=== PATIENT | male | born 1960 | race Caucasian/White ===

== ENCOUNTER 2020-12-01 13:30 | Emergency (ER) | payer MEDICAID, SELFPAY ==
[2020-12-01 14:13] VITALS: BP 121/81; PULSE 90; RESP 18; TEMP 36.4; O2SAT 97; BMI 25.0
--- NOTE | 2020-12-01 14:13 | ED_ITS ---
HPI - Fall General Chief Complaint: Head Injury Stated Complaint: fell hit head yesterday Time Seen by Provider: 12/01/20 14:13 Source: patient and family Mode of arrival: ambulatory Limitations: no limitations History of Present Illness HPI Narrative: Patient presenting ambulatory via triage with complaint of fall. Per patient and family has had several falls in the setting of alcohol intoxication. He does have a habit of drinking alcohol on a daily basis. He was drinking yesterday when he fell and front of his head on the ground apparently. No LOC. or for dermal symptoms. Slight headache since. MD complaint: fall Onset (ago): day(s) Fall from: standing Place fall occurred: home Loss of consciousness: none Prolonged down time: no Location of injury: head Related Data Allergies Allergy/AdvReac Type Severity Reaction Status Date / Time No Known Allergies Allergy Verified 12/01/20 14:15 [facility] Past Medical History Medical History (Updated 12/02/20 @ 00:01 by Flakito Alexander) Hypertension Surgical History (Updated 12/01/20 @ 14:16 by Becky Cm) No pertinent past surgical history Social History Social History Advance Directives: No Advance Directives Information Provided: No Physical Exam Vital Signs: Vital Signs: Last Vital Signs Temp 97.6 F 12/01/20 14:13 Pulse 90 12/01/20 14:13 Resp 18 12/01/20 14:13 BP 121/81 12/01/20 14:13 Pulse Ox 97 12/01/20 14:13 Body Mass Index 25.0 Course Course Course Narrative: 1410 60-year-old male presenting with complaint of fall in the setting of alcohol intoxication. Last fall yesterday. Has some mild headache since. On exam nontoxic appearing. No obvious signs of trauma. Patient triaged to main emergency room. Head CT ordered. Discharge Plan Discharge Clinical Impression: Closed head injury Patient Disposition: Home, Self-Care Additional Instructions: CT of the head did not show any bleed or skull fracture and did not show any dangerous condition now Best advice is use the walker and try to refrain from drinking Return any time any worse condition or concerns If headache or symptoms persist he may need a 2nd CT to rule out a subdural, which is a very slow bleed that might not be seen on initial imaging, there was no bleed seen today Interventions: ED Discharge Assessment Last Done: 12/01/20 17:53 Discharge Date/Time: 12/01/20 17:54
--- NOTE | 2020-12-01 14:15 | CT_ITS ---
EXAMINATION: CT HEAD WITHOUT CONTRAST CLINICAL INFORMATION: Status post fall. Headache. COMPARISON: None TECHNIQUE: Contiguous axial imaging was performed from the skull base to vertex without intravenous administration of contrast. This CT examination was performed using dose optimization techniques as appropriate, variously including the following: *Automated exposure control *Adjustment of mA and/or kV according to patient size (this includes techniques or standardized protocols for targeted exams where dose is matched to indication/reason for exam; i.e. extremities or head) *Use of iterative reconstruction technique DLP: 778 mGy-cm FINDINGS: There is no evidence of acute intracranial hemorrhage or territorial infarction. No abnormal mass effect or midline shift is seen. Chandler to white matter differentiation is well preserved. No extra-axial fluid collections are identified. The ventricles are normal in size. There is no abnormal attenuation within the brain parenchyma. The osseous structures and soft tissues are normal. The mastoid air cells and visualized portions of the paranasal sinuses are well aerated. CT/CT head/brain wo con IMPRESSION: No acute intracranial process seen
== END 2020-12-01 17:54 | disposition home or self-care (01) ==
PROVIDERS: Emergency Provider Emergency Medicine
DX: S09.90XA Unspecified injury of head, initial encounter (principal); W01.0XXA Fall on same level from slipping, tripping and stumbling without subsequent striking against object, initial encounter; Z91.81 History of falling; I10 Essential (primary) hypertension; F10.920 Alcohol use, unspecified with intoxication, uncomplicated; Y90.9 Presence of alcohol in blood, level not specified; Y93.89 Activity, other specified; Y92.480 Sidewalk as the place of occurrence of the external cause; Y99.9 Unspecified external cause status
CPT/HCPCS: 70450; 99283; 99284

== ENCOUNTER 2020-12-23 04:52 | Inpatient (IN) | payer MEDICAID, SELFPAY ==
[2020-12-23] VITALS (8 sets, daily range): BP systolic 138–171; BP diastolic 0–110; PULSE 95–116; RESP 14–24; TEMP 36.9–37.7; O2SAT 96–100; BMI 24.9
--- NOTE | 2020-12-23 | CT_ITS ---
EXAMINATION: CT CHEST WITHOUT CONTRAST CLINICAL INFORMATION: Question right apical lung lesion COMPARISON: Previous chest x-ray from earlier the same day, cervical spine CT from earlier the same day and previous chest chest CT January 2013 TECHNIQUE: Multidetector volumetric CT imaging of the chest was done. Axial MIP volume rendering provided. Sagittal and coronal reformatted images were obtained. This CT examination was performed using dose optimization techniques as appropriate, variously including the following: *Automated exposure control *Adjustment of mA and/or kV according to patient size (this includes techniques or standardized protocols for targeted exams where dose is matched to indication/reason for exam; i.e. extremities or head) *Use of iterative reconstruction technique DLP: 262 mGy-cm FINDINGS: LUNGS: Evaluation of the lungs is limited due to artifact from respiratory motion. There is evidence of emphysema. There is biapical pleural and parenchymal scarring. There is an abnormal parenchymal density seen at the right lung apex. This is partially calcified. This measures 1.6 x 5.8 cm in AP and transverse dimension axial image 96 series 6 compared to 0.7 x 4.5 cm on January 2013 exam. There is an abnormal parenchymal density that is partially calcified at the left lung apex that is increased as well. This measures 0.8 x 2.7 cm axial image 57 series 6 compared to 0.6 x 2.8 cm on January 2013 exam. This is partially calcified as well. There are areas of increased peripheral or subpleural attenuation seen in the dependent right lower lobe. Appearance is questionable for a dependent atelectasis versus possible small infiltrate. The lungs are otherwise clear. MEDIASTINUM: The visualized thyroid gland is unremarkable. There are no enlarged hilar or mediastinal lymph nodes. The heart does not appear enlarged. There is no coronary artery calcification. There is no pericardial effusion. The thoracic aorta is normal in caliber. There is diffuse wall thickening of the esophagus. PLEURA: There is a very small right pleural effusion or pleural thickening. There is no left pleural effusion. There is no pneumothorax. AXILLA: No lymphadenopathy. UPPER ABDOMEN: There is fatty infiltration of the liver. There is thickening of the left anterior pararenal fascia and lateral conal fascia. OSSEOUS STRUCTURES: There are degenerative changes of the spine. CT/CT chest wo con IMPRESSION: Emphysema. Biapical pleural parenchymal scarring. Interval increase in size in bilateral biapical partially calcified parenchymal densities, right larger than left. PET/CT or chest CT follow-up recommended. Increased peripheral or subpleural attenuation in the right lower lobe, question representing dependent atelectasis versus small infiltrate. Diffuse wall thickening of the esophagus suggestive of esophagitis. Fatty liver. Thickening of the left anterior pararenal and lateral conal fascia. This is a nonspecific finding but most commonly seen with pancreatitis.
--- NOTE | 2020-12-23 04:55 | ECG_ITS ---
Test Reason : SEIZURE Blood Pressure : / mmHG Vent. Rate : 101 BPM Atrial Rate : 101 BPM P-R Int : 146 ms QRS Dur : 086 ms QT Int : 388 ms P-R-T Axes : 077 076 080 degrees QTc Int : 503 ms Sinus tachycardia Otherwise normal ECG No previous ECGs available Referred By: Ruth Sotelo Electronically Signed By:RAD DRIVER MD
--- NOTE | 2020-12-23 04:59 | XR_ITS ---
EXAMINATION: CHEST 1 VIEW CLINICAL INFORMATION: Cough. COMPARISON: None. TECHNIQUE: An AP view of the chest is provided. FINDINGS: The cardiac silhouette is not enlarged. The mediastinal and hilar contours are unremarkable. There are neither pleural effusions nor pneumothoraces. There are no consolidations. The osseous structures are unremarkable. XR/XR chest 1V IMPRESSION: No evidence for acute disease.
--- NOTE | 2020-12-23 05:08 | ED.SEIZURE ---
HPI - Seizure General Chief Complaint: Seizure Stated Complaint: seizure Time Seen by Provider: 12/23/20 04:55 Source: patient Mode of arrival: EMS History of Present Illness HPI Narrative: This is a 60-year-old male chronic alcoholic (multiple bottles a day) and as per who called EMS she purchased a walker for him so that he can be ?more steady on his feet while drinking? ?. EMS was called this evening for patient having seizures after unable to drink alcohol yesterday due to development nausea and vomiting. EMS states that on arrival patient was having tonic-clonic seizures and was noted to be cyanotic in appearance. On arrival, patient is poor historian and appears to still be somewhat postictal. MD complaint: seizure Related Data Allergies Allergy/AdvReac Type Severity Reaction Status Date / Time No Known Allergies Allergy Verified 12/01/20 14:15 Review of Systems Review of Systems: Yes Unobtainable due to mental condition PMFSH Past Medical History Source: nursing notes reviewed Medical History (Updated 12/23/20 @ 05:13 by Ruth Sotelo MD) Alcohol abuse DTs (delirium tremens) Hypertension Surgical History (Updated 12/01/20 @ 14:16 by Becky Cm) No pertinent past surgical history Social History Social History Advance Directives: No Physical Exam Vital Signs: Vital Signs: Last Vital Signs Temp 98.5 F 12/23/20 05:19 Pulse 102 H 12/23/20 06:00 Resp 24 H 12/23/20 06:00 BP 164/107 H 12/23/20 06:00 Pulse Ox 98 12/23/20 06:00 Body Mass Index 24.9 VITAL SIGNS: Reviewed. GENERAL: Well developed, well nourished, in no acute distress. HEAD: Normocephalic/atraumatic, facial plethora EYES: PERRLA, EOMI NOSE: Nares patent bilateral OROPHARYNX: no oral lesions noted, posterior pharynx clear NECK: Supple, no adenopathy LUNGS: Normal breath sounds. No adventitious sounds or accessory muscle use. SpO2<97> CARDIOVASCULAR: Regular rate and rhythm without noted murmurs ABDOMEN: Soft, non-tender, non-distended with bowel sounds. EXTREMITIES: Cool to touch SKIN: Inspection of the skin reveals no rashes NEUROLOGIC: Postictal, no focal deficits noted but patient weak, tremulousness Course Course Course Narrative: This is a 60-year-old male with history and clinical presentation consistent with alcohol DTs secondary to withdrawal when unable to consume alcohol due to nausea and vomiting. Patient received 2 mg Versed here in the emergency department. - labs, chest x-ray, phenobarb protocol, COVID testing Signed out to Dr Dorsey: Follow-up labs, needs admission Reevaluation(s) Reevaluation #1: On re-evaluation patient is more alert and states he only takes a couple of shots a day but does endorse he has had withdrawal seizures before. Time: 06:30 MDM - Seizure Lab Data Result diagrams: 12/23/20 06:27 12/23/20 06:28 Labs: Lab Results 12/23/20 Range/Units 05:45 COVID-19 ([facility]) Negative (Negative) COVID-19 Clin Com See Note ECG Data Attestation: I personally reviewed and interpreted this ECG as follows: Prior ECG tracings: not available for review Interpretation: Sinus tachycardia, HR-101, no evidence of acute ischemia, NJ/QRS are within normal limits, but QTC is prolonged.
[2020-12-23 06:03] LABS: COVID-19 Test Negative (Negative)
--- NOTE | 2020-12-23 06:37 | CT_ITS ---
EXAMINATION: CT HEAD WITHOUT CONTRAST CT CERVICAL SPINE WITHOUT CONTRAST CLINICAL INFORMATION: Fall. Seizure. COMPARISON: CT head dated 12/01/2020 TECHNIQUE: Multidetector CT imaging of the head and cervical spine was performed without the use of intravenous contrast. Multiplanar reformats are reviewed. This CT examination was performed using dose optimization techniques as appropriate, variously including the following: *Automated exposure control *Adjustment of mA and/or kV according to patient size (this includes techniques or standardized protocols for targeted exams where dose is matched to indication/reason for exam; i.e. extremities or head) *Use of iterative reconstruction technique DLP: 46496 mGy-cm. FINDINGS: There is no evidence of acute intracranial hemorrhage or territorial infarction. No abnormal mass effect or midline shift is seen. Chandler to white matter differentiation is well preserved. No extra-axial fluid collections are identified. The ventricles are normal in size. Mild patchy subcortical and periventricular white matter low-attenuation changes statistically related to chronic small vessel ischemic disease. The osseous structures and soft tissues are normal. Mucus retention present within the right maxillary sinus. Remainder of the paranasal sinuses and mastoid air cells are clear. Atlantooccipital alignment is maintained. The vertebral bodies and posterior elements align normally. No acute fracture or subluxation. Vertebral body heights are maintained. Small endplate osteophytes present throughout the cervical spine with accompanying of vertebral arthrosis particularly at C6-C7 bilaterally, C3-C4 on the right. Moderate facet arthropathy at C2-C3 and C3-C4 on the right. Paraspinal soft tissues are unremarkable. Lung apices redemonstrate bullous emphysema and biapical pleural-parenchymal scarring. The appearance of the pleural parenchymal scarring is stable at the left lung apex but appears more masslike at the right lung apex, associated with calcifications. CT/CT cervical spine wo con IMPRESSION: * No acute intracranial pathology. [id number] chronic white matter small vessel ischemic changes. * No cervical spine fracture or malalignment. * Severe bullous emphysema with biapical pulmonary pleural-parenchymal scarring, stable in appearance of the left lung apex but more masslike in appearance of the right lung apex, associated with dystrophic calcification supporting chronic postinflammatory etiology. Nevertheless, given the patient's risk factors, PET/CT may be indicated to exclude neoplasm at the right lung apex.
--- NOTE | 2020-12-23 06:37 | CT_ITS ---
EXAMINATION: CT HEAD WITHOUT CONTRAST CT CERVICAL SPINE WITHOUT CONTRAST CLINICAL INFORMATION: Fall. Seizure. COMPARISON: CT head dated 12/01/2020 TECHNIQUE: Multidetector CT imaging of the head and cervical spine was performed without the use of intravenous contrast. Multiplanar reformats are reviewed. This CT examination was performed using dose optimization techniques as appropriate, variously including the following: *Automated exposure control *Adjustment of mA and/or kV according to patient size (this includes techniques or standardized protocols for targeted exams where dose is matched to indication/reason for exam; i.e. extremities or head) *Use of iterative reconstruction technique DLP: 45981 mGy-cm. FINDINGS: There is no evidence of acute intracranial hemorrhage or territorial infarction. No abnormal mass effect or midline shift is seen. Chandler to white matter differentiation is well preserved. No extra-axial fluid collections are identified. The ventricles are normal in size. Mild patchy subcortical and periventricular white matter low-attenuation changes statistically related to chronic small vessel ischemic disease. The osseous structures and soft tissues are normal. Mucus retention present within the right maxillary sinus. Remainder of the paranasal sinuses and mastoid air cells are clear. Atlantooccipital alignment is maintained. The vertebral bodies and posterior elements align normally. No acute fracture or subluxation. Vertebral body heights are maintained. Small endplate osteophytes present throughout the cervical spine with accompanying of vertebral arthrosis particularly at C6-C7 bilaterally, C3-C4 on the right. Moderate facet arthropathy at C2-C3 and C3-C4 on the right. Paraspinal soft tissues are unremarkable. Lung apices redemonstrate bullous emphysema and biapical pleural-parenchymal scarring. The appearance of the pleural parenchymal scarring is stable at the left lung apex but appears more masslike at the right lung apex, associated with calcifications. CT/CT head/brain wo con IMPRESSION: * No acute intracranial pathology. [id number] chronic white matter small vessel ischemic changes. * No cervical spine fracture or malalignment. * Severe bullous emphysema with biapical pulmonary pleural-parenchymal scarring, stable in appearance of the left lung apex but more masslike in appearance of the right lung apex, associated with dystrophic calcification supporting chronic postinflammatory etiology. Nevertheless, given the patient's risk factors, PET/CT may be indicated to exclude neoplasm at the right lung apex.
[2020-12-23] MEDS: LORazepam 2 MG/ML VIAL 1 MG IVPUSH (06:43)
[2020-12-23] MEDS: Magnesium Sulfate/H2O 2 GM/50 ML PIGGYBACK IV (06:44)
[2020-12-23 07:01] LABS: Ethanol < 10 mg/dL
[2020-12-23 07:06] LABS: Basophils Percent Auto 0.2 % (0-2); Hematocrit 38.8 % (42-52); Imm Gran Abs Auto 0.02 X10*3/uL (0.00-0.03); Imm Gran Pct Auto 0.3 % (0.0-0.4); Lymphocytes Absolute Auto 0.3 X10*3/uL (1.2-4.9); Lymphocytes Percent Auto 5.1 % (20-40); MANUAL DIFF FLAG SCAN; Mean Corpuscular HGB Conc 33.5 g/dl (31.0-36.0); Mean Corpuscular Volume 101.6 fL (80-98); Mean Platelet Volume 11.7 fL (9.4-12.4); Monocytes Absolute Auto 0.4 X10*3/uL (0.1-1.2); Monocytes Percent Auto 6.6 % (2-11); NRBC Pct Auto 0.3 /100WBC (0.0-0.2); Neutrophils Absolute Auto 5.5 X10*3/uL (2.0-8.3); Neutrophils Percent Auto 87.8 % (45-73); PLT CLUMP 1; Red Blood Count 3.82 X10*6/uL (4.60-5.80); Red Cell Distribution Width 15.9 % (11.0-16.0); SCAN SMEAR FLAG 1
[2020-12-23 07:28] LABS: White Blood Count 6.2 X10*3/uL (4.8-10.8)
[2020-12-23 07:32] LABS: Alanine Aminotransferase 102 U/L (0-40); Albumin Level 3.5 g/dL (3.5-5.0); Alkaline Phosphatase 158 U/L (39-117); Anion Gap 30 (12-20); Aspartate Amino Transferase 243 U/L (5-37); Bilirubin Total 4.2 mg/dL (0.0-1.0); Blood Urea Nitrogen 15 mg/dL (9-16); Calcium 7.6 mg/dL (8.4-10.2); Carbon Dioxide 15 mmol/L (22-29); Chloride 91 mmol/L (96-108); Creatinine Clr Calc Pharmacy 75.9; Estimated Glomerular Filt Rate > 60; Glucose Random 166 mg/dL (60-115); Lipase 1415 U/L (8-78); Magnesium 1.5 mg/dL (1.6-2.6); Potassium 4.8 mmol/L (3.3-5.1); Sodium 131 mmol/L (135-145); Total Protein 7.5 g/dL (6.5-8.0)
--- NOTE | 2020-12-23 07:34 | CT_ITS ---
EXAMINATION: CT ABDOMEN AND PELVIS WITH CONTRAST CLINICAL INFORMATION: Elevated LFTs. Lipase 1400 COMPARISON: None TECHNIQUE: Multidetector volumetric images were obtained from the superior aspect of the liver through the pubic symphysis following administration 85 mL of Omnipaque 350 intravenous contrast. Sagittal and coronal reformatted images were obtained on the technologist's workstation. Oral contrast: No This CT examination was performed using dose optimization techniques as appropriate, variously including the following: *Automated exposure control *Adjustment of mA and/or kV according to patient size (this includes techniques or standardized protocols for targeted exams where dose is matched to indication/reason for exam; i.e. extremities or head) *Use of iterative reconstruction technique DLP: 2482 mGy-cm FINDINGS: LUNG BASES: There is dependent right basilar atelectasis. The left lung base is clear. The heart size is normal. LIVER, GALLBLADDER, AND BILIARY TREE: The liver is normal in and shape. There is diffuse hypo-attenuation. No focal hepatic lesion or biliary ductal dilatation is present. The gallbladder is unremarkable with no evidence of radiopaque gallstones, gallbladder wall thickening, or obvious pericholecystic inflammatory changes. PANCREAS: The pancreas is homogeneous density and normal size. There is mild haziness along with tail of the pancreas There is mild peripancreatic fat stranding and paracolic fluid collection. Question pancreatitis SPLEEN: Unremarkable. ADRENAL GLANDS: Unremarkable. KIDNEYS AND URETERS: The kidneys are normal in size, shape, and attenuation. No hydronephrosis, hydroureter, or calculi seen. No perinephric stranding. BLADDER: Unremarkable. GASTROINTESTINAL TRACT: The small and large bowel are unremarkable. The appendix is unremarkable. ABDOMINAL WALL: No significant hernia is appreciated. LYMPH NODES: Normal. VASCULAR: Unremarkable. PELVIC VISCERA: There is no free fluid or mass. No abnormal lymph nodes or inguinal hernia.. OSSEOUS STRUCTURES:There is loss of disc height with vacuum disc phenomena and spondylosis L5-S1 disc level. No lytic or sclerotic process seen. CT/CT abdomen pelvis w con IMPRESSION: Diffuse hepatic steatosis without any visible focal mass. Mild posterior peripancreatic fat stranding along the tail of the pancreas with minimal fluid in the paracolic gutter. Findings are suspicious for pancreatitis.
[2020-12-23] MEDS: PHENobarbitaL sodium 130 MG/ML VIAL 283 MG IM (08:29)
[2020-12-23] MEDS: iohexoL 350 MG/ML 100 ML INFUS..BTL IV (08:30)
[2020-12-23 09:08] LABS: SLIDE REVIEW VERIFIED
[2020-12-23 10:09] LABS: Lactic Acid 2.4 mmol/L (0.5-2.0)
[2020-12-23] MEDS: PHENobarbitaL sodium 130 MG/ML VIAL 212 MG IM ×2 (10:53→14:35)
[2020-12-23] MEDS: 0.9 % Sodium Chloride 500 ML IV (10:53)
--- NOTE | 2020-12-23 10:54 | P.HPHOSP_ITS ---
History of Present Illness Date of Service: 12/23/20 Chief Complaint: Seizure 60-year-old man presenting to the ER after having a alcohol withdrawal seizure. 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 He reported that he he became quite sick vomiting multiple times over the last day and a half. He denied any blood in his vomit. Denied any diarrhea. Did report some epigastric abdominal pain that was often on. According to the patient he has no history of seizures past. He denied recent illness, fever, chills. He reports that he had been working up to 6 months ago however denied elaborate what transpired. Abdominal CT in the ER showed pancreatitis and hepatic steatosis. Sodium 131, lactic acid 2.4, magnesium 1.5, bilirubin 4.2, AST 243, ALT 102. vital signs stable though he was tachycardic. In the ER , he was given lorazepam, banana bag, magnesium and started on phenobarbital protocol. Review of Systems Review of Systems: Denies any recent fever chills or decrease in appetite respiratory denies any shortness of breath coverage production cardiovascular is adjustment of any PND or edema gastrointestinal See HPI genitourinary denies any dysuria frequency or hematuria musculoskeletal denies any joint pain or swelling neuropsych denies any weakness or seizures all other systems reviewed are negative [facility] Medical History (Updated 12/23/20 @ 07:40 by Elisa Dorsey DO) Alcohol abuse DTs (delirium tremens) Hypertension Surgical History (Updated 12/01/20 @ 14:16 by Becky Cm) No pertinent past surgical history Social History Advance Directives: No Meds Allergies Allergy/AdvReac Type Severity Reaction Status Date / Time No Known Allergies Allergy Verified 12/01/20 14:15 Home Medications Medication Instructions Recorded Confirmed Type metoprolol tartrate 50 mg PO BID 12/23/20 12/23/20 History Physical Exam Vital Signs and Narrative: Vital Signs: Last Vital Signs Temp 98.5 F 12/23/20 05:19 Pulse 95 12/23/20 06:42 Resp 20 12/23/20 06:42 BP 157/103 H 12/23/20 06:42 Pulse Ox 96 12/23/20 06:42 Body Mass Index 24.9 Appearing tired head is normocephalic atraumatic eyes pupils are PERRLA sclera is anicteric mouth throat mucous membranes are intact and moist neck is supple no lymphadenopathy, no JVD noted lung sounds are clear to auscultation heart regular rate rhythm, clear S1, S2 positive bowel sounds, abdomen is soft, mild tenderness neuro patient is alert x3, no focal deficits, tremulous hands Results Labs CBC and Chem 7: 12/23/20 06:27 12/23/20 06:28 Labs: Laboratory Results - last 24 hr 12/23/20 12/23/20 12/23/20 05:45 06:27 06:28 MCV 101.6 H MCH 34.0 H MCHC 33.5 RDW 15.9 Plt Count TNP MPV 11.7 Immature Gran % (Auto) 0.3 Neut % (Auto) 87.8 H Lymph % (Auto) 5.1 L [place] % (Auto) 6.6 Eos % (Auto) 0.0 Baso % (Auto) 0.2 Lymph # (Auto) 0.3 L [place] # (Auto) 0.4 Eos # (Auto) 0.0 Baso # (Auto) 0.0 Abs Immat Gran (auto) 0.02 Absolute Neuts (auto) 5.5 Absolute Nucleated RBC 0.020 H Nucleated RBC % (auto) 0.3 H Smear Tech's Comments VERIFIED Anion Gap 30 H Estim Creat Clear Calc 75.9 Estimated GFR > 60 Random Glucose 166 H Lactic Acid Calcium 7.6 L Magnesium 1.5 L Total Bilirubin 4.2 H AST 243 H ALT 102 H Alkaline Phosphatase 158 H Total Creatine Kinase Total Protein 7.5 Albumin 3.5 Lipase Ethyl Alcohol COVID-19 (BRENDAN) Negative COVID-19 Clin Com See Note 12/23/20 12/23/20 12/23/20 06:28 06:28 06:28 MCV MCH MCHC RDW Plt Count MPV Immature Gran % (Auto) Neut % (Auto) Lymph % (Auto) [place] % (Auto) Eos % (Auto) Baso % (Auto) Lymph # (Auto) [place] # (Auto) Eos # (Auto) Baso # (Auto) Abs Immat Gran (auto) Absolute Neuts (auto) Absolute Nucleated RBC Nucleated RBC % (auto) Smear Tech's Comments Anion Gap Estim Creat Clear Calc Estimated GFR Random Glucose Lactic Acid Calcium Magnesium Total Bilirubin AST ALT Alkaline Phosphatase Total Creatine Kinase 65 Total Protein Albumin Lipase 1415 H Ethyl Alcohol < 10 COVID-19 (BRENDAN) COVID-19 Clin Com 12/23/20 09:25 MCV MCH MCHC RDW Plt Count MPV Immature Gran % (Auto) Neut % (Auto) Lymph % (Auto) [place] % (Auto) Eos % (Auto) Baso % (Auto) Lymph # (Auto) [place] # (Auto) Eos # (Auto) Baso # (Auto) Abs Immat Gran (auto) Absolute Neuts (auto) Absolute Nucleated RBC Nucleated RBC % (auto) Smear Tech's Comments Anion Gap Estim Creat Clear Calc Estimated GFR Random Glucose Lactic Acid 2.4 H* Calcium Magnesium Total Bilirubin AST ALT Alkaline Phosphatase Total Creatine Kinase Total Protein Albumin Lipase Ethyl Alcohol COVID-19 (BRENDAN) COVID-19 Clin Com Imaging Radiologist's Impressions: Impressions Chest X-Ray 12/23/20 04:59 IMPRESSION: No evidence for acute disease. Cervical Spine CT 12/23/20 06:37 IMPRESSION: * No acute intracranial pathology. [id number] chronic white matter small vessel ischemic changes. * No cervical spine fracture or malalignment. * Severe bullous emphysema with biapical pulmonary pleural-parenchymal scarring, stable in appearance of the left lung apex but more masslike in appearance of the right lung apex, associated with dystrophic calcification supporting chronic postinflammatory etiology. Nevertheless, given the patient's risk factors, PET/CT may be indicated to exclude neoplasm at the right lung apex. Head CT 12/23/20 06:37 IMPRESSION: * No acute intracranial pathology. [id number]-[id number] chronic white matter small vessel ischemic changes. * No cervical spine fracture or malalignment. * Severe bullous emphysema with biapical pulmonary pleural-parenchymal scarring, stable in appearance of the left lung apex but more masslike in appearance of the right lung apex, associated with dystrophic calcification supporting chronic postinflammatory etiology. Nevertheless, given the patient's risk factors, PET/CT may be indicated to exclude neoplasm at the right lung apex. Abdomen/Pelvis CT 12/23/20 07:34 IMPRESSION: Diffuse hepatic steatosis without any visible focal mass. Mild posterior peripancreatic fat stranding along the tail of the pancreas with minimal fluid in the paracolic gutter. Findings are suspicious for pancreatitis. Assessment and Plan (1) Alcohol withdrawal seizure: Qualifiers: Complication of substance-induced condition: uncomplicated Qualified Code(s): F10.230 - Alcohol dependence with withdrawal, uncomplicated; R56.9 - Unspecified convulsions Status: Acute (2) Elevated liver function tests: Status: Acute (3) Pancreatitis: Qualifiers: Acute pancreatitis complication: unspecified Chronicity: acute Pancreatitis type: alcohol induced Qualified Code(s): K85.20 - Alcohol induced acute pancreatitis without necrosis or infection Status: Acute 60-year-old man admitted with alcohol withdrawal seizure, found to have multiple other electrolyte abnormalities in pancreatitis. Incidental lung mass found on x-ray. next Alcohol withdrawal seizure. Alcohol cessation over the last 2 days. No history of seizures in the past. Patient placed on phenobarbital protocol, seizure precautions, monitor neuro status. Discussed the importance of safely stopping chronic alcohol use. Pancreatitis. Related to heavy alcohol use. Continue IV fluid hydration. GI consult. Transaminitis. Alcohol abuse, hepatic steatosis. GI to follow. Check LFTs tomorrow, IV fluids. Hypomagnesemia. Related to alcohol use, dehydration, poor appetite. Repleted, recheck this evening. Hyponatremia. Related to alcohol use. Follow BMP. Avoid over correction. Incidental lung mass. Chest CT ordered. If abnormal consider consulting pulmonology. Hypertension. Continue metoprolol. DVT prophylaxis with heparin Discussed with Dr. Topete Full code
[2020-12-23 11:01] LABS: HCO3 VBG 21 mmol/L; PCO2 VBG 30 mmHg; PO2 VBG 100 mmHg; pH VBG 7.44 (7.32-7.43)
[2020-12-23 11:02] LABS: Base Excess VBG -1.9 mmol/L
[2020-12-23 11:04] LABS: Glucose Urine UA NEG (NEG); Leukocyte Esterase Urine NEG (NEG); Nitrite Urine NEG (NEG); Specific Gravity - Urine 1.015 (1.005-1.025); Urine Blood 2+ (NEG); Urine Ketones 40 MG/DL (NEG); Urine Protein 1+ MG/DL (NEG-TRACE)
[2020-12-23 11:05] LABS: Appearance Urine CLEAR; Color Urine YELLOW
[2020-12-23 11:10] LABS: Prothrombin Time 11.4 SEC (10.8-13.0)
[2020-12-23 11:20] LABS: WBC Urine 0-2 /HPF (0-4)
[2020-12-23 11:28] LABS: Reflex Lactate? Lactic Acid Added
[2020-12-23] MEDS: Heparin Sodium,Porcine 5,000 UNIT/ML VIAL 5000 UNIT SUBCUT (14:35)
[2020-12-23] MEDS: Lactated Ringers 1,000 ML 150 ML IVCONT ×2 (14:36→22:32)
[2020-12-23 15:08] LABS: Anion Gap 22 (12-20); Blood Urea Nitrogen 13 mg/dL (9-16); Calcium 7.6 mg/dL (8.4-10.2); Carbon Dioxide 22 mmol/L (22-29); Chloride 93 mmol/L (96-108); Creatinine Clr Calc Pharmacy 98.1; Estimated Glomerular Filt Rate > 60; Glucose Random 122 mg/dL (60-115); Magnesium 2.1 mg/dL (1.6-2.6); Potassium 4.1 mmol/L (3.3-5.1); Sodium 133 mmol/L (135-145)
--- NOTE | 2020-12-23 17:51 | P.EN_ITS ---
Event Note Date of Service: 12/23/20 Event Note: Addendum to H and P by Mid-level Provider I saw and examined the patient and participated in the mckinnon portion of the E/M service. I agree with the history and exam as documented by ADMIN SECRETARY. Pt presents with seizure and likely realted to alcohol withdrawal. Will admit for for Phenobarbital protocol for withdrawal and monitoring for seizureup. Otherwise, I agree with assessment and plan as outlined in the H and P.
--- NOTE | 2020-12-23 18:23 | CT_ITS ---
EXAMINATION: CT HEAD WITHOUT CONTRAST CLINICAL INFORMATION: EtOH COMPARISON: CT head 12/23/2020, 7:47 AM TECHNIQUE: Contiguous axial imaging was performed from the skull base to vertex without intravenous administration of contrast. Coronal and sagittal reformatted images are performed at the CT scanner. [This CT examination was performed using dose optimization techniques as appropriate, variously including the following: *Automated exposure control *Adjustment of mA and/or kV according to patient size (this includes techniques or standardized protocols for targeted exams where dose is matched to indication/reason for exam; i.e. extremities or head) *Use of iterative reconstruction technique] DLP: 682 mGy-cm. FINDINGS: There is no evidence of acute intracranial hemorrhage or territorial infarction. No abnormal mass-effect or midline shift is seen. Chandler to white matter differentiation is well preserved. No extra-axial fluid collections are identified. There is age-appropriate atrophy with prominence of the ventricles and the sulci and hypodensity of the periventricular white matter due to chronic small vessel ischemic disease. There are vascular calcifications of the internal carotid arteries bilaterally. There is no osseous abnormality. There is sinus mucosal thickening in the ethmoid sinuses bilateral. The mastoid air cells and middle ear cavities are normally aerated. CT/CT head/brain wo con IMPRESSION: No acute intracranial pathology.
--- NOTE | 2020-12-23 19:28 | PM.GICN ---
History of Present Illness Data of Consult Service Date: 12/23/20 Requesting physician: Maribel Yost Primary Care Provider: None Physician/MD Nalini HPI Reason for consult: Abdominal pain, abnormal CT/? pancreatitis, and abnormal liver profile. 60 yo male, who is a new patient to me. He drinks significant amount of whiskey daily. Came to the ER due to abdominal pain, nausea, vomiting for at least a day and a half. He has not had similar episode in the past. Review of Systems Review of Systems: Yes all other systems are reviewed and are negative Cardiovascular: Cardiovascular: Denies chest pain, Reports epigastric discomfort, Denies leg edema, Denies Loss of Consciousness, Denies palpitations and Denies dyspnea on exertion Respiratory: Respiratory: Denies cough and Denies dyspnea on exertion Gastrointestinal: Gastrointestinal: Reports no additional gastrointestinal complaints Psychiatric: Comments: Chronic alcohol abuse. Endocrine: Endocrine: Denies palpitations PMFSH Past Medical History Medical History (Updated 12/23/20 @ 07:40 by Elisa Dorsey DO) Alcohol abuse DTs (delirium tremens) Hypertension Surgical History Surgical History Hx of colonoscopy No pertinent past surgical history Social History Social History (Updated 12/23/20 @ 19:31 by Karen Roth MD) Household Members: Spouse Housing: House Do you presently have visiting nurse or other home services: No Smoking Status: Never smoker Second Hand Smoke Exposure: No Use of substances other than those prescribed or required for medical reasons: No Currently Displaying Signs/Symptoms of Drug Intoxication Withdrawal: No Have you been hit, kicked, punched, or otherwise hurt by someone within the past year? If so, by whom?: No Do you feel safe in your current relationship?: Yes Is there a partner from a previous relationship who is making you feel unsafe now?: No Are you made to feel afraid or neglected: No Advance Directives: No Do you have thoughts of harming others: None Do you have a plan to hurt others: No Plan Recently lost weight without trying: No service: Yes Current occupational status: unemployed Meds Allergies Allergy/AdvReac Type Severity Reaction Status Date / Time No Known Allergies Allergy Verified 12/01/20 14:15 Home Medications Medication Instructions Recorded Confirmed Type metoprolol tartrate 50 mg PO BID 12/23/20 12/23/20 History Physical Exam Vital Signs: Vital Signs: Last Vital Signs Temp 99.4 F 12/23/20 14:38 Pulse 110 H 12/23/20 19:24 Resp 14 12/23/20 19:24 BP 138/96 H 12/23/20 19:24 Pulse Ox 99 12/23/20 19:24 Body Mass Index 24.9 Const: General: alert, acute distress and ill appearing Orientation/consciousness: patient oriented x3 Resp: Auscultation: clear to auscultation bilaterally and diminished lung sounds Cardio: Rate: regular rate Rhythm: regular rhythm Heart sounds: no murmurs GI: Inspection: No abdominal wall ecchymosis and Yes distended Palpation (GI): Soft to palpation and Tenderness to palpation present (GI) Rectal Exam - Male: Yes deferred Neuro: General: patient oriented x3 Results Labs CBC & Chem 7: 12/24/20 06:29 12/24/20 06:29 Labs: Short CBC 12/23/20 Range/Units 06:27 WBC 6.2 (4.8-10.8) X10*3/uL Hgb 13.0 L (14.0-18.0) g/dl Hct 38.8 L (42-52) % Plt Count TNP BMP 12/23/20 12/23/20 06:28 14:32 Sodium 131 L 133 L Potassium 4.8 4.1 Chloride 91 L 93 L Carbon Dioxide 15 L 22 BUN 15 13 Creatinine 1.06 0.82 Calcium 7.6 L 7.6 L Cardiac Enzymes 12/23/20 Range/Units 06:28 Total Creatine Kinase 65 (38-174) U/L Liver Function 12/23/20 Range/Units 06:28 Total Bilirubin 4.2 H (0.0-1.0) mg/dL AST 243 H (5-37) U/L ALT 102 H (0-40) U/L Alkaline Phosphatase 158 H (39-117) U/L Albumin 3.5 (3.5-5.0) g/dL Urine 12/23/20 Range/Units 10:32 Urine Color YELLOW Urine Appearance CLEAR Urine pH 6.0 (5.0-8.0) Ur Specific [place] 1.015 (1.005-1.025) Urine Protein 1+ H (NEG-TRACE) MG/DL Urine Glucose (UA) NEG (NEG) MG/DL Assessment and Plan (1) Elevated liver function tests: Status: [facility]: BILI/ALK PHOS: 0.3/46, AST/ALT: /--ALB-4.2-CT did not show Hepatomegaly. There was decreased attenuation c/ Hepatic Steatosis.--No gallstones noted--may need U/S Changes TODAY consistent with possible Acute Steatohepatitis. monitor daily. Will follow (2) Alcohol abuse: Status: Acute Patient on withdrawal protocol (3) Pancreatitis: Qualifiers: Acute pancreatitis complication: unspecified Chronicity: acute Pancreatitis type: alcohol induced Qualified Code(s): K85.20 - Alcohol induced acute pancreatitis without necrosis or infection Status: Acute CT ABD--suggested acute pancreatitis --tail of pancreas--the LIPASE was elevated @ 1415. Follow Lipase, CA++,ALB. Diet as tolerated low fat, if clears include ENSURE CLEAR TID
--- NOTE | 2020-12-23 20:37 | PC.NURSE ---
PT ASSISTED TO BEDSIDE COMMODE, HAD A BM. PT PULLING OFF HOSPITAL GOWN BEFORE ASSISTED TO COMMODE. PT STILL CONFUSED AT TIMES.
[2020-12-23] MEDS: Metoprolol Tartrate 50 MG TABLET PO (21:43)
[2020-12-23] MEDS: PHENobarbitaL 15 MG TABLET 45 MG PO (21:43)
--- NOTE | 2020-12-23 22:48 | MHC.CM.PN ---
CM met with pt. Orientated to person and place. Unsure what happened to him that brought him to the hospital. Reviewed seizure with pt. States has happened before. States he has a problem with alcohol . CM asked if he would be willing to speak with recovery/addiction services. Agreeable. [place] text to Arben Alarcon. Pt unsure about PCP. No HCP. Pt has just received phenobarbital, a bit sleepy and vague. Will address PCP and HCP tomorrow. Tells CM he was in the [facility] 6 years. Does not use [facility] services. Denies using a walker or cane. CM explained to pt that he is admitted, but will stay in the ED until a inpatient bed becomes available. D/C plan is home without services with to provide transportation. CM to follow for D/C needs.
--- NOTE | 2020-12-23 23:14 | PC.NURSE ---
PT ASSISTED BY 2 TO BEDSIDE COMMODE. PT CONFUSED AND UNSTEADY ON HIS FEET. PT HAS small amount of diarrhea. pt asked, after having difficulty understanding commands will i be normal again?
[2020-12-24] VITALS (8 sets, daily range): BP systolic 125–161; BP diastolic 70–96; PULSE 72–112; RESP 18–20; TEMP 36.6–37.3; O2SAT 94–98
[2020-12-24] MEDS: Heparin Sodium,Porcine 5,000 UNIT/ML VIAL 5000 UNIT SUBCUT ×3 (01:26→23:43)
--- NOTE | 2020-12-24 05:25 | PC.NURSE ---
PT UP AND SEATED ON SIDE OF BED, NEEDS TO USE URINAL. PT IN A HOSPITAL BED, INCONTINENT OF SMALL AMOUNT OF GREEN/BROWN COLORED STOOL. LINEN AND GOWN CHANGED, PT CLEANED.
[2020-12-24] MEDS: Lactated Ringers 1,000 ML 150 ML IVCONT ×3 (05:30→19:45)
[2020-12-24 06:53] LABS: Basophils Percent Auto 0.2 % (0-2); Eosinophils Percent Auto 0.2 % (0-4); Hematocrit 31.7 % (42-52); Imm Gran Abs Auto 0.02 X10*3/uL (0.00-0.03); Imm Gran Pct Auto 0.3 % (0.0-0.4); Lymphocytes Absolute Auto 0.7 X10*3/uL (1.2-4.9); MANUAL DIFF FLAG SCAN; Mean Corpuscular HGB Conc 34.7 g/dl (31.0-36.0); Mean Corpuscular Volume 97.8 fL (80-98); Mean Platelet Volume 12.1 fL (9.4-12.4); Monocytes Absolute Auto 0.4 X10*3/uL (0.1-1.2); Monocytes Percent Auto 6.7 % (2-11); NRBC Pct Auto 0.5 /100WBC (0.0-0.2); Neutrophils Percent Auto 81.6 % (45-73); Red Blood Count 3.24 X10*6/uL (4.60-5.80); Red Cell Distribution Width 15.4 % (11.0-16.0); SCAN SMEAR FLAG 1; White Blood Count 6.1 X10*3/uL (4.8-10.8)
--- NOTE | 2020-12-24 07:07 | PC.NURSE ---
report taken from catina best pt here for ?seizure and etoh abuse. pt is confused and frequently incontinent of urine and bm. pt is high fall risk, in hospital bed w alarms on. pt appears to be sleeping at this time, rr even/unlabored, wctm.
[2020-12-24 07:17] LABS: Platelet Count 60 X10*3/uL (160-400)
[2020-12-24 07:18] LABS: Alanine Aminotransferase 92 U/L (0-40); Albumin Level 3.1 g/dL (3.5-5.0); Alkaline Phosphatase 145 U/L (39-117); Anion Gap 19 (12-20); Aspartate Amino Transferase 244 U/L (5-37); Bilirubin Direct 2.5 mg/dL (0.0-0.5); Bilirubin Total 3.3 mg/dL (0.0-1.0); Blood Urea Nitrogen 8 mg/dL (9-16); Calcium 7.8 mg/dL (8.4-10.2); Carbon Dioxide 25 mmol/L (22-29); Chloride 93 mmol/L (96-108); Creatinine Clr Calc Pharmacy 134.1; Estimated Glomerular Filt Rate > 60; Glucose Random 84 mg/dL (60-115); Potassium 3.1 mmol/L (3.3-5.1); Sodium 134 mmol/L (135-145); Total Protein 6.4 g/dL (6.5-8.0)
[2020-12-24 08:43] LABS: SLIDE REVIEW VERIFIED
[2020-12-24] MEDS: Metoprolol Tartrate 50 MG TABLET PO ×2 (08:54→20:41)
[2020-12-24] MEDS: PHENobarbitaL 15 MG TABLET 45 MG PO ×2 (08:54→20:41)
[2020-12-24 09:13] LABS: Magnesium 1.7 mg/dL (1.6-2.6)
[2020-12-24] MEDS: Thiamine HCL 200 MG/2 ML VIAL 100 MG IM (09:37)
--- NOTE | 2020-12-24 11:47 | HO.PM.IMPN ---
Subjective Subjective Date of Service: 12/24/20 Interval History: Seen in f/u for alcohol withdrawal and seizure. He is very weak, has tremors and incontinent Review of Systems Gen: no fever Resp: no sob, no cough CV: no chest, no JUAREZ, no leg edema GI: No n/v, no abd pain Neuro: No confusion, weak Physical Exam Vital Signs: Vital Signs: Last Vital Signs Temp 97.9 F 12/24/20 11:27 Pulse 95 12/24/20 11:27 Resp 18 12/24/20 11:27 BP 125/83 12/24/20 11:27 Pulse Ox 98 12/24/20 11:27 Body Mass Index 24.9 Const: General: cooperative Orientation/consciousness: patient oriented x3 Resp: Effort & Inspection: normal respiratory effort and able to speak in complete sentences Cardio: Rate: regular rate Heart sounds: S1 normal heart sound present and S2 normal heart sound present Skin: General skin exam: no rashes or lesions noted Neuro: Other: fine tremors in hand General: patient oriented x3 Psych: Appearance: grossly normal Objective Data Current Medications Generic Name Dose Route Start Last Admin Trade Name Freq PRN Reason Stop Dose Admin Folic Acid 1 mg 12/24/20 09:00 12/24/20 09:38 Folic Acid 1 Mg/0.2 Ml Syringe IM 12/26/20 09:01 1 mg DAILY MARQUISE Administration Heparin Sodium (Porcine) 5,000 unit 12/23/20 12:15 12/24/20 11:39 Heparin Sodium,Porcine 5,000 Unit/Ml Vial SUBCUT 5,000 unit Q12H MARQUISE Administration Lactated Ringer's 1,000 mls @ 150 mls/hr 12/23/20 12:15 12/24/20 11:40 Lr IVCONT Infused .Q6H40M MARQUISE Infusion Metoprolol Tartrate 50 mg 12/23/20 21:00 12/24/20 08:54 Metoprolol Tartrate 50 Mg Tablet PO 50 mg BID MARQUISE Administration Protocol Ondansetron HCl 4 mg 12/23/20 12:14 Ondansetron Hcl 4 Mg/2 Ml Vial IVPUSH Q8H PRN Nausea and Vomiting Pharmacy Consult 1 each 12/23/20 06:34 Consult Rx Perform Med Rec MISCELLANE ONCE PRN Consult order Phenobarbital 45 mg 12/23/20 21:00 12/24/20 08:54 Phenobarbital 15 Mg Tablet PO 12/25/20 09:01 45 mg BID MARQUISE Administration Protocol Phenobarbital 15 mg 12/25/20 21:00 Phenobarbital 15 Mg Tablet PO 12/27/20 09:01 BID MARQUISE Protocol Phenobarbital 15 mg 12/28/20 09:00 Phenobarbital 15 Mg Tablet PO 12/29/20 09:01 DAILY [facility] Protocol Sodium Chloride 3 ml 12/23/20 16:00 12/24/20 08:03 0.9 % Sodium Chloride Flush 3 Ml Syringe IVFLUSH Not Given QSHIFT [facility] Thiamine HCl 100 mg 12/24/20 09:00 12/24/20 09:37 Thiamine Hcl 200 Mg/2 Ml Vial IM 100 mg DAILY MARQUISE Administration Labs CBC & Chem 7: 12/24/20 06:29 12/24/20 06:29 Assessment and Plan (1) Alcohol withdrawal seizure: Status: Acute (2) Elevated liver function tests: Status: Acute (3) Pancreatitis: Status: Acute Assessment and Plan: 60-year-old man admitted with alcohol withdrawal seizure, found to have multiple other electrolyte abnormalities in pancreatitis. Incidental lung mass found on x-ray. next Alcohol withdrawal seizure. 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 Related to heavy alcohol use. Continue IV fluid hydration. GI consult. -Advace diet as ole Transaminitis. Alcohol abuse, hepatic steatosis. GI to follow. Check LFTs tomorrow, IV fluids. Hypomagnesemia. Related to alcohol use, dehydration, poor appetite. Repleted, and now normal Hyponatremia. Related to alcohol use. Follow BMP. Avoid over correction. Incidental lung mass. Chest CT shows Emphysema. Biapical pleural parenchymal scarring. Interval increase in size in bilateral biapical partially calcified parenchymal densities, right larger than left. PET/CT or chest CT follow-up recommended. Increased peripheral or subpleural attenuation in the right lower lobe, question representing dependent atelectasis versus small infiltrate. Diffuse wall thickening of the esophagus suggestive of esophagitis. Fatty liver. Thickening of the left anterior pararenal and lateral conal fascia. This is a nonspecific finding but most commonly seen with pancreatitis. -Further management as outpatient Hypertension. Continue metoprolol. Hypokalemia--oral supplement DVT prophylaxis with heparin Discussed with Dr. Efrem Salgado code
[2020-12-24] MEDS: Potassium Chloride Packet 20 MEQ PACKET 40 MEQ PO (13:04)
--- NOTE | 2020-12-24 13:27 | MHC.RECOVSUP ---
Recovery Support note: Patient is a 60 year old [place] Konger speaking male who presented to [facility] due to a seizure related to alcohol withdrawal. This show card writer and the Recovery Support Nurse met with patient to discuss his alcohol use and treatment options. Patient was resting comfortably in the hospital bed of 444-1 when the Recovery Support Team entered the room. Per ED documentation, patient drinks multiple bottles of alcohol a day. Patient reports that he has had brief periods of sobriety here and there however was unable to describe any extended periods. Reports that his also drinks but that she has recently stopped when patient was admitted to the hospital. Discussed outpatient recovery supports with patient. Patient was familiar with AA groups however he has not attended any in the past. Patient provided with information on how to get access to support groups and encouraged patient to do so when he is feeling up for it. Discussed IOP with patient. Patient expressed interest and accepted information on this resource. Recovery Support Nurse discussed medications for alcohol use disorder and provided patient with information on each medication and information on the [facility] for patient to get connected with a prescriber if he is interested. Patient reports no questions at this time. Patient provided with numbers for the Recovery Support Team in the event that he has questions after reviewing the material or if he is interested in additional supports. Discussed consultation with patient's RN.
[2020-12-24 15:05] LABS: C Reactive Protein 4.17 mg/dL (< or = 0.50); Gamma Glutamyl Transpeptidase 1874 U/L (11-51); Lactate Dehydrogenase 394 U/L (118-273)
--- NOTE | 2020-12-24 15:08 | PM.GIPN ---
Subjective Subjective Date of Service: 12/25/20 Interval History: Patient admits that he is shakey. He is very vague about how much he was eating before coming in hospital. Tangentially says his cooks a great Lasagna. He was in the [employer]. He used to smoke cigarettes--at least a pack a day. Unclear exactly when he stopped. (There was imaging in past on a CT that documented Paraseptal emphysema.) Physical Exam Vital Signs: Vital Signs: Last Vital Signs Temp 97.9 F 12/24/20 11:27 Pulse 95 12/24/20 11:27 Resp 18 12/24/20 11:27 BP 125/83 12/24/20 11:27 Pulse Ox 98 12/24/20 11:27 Body Mass Index 24.9 Const: Other: FACIAL FLUSHING. General: cooperative, awake, anxious and diaphoretic Orientation/consciousness: patient oriented x3 Resp: Effort & Inspection: normal respiratory effort and able to speak in complete sentences Cardio: Rate: regular rate Rhythm: regular rhythm GI: Inspection: Yes distended Palpation (GI): Firmness to palpation present (GI) and no masses Neuro: General: patient oriented x3 Objective Data Labs CBC & Chem 7: 12/24/20 06:29 12/24/20 06:29 Labs: Laboratory Results - last 24 hr 12/23/20 12/24/20 12/24/20 14:32 06:29 06:29 WBC 6.1 RBC 3.24 L Hgb 11.0 L Hct 31.7 L MCV 97.8 MCH 34.0 H MCHC 34.7 RDW 15.4 Plt Count 60 L MPV 12.1 Immature Gran % (Auto) 0.3 Neut % (Auto) 81.6 H Lymph % (Auto) 11.0 L [place] % (Auto) 6.7 Eos % (Auto) 0.2 Baso % (Auto) 0.2 Lymph # (Auto) 0.7 L [place] # (Auto) 0.4 Eos # (Auto) 0.0 Baso # (Auto) 0.0 Abs Immat Gran (auto) 0.02 Absolute Neuts (auto) 5.0 Absolute Nucleated RBC 0.030 H Nucleated RBC % (auto) 0.5 H Smear Tech's Comments VERIFIED Sodium 133 L 134 L Potassium 4.1 3.1 L D Chloride 93 L 93 L Carbon Dioxide 22 25 Anion Gap 22 H 19 BUN 13 8 L Creatinine 0.82 0.60 Estim Creat Clear Calc 98.1 134.1 Estimated GFR > 60 > 60 Random Glucose 122 H 84 Calcium 7.6 L 7.8 L Magnesium 2.1 Total Bilirubin 3.3 H Direct Bilirubin 2.5 H GGT 1874 H AST 244 H ALT 92 H Alkaline Phosphatase 145 H Lactate Dehydrogenase 394 H Total Creatine Kinase 215 H D C-Reactive Protein 4.17 H Total Protein 6.4 L Albumin 3.1 L 12/24/20 08:34 WBC RBC Hgb Hct MCV MCH MCHC RDW Plt Count MPV Immature Gran % (Auto) Neut % (Auto) Lymph % (Auto) [place] % (Auto) Eos % (Auto) Baso % (Auto) Lymph # (Auto) [place] # (Auto) Eos # (Auto) Baso # (Auto) Abs Immat Gran (auto) Absolute Neuts (auto) Absolute Nucleated RBC Nucleated RBC % (auto) Smear Tech's Comments Sodium Potassium Chloride Carbon Dioxide Anion Gap BUN Creatinine Estim Creat Clear Calc Estimated GFR Random Glucose Calcium Magnesium 1.7 Total Bilirubin Direct Bilirubin GGT AST ALT Alkaline Phosphatase Lactate Dehydrogenase Total Creatine Kinase C-Reactive Protein Total Protein Albumin Progress Note: A&P Assessment and plan (1) Elevated liver function tests: Status: Acute Assessment and Plan: Bilirubin trending down. This is good but if he gets into [place] DT's may be at risk for worsening pancreatitis. GGT very elevated c/ Steatohepatitis. Monitor what patient is eating. Daily liver profile and INR. (2) Pancreatitis: Status: Acute Assessment and Plan: This appears to be his first episode. Worrisome that his albumin is 3.1. Optimize protein calorie nutrition. Fall Risk Details Current Medications: Current Medications Generic Name Dose Route Start Last Admin Trade Name Freq PRN Reason Stop Dose Admin Folic Acid 1 mg 12/24/20 09:00 12/24/20 09:38 Folic Acid 1 Mg/0.2 Ml Syringe IM 12/26/20 09:01 1 mg DAILY MARQUISE Administration Heparin Sodium (Porcine) 5,000 unit 12/23/20 12:15 12/24/20 11:39 Heparin Sodium,Porcine 5,000 Unit/Ml Vial SUBCUT 5,000 unit Q12H MARQUISE Administration Lactated Ringer's 1,000 mls @ 150 mls/hr 12/23/20 12:15 12/24/20 13:04 Lr IVCONT 150 mls/hr .Q6H40M MARQUISE Administration Metoprolol Tartrate 50 mg 12/23/20 21:00 12/24/20 08:54 Metoprolol Tartrate 50 Mg Tablet PO 50 mg BID MARQUISE Administration Protocol Ondansetron HCl 4 mg 12/23/20 12:14 Ondansetron Hcl 4 Mg/2 Ml Vial IVPUSH Q8H PRN Nausea and Vomiting Pharmacy Consult 1 each 12/23/20 06:34 Consult Rx Perform Med Rec MISCELLANE ONCE PRN Consult order Phenobarbital 45 mg 12/23/20 21:00 12/24/20 08:54 Phenobarbital 15 Mg Tablet PO 12/25/20 09:01 45 mg BID MARQUISE Administration Protocol Phenobarbital 15 mg 12/25/20 21:00 Phenobarbital 15 Mg Tablet PO 12/27/20 09:01 BID MARQUISE Protocol Phenobarbital 15 mg 12/28/20 09:00 Phenobarbital 15 Mg Tablet PO 12/29/20 09:01 DAILY [facility] Protocol Sodium Chloride 3 ml 12/23/20 16:00 12/24/20 15:05 0.9 % Sodium Chloride Flush 3 Ml Syringe IVFLUSH Not Given QSHIFT [facility] Thiamine HCl 100 mg 12/24/20 09:00 12/24/20 09:37 Thiamine Hcl 200 Mg/2 Ml Vial IM 100 mg DAILY MARQUISE Administration Time Spent With Patient Time: Total time spent is greater than 50% in coordination of care (as documented) at patient's floor/unit and/or counseling patient: Time with patient: 15 - 24 minutes
[2020-12-24 15:18] LABS: Lipase 680 U/L (8-78)
[2020-12-24] MEDS: 0.9 % Sodium Chloride Flush 3 ML SYRINGE IVFLUSH (20:42)
[2020-12-25] VITALS (7 sets, daily range): BP systolic 131–163; BP diastolic 62–96; PULSE 91–102; RESP 18–20; TEMP 36.1–37.2; O2SAT 95–97
[2020-12-25] MEDS: Lactated Ringers 1,000 ML 150 ML IVCONT ×3 (00:53→12:53)
[2020-12-25] MEDS: Metoprolol Tartrate 50 MG TABLET PO ×2 (07:52→20:18)
[2020-12-25] MEDS: PHENobarbitaL 15 MG TABLET 45 MG PO (07:52)
[2020-12-25] MEDS: Thiamine HCL 200 MG/2 ML VIAL 100 MG IM (07:53)
[2020-12-25] MEDS: 0.9 % Sodium Chloride Flush 3 ML SYRINGE IVFLUSH ×2 (08:07→16:38)
[2020-12-25] MEDS: Heparin Sodium,Porcine 5,000 UNIT/ML VIAL 5000 UNIT SUBCUT (11:46)
--- NOTE | 2020-12-25 12:07 | HO.PM.IMPN ---
Subjective Subjective Date of Service: 12/25/20 Interval History: Seen in f/u for alcohol withdrawal and seizure. He is very weak, he is still tremulous and has stool incontinence Review of Systems Gen: no fever Resp: no sob, no cough CV: no chest, no JUAREZ, no leg edema GI: No n/v, no abd pain Neuro: No confusion, weak Physical Exam Vital Signs: Vital Signs: Last Vital Signs Temp 98.1 F 12/25/20 11:42 Pulse 91 12/25/20 11:42 Resp 20 12/25/20 11:42 BP 132/84 12/25/20 11:42 Pulse Ox 97 12/25/20 11:42 Body Mass Index 24.9 Const: General: cooperative Orientation/consciousness: patient oriented x3 Resp: Effort & Inspection: normal respiratory effort and able to speak in complete sentences Cardio: Rate: regular rate Heart sounds: S1 normal heart sound present and S2 normal heart sound present Skin: General skin exam: no rashes or lesions noted Neuro: Other: fine tremors in hand General: patient oriented x3 Psych: Appearance: grossly normal Objective Data Current Medications Generic Name Dose Route Start Last Admin Trade Name Freq PRN Reason Stop Dose Admin Folic Acid 1 mg 12/26/20 09:00 Folic Acid 1 Mg Tablet PO 12/28/20 09:01 DAILY [facility] Heparin Sodium (Porcine) 5,000 unit 12/23/20 12:15 12/25/20 11:46 Heparin Sodium,Porcine 5,000 Unit/Ml Vial SUBCUT 5,000 unit Q12H MARQUISE Administration Lactated Ringer's 1,000 mls @ 150 mls/hr 12/23/20 12:15 12/25/20 06:43 Lr IVCONT 150 mls/hr .Q6H40M [facility]QUISE Administration Metoprolol Tartrate 50 mg 12/23/20 21:00 12/25/20 07:52 Metoprolol Tartrate 50 Mg Tablet PO 50 mg BID MARQUISE Administration Protocol Ondansetron HCl 4 mg 12/23/20 12:14 Ondansetron Hcl 4 Mg/2 Ml Vial IVPUSH Q8H PRN Nausea and Vomiting Pharmacy Consult 1 each 12/23/20 06:34 Consult Rx Perform Med Rec MISCELLANE ONCE PRN Consult order Phenobarbital 15 mg 12/25/20 21:00 Phenobarbital 15 Mg Tablet PO 12/27/20 09:01 BID [facility] Protocol Phenobarbital 15 mg 12/28/20 09:00 Phenobarbital 15 Mg Tablet PO 12/29/20 09:01 DAILY [facility] Protocol Sodium Chloride 3 ml 12/23/20 16:00 12/25/20 08:07 0.9 % Sodium Chloride Flush 3 Ml Syringe IVFLUSH 3 ml QSHIFT [facility] Administration Thiamine HCl 100 mg 12/26/20 09:00 Thiamine Hcl 100 Mg Tablet PO 12/28/20 09:01 DAILY [facility] Labs CBC & Chem 7: 12/24/20 06:29 12/24/20 06:29 Assessment and Plan (1) Alcohol withdrawal seizure: Status: Acute (2) Elevated liver function tests: Status: Acute (3) Pancreatitis: Status: Acute Assessment and Plan: 60-year-old man admitted with alcohol withdrawal seizure, found to have multiple other electrolyte abnormalities in pancreatitis. Incidental lung mass found on x-ray. next Alcohol withdrawal seizure. 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 Related to heavy alcohol use. Continue IV fluid hydration. GI consult. -Advace diet as ole Transaminitis. Alcohol abuse, hepatic steatosis. GI to follow. Check LFTs tomorrow, IV fluids. -Daily labs, INR Hypomagnesemia. Related to alcohol use, dehydration, poor appetite. Repleted, and now normal Hyponatremia. Related to alcohol use. Follow BMP. Incidental lung mass. Chest CT shows Emphysema. Biapical pleural parenchymal scarring. Interval increase in size in bilateral biapical partially calcified parenchymal densities, right larger than left. PET/CT or chest CT follow-up recommended. Increased peripheral or subpleural attenuation in the right lower lobe, question representing dependent atelectasis versus small infiltrate. Diffuse wall thickening of the esophagus suggestive of esophagitis. Fatty liver. Thickening of the left anterior pararenal and lateral conal fascia. This is a nonspecific finding but most commonly seen with pancreatitis. -Further management as outpatient Hypertension. Continue metoprolol. Hypokalemia--oral supplement DVT prophylaxis with heparin PT eval before discharge
--- NOTE | 2020-12-25 13:31 | P.CNNE_ITS ---
History of Present Illness Data of Consult Service Date: 12/25/20 Primary Care Provider: None Physician 60 years old man local abuse who was brought to hospital after apparently either he had a seizure passed out. He said that he had fallen few times and he was in hospital because of his . He did not have any recollection of what exactly had happened. Review of Systems Review of Systems: Recent dizziness and falling. [facility] Past Medical History Medical History (Updated 12/23/20 @ 07:40 by Elisa Dorsey DO) Alcohol abuse DTs (delirium tremens) Hypertension Surgical History Surgical History Hx of colonoscopy No pertinent past surgical history Social History Social History (Updated 12/23/20 @ 19:31 by Karen Roth MD) Household Members: Spouse Housing: House Do you presently have visiting nurse or other home services: No Smoking Status: Never smoker Second Hand Smoke Exposure: No Use of substances other than those prescribed or required for medical reasons: No Currently Displaying Signs/Symptoms of Drug Intoxication Withdrawal: No Have you been hit, kicked, punched, or otherwise hurt by someone within the past year? If so, by whom?: No Do you feel safe in your current relationship?: Yes Is there a partner from a previous relationship who is making you feel unsafe now?: No Are you made to feel afraid or neglected: No Advance Directives: No Do you have thoughts of harming others: None Do you have a plan to hurt others: No Plan Recently lost weight without trying: No service: Yes Current occupational status: unemployed Meds Allergies Allergy/AdvReac Type Severity Reaction Status Date / Time No Known Allergies Allergy Verified 12/01/20 14:15 Home Medications Medication Instructions Recorded Confirmed Type metoprolol tartrate 50 mg PO BID 12/23/20 12/23/20 History Physical Exam Vital Signs: Vital Signs: Last Vital Signs Temp 98.1 F 12/25/20 11:42 Pulse 91 12/25/20 11:42 Resp 20 12/25/20 11:42 BP 132/84 12/25/20 11:42 Pulse Ox 97 12/25/20 11:42 Body Mass Index 24.9 He was alert awake with normal spontaneity of speech fluency comprehension and affect. [id number] testing was moderately abnormal with ataxia. Deep tendon reflexes are absent with flexor plantars. Results Labs CBC & Chem 7: 12/24/20 06:29 12/24/20 06:29 Labs: Cardiac Enzymes 12/24/20 Range/Units 06:29 Total Creatine Kinase 215 H D (38-174) U/L Liver Function 12/24/20 Range/Units 06:29 GGT 1874 H (11-51) U/L head CT without contrast revealed moderately severe diffuse cerebellar and miles cerebral atrophy. 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 At this time mainstay of management is avoidance of alcohol and a dressing other issues. Antiepileptic is not needed. Sometimes patients with chronic alcohol abuse can have epilepsy if he would have unprovoked seizures I would consider a medicine like gabapentin 3-600 mg 3 times a day.
[2020-12-25 13:52] LABS: Alanine Aminotransferase 94 U/L (0-40); Albumin Level 3.2 g/dL (3.5-5.0); Alkaline Phosphatase 166 U/L (39-117); Anion Gap 14 (12-20); Aspartate Amino Transferase 202 U/L (5-37); Bilirubin Direct 2.3 mg/dL (0.0-0.5); Bilirubin Total 2.8 mg/dL (0.0-1.0); Carbon Dioxide 29 mmol/L (22-29); Chloride 93 mmol/L (96-108); Magnesium 1.4 mg/dL (1.6-2.6); Potassium 2.8 mmol/L (3.3-5.1); Sodium 133 mmol/L (135-145); Total Protein 6.6 g/dL (6.5-8.0)
[2020-12-25] MEDS: Magnesium Sulfate/D5W 1 GM/100 ML PIGGYBACK IV (20:17)
[2020-12-25] MEDS: PHENobarbitaL 15 MG TABLET PO (20:19)
[2020-12-26] VITALS (7 sets, daily range): BP systolic 119–164; BP diastolic 73–97; PULSE 95–101; RESP 16–20; TEMP 36.3–37.3; O2SAT 97–98
[2020-12-26] MEDS: Heparin Sodium,Porcine 5,000 UNIT/ML VIAL 5000 UNIT SUBCUT ×2 (00:34→13:50)
[2020-12-26] MEDS: 0.9 % Sodium Chloride Flush 3 ML SYRINGE IVFLUSH ×3 (01:41→17:15)
[2020-12-26] MEDS: Lactated Ringers 1,000 ML 150 ML IVCONT (06:11)
[2020-12-26] MEDS: Potassium Chloride Packet 20 MEQ PACKET 40 MEQ PO ×2 (08:37→17:14)
[2020-12-26] MEDS: Folic Acid 1 MG TABLET PO (08:38)
[2020-12-26] MEDS: Metoprolol Tartrate 50 MG TABLET PO ×2 (08:38→20:05)
[2020-12-26] MEDS: Thiamine HCL 100 MG TABLET PO (08:38)
[2020-12-26] MEDS: PHENobarbitaL 15 MG TABLET PO ×2 (08:39→20:05)
[2020-12-26] MEDS: Magnesium Sulfate/H2O 2 GM/50 ML PIGGYBACK IV (08:55)
[2020-12-26 12:19] LABS: Magnesium 2.4 mg/dL (1.6-2.6)
[2020-12-26 12:50] LABS: Potassium 3.2 mmol/L (3.3-5.1)
--- NOTE | 2020-12-26 13:39 | MHC.CM.PN ---
DP Is to return home with resource information provided by the Care Team. His will provide transportation. CM will follow.
--- NOTE | 2020-12-26 15:35 | HO.PM.IMPN ---
Subjective Subjective Date of Service: 12/26/20 Interval History: Seen in f/u for alcohol withdrawal and seizure. He feels better today, Mag and potassium low Review of Systems Gen: no fever Resp: no sob, no cough CV: no chest, no JUAREZ, no leg edema GI: No n/v, no abd pain Neuro: No confusion, weak Physical Exam Vital Signs: Vital Signs: Last Vital Signs Temp 98.3 F 12/26/20 15:17 Pulse 98 12/26/20 15:17 Resp 20 12/26/20 15:17 BP 136/94 H 12/26/20 15:17 Pulse Ox 97 12/26/20 15:17 Body Mass Index 24.9 Const: General: cooperative Orientation/consciousness: patient oriented x3 Resp: Effort & Inspection: normal respiratory effort and able to speak in complete sentences Cardio: Rate: regular rate Heart sounds: S1 normal heart sound present and S2 normal heart sound present Skin: General skin exam: no rashes or lesions noted Neuro: Other: fine tremors in hand General: patient oriented x3 Psych: Appearance: grossly normal Objective Data Current Medications Generic Name Dose Route Start Last Admin Trade Name Gentryq PRN Reason Stop Dose Admin Folic Acid 1 mg 12/26/20 09:00 12/26/20 08:38 Folic Acid 1 Mg Tablet PO 12/28/20 09:01 1 mg DAILY [facility]QUISE Administration Heparin Sodium (Porcine) 5,000 unit 12/23/20 12:15 12/26/20 13:50 Heparin Sodium,Porcine 5,000 Unit/Ml Vial SUBCUT 5,000 unit Q12H MARQUISE Administration Metoprolol Tartrate 50 mg 12/23/20 21:00 12/26/20 08:38 Metoprolol Tartrate 50 Mg Tablet PO 50 mg BID MARQUISE Administration Protocol Ondansetron HCl 4 mg 12/23/20 12:14 Ondansetron Hcl 4 Mg/2 Ml Vial IVPUSH Q8H PRN Nausea and Vomiting Pharmacy Consult 1 each 12/23/20 06:34 Consult Rx Perform Med Rec MISCELLANE ONCE PRN Consult order Phenobarbital 15 mg 12/25/20 21:00 12/26/20 08:39 Phenobarbital 15 Mg Tablet PO 12/27/20 09:01 15 mg BID MARQUISE Administration Protocol Phenobarbital 15 mg 12/28/20 09:00 Phenobarbital 15 Mg Tablet PO 12/29/20 09:01 DAILY [facility] Protocol Potassium Chloride 40 meq 12/26/20 08:00 12/26/20 08:37 Potassium Chloride Packet 20 Meq Packet PO 40 meq Q8H MARQUISE Administration Sodium Chloride 3 ml 12/23/20 16:00 12/26/20 09:43 0.9 % Sodium Chloride Flush 3 Ml Syringe IVFLUSH 3 ml QSHIFT [facility]QUISE Administration Thiamine HCl 100 mg 12/26/20 09:00 12/26/20 08:38 Thiamine Hcl 100 Mg Tablet PO 12/28/20 09:01 100 mg DAILY MARQUISE Administration Labs CBC & Chem 7: 12/24/20 06:29 12/26/20 11:32 Assessment and Plan (1) Alcohol withdrawal seizure: Status: Acute (2) Elevated liver function tests: Status: Acute (3) Pancreatitis: Status: Acute Assessment and Plan: 60-year-old man admitted with alcohol withdrawal seizure, found to have multiple other electrolyte abnormalities in pancreatitis. Incidental lung mass found on x-ray. next Alcohol withdrawal seizure. 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 Related to heavy alcohol use. Clinically better. DC IVF. Advance diet Transaminitis. Alcohol abuse, hepatic steatosis. GI to follow. Check LFTs tomorrow -Daily labs, INR Hypomagnesemia. Related to alcohol use, dehydration, poor appetite. Repleted, and now normal HypOkalemia--replacing with PO K, 3.2 now Hyponatremia. Related to alcohol use. Follow BMP. Incidental lung mass. Chest CT shows Emphysema. Biapical pleural parenchymal scarring. Interval increase in size in bilateral biapical partially calcified parenchymal densities, right larger than left. PET/CT or chest CT follow-up recommended. Increased peripheral or subpleural attenuation in the right lower lobe, question representing dependent atelectasis versus small infiltrate. Diffuse wall thickening of the esophagus suggestive of esophagitis. Fatty liver. Thickening of the left anterior pararenal and lateral conal fascia. This is a nonspecific finding but most commonly seen with pancreatitis. -Further management as outpatient Hypertension. Continue metoprolol. DVT prophylaxis with heparin PT eval before discharge
[2020-12-26 16:51] LABS: Anion Gap 13 (12-20); Blood Urea Nitrogen 5 mg/dL (9-16); Carbon Dioxide 28 mmol/L (22-29); Chloride 96 mmol/L (96-108); Creatinine Clr Calc Pharmacy 143.7; Estimated Glomerular Filt Rate > 60; Glucose Random 99 mg/dL (60-115); Potassium 2.9 mmol/L (3.3-5.1); Sodium 134 mmol/L (135-145)
[2020-12-26 17:02] LABS: Lipase 474 U/L (8-78)
[2020-12-27] VITALS (11 sets, daily range): BP systolic 119–163; BP diastolic 77–106; PULSE 86–100; RESP 14–20; TEMP 36–37.4; O2SAT 96–100
[2020-12-27] MEDS: Heparin Sodium,Porcine 5,000 UNIT/ML VIAL 5000 UNIT SUBCUT ×2 (00:04→11:22)
[2020-12-27] MEDS: 0.9 % Sodium Chloride Flush 3 ML SYRINGE IVFLUSH ×4 (00:04→20:23)
[2020-12-27 06:52] LABS: Prothrombin Time 11.7 SEC (10.8-13.0)
[2020-12-27 07:22] LABS: Alanine Aminotransferase 56 U/L (0-40); Albumin Level 2.8 g/dL (3.5-5.0); Alkaline Phosphatase 136 U/L (39-117); Aspartate Amino Transferase 72 U/L (5-37); Bilirubin Direct 1.3 mg/dL (0.0-0.5); Bilirubin Total 1.7 mg/dL (0.0-1.0); Total Protein 5.8 g/dL (6.5-8.0)
[2020-12-27] MEDS: Thiamine HCL 100 MG TABLET PO (08:03)
[2020-12-27] MEDS: PHENobarbitaL 15 MG TABLET PO (08:03)
[2020-12-27] MEDS: Folic Acid 1 MG TABLET PO (08:03)
[2020-12-27] MEDS: Metoprolol Tartrate 50 MG TABLET PO ×2 (08:03→20:23)
--- NOTE | 2020-12-27 10:34 | HO.PM.IMPN ---
Subjective Subjective Date of Service: 12/27/20 Interval History: Seen in f/u for alcohol withdrawal and seizure electrolyte abnormalities and weakness. Weakness is better, less tremulous, still incontinent of stool Review of Systems Gen: no fever Resp: no sob, no cough CV: no chest, no JUAREZ, no leg edema GI: No n/v, no abd pain Neuro: No confusion, weak Physical Exam Vital Signs: Vital Signs: Last Vital Signs Temp 97.0 F 12/27/20 08:25 Pulse 91 12/27/20 08:25 Resp 20 12/27/20 08:25 BP 163/106 H 12/27/20 08:25 Pulse Ox 98 12/27/20 07:13 Body Mass Index 24.9 Const: General: cooperative Orientation/consciousness: patient oriented x3 Resp: Effort & Inspection: normal respiratory effort and able to speak in complete sentences Cardio: Rate: regular rate Heart sounds: S1 normal heart sound present and S2 normal heart sound present Skin: General skin exam: no rashes or lesions noted Neuro: Other: fine tremors in hand better General: patient oriented x3 Psych: Appearance: grossly normal Objective Data Current Medications Generic Name Dose Route Start Last Admin Trade Name Freq PRN Reason Stop Dose Admin Folic Acid 1 mg 12/26/20 09:00 12/27/20 08:03 Folic Acid 1 Mg Tablet PO 12/28/20 09:01 1 mg DAILY MARQUISE Administration Heparin Sodium (Porcine) 5,000 unit 12/23/20 12:15 12/27/20 00:04 Heparin Sodium,Porcine 5,000 Unit/Ml Vial SUBCUT 5,000 unit Q12H MARQUISE Administration Metoprolol Tartrate 50 mg 12/23/20 21:00 12/27/20 08:03 Metoprolol Tartrate 50 Mg Tablet PO 50 mg BID MARQUISE Administration Protocol Ondansetron HCl 4 mg 12/23/20 12:14 Ondansetron Hcl 4 Mg/2 Ml Vial IVPUSH Q8H PRN Nausea and Vomiting Pharmacy Consult 1 each 12/23/20 06:34 Consult Rx Perform Med Rec MISCELLANE ONCE PRN Consult order Phenobarbital 15 mg 12/28/20 09:00 Phenobarbital 15 Mg Tablet PO 12/29/20 09:01 DAILY [facility] Protocol Sodium Chloride 3 ml 12/23/20 16:00 12/27/20 08:03 0.9 % Sodium Chloride Flush 3 Ml Syringe IVFLUSH 3 ml QSHIFT [facility]QUISE Administration Thiamine HCl 100 mg 12/26/20 09:00 12/27/20 08:03 Thiamine Hcl 100 Mg Tablet PO 12/28/20 09:01 100 mg DAILY MARQUISE Administration Labs CBC & Chem 7: 12/24/20 06:29 12/26/20 15:57 Assessment and Plan (1) Alcohol withdrawal seizure: Status: Acute (2) Elevated liver function tests: Status: Acute (3) Pancreatitis: Status: Acute Assessment and Plan: 60-year-old man admitted with alcohol withdrawal seizure, found to have multiple other electrolyte abnormalities in pancreatitis. Incidental lung mass found on x-ray. next Alcohol withdrawal seizure. 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 Related to heavy alcohol use. Lipase is down, no pain, advance diet Transaminitis. Alcohol abuse, hepatic steatosis. GI to follow. Check LFTs tomorrow -Daily labs, INR Hypomagnesemia. Related to alcohol use, dehydration, poor appetite. Repleted, and now normal HypOkalemia--replacing with PO K, recheck labs and replace as needed Hyponatremia. Related to alcohol use. Follow BMP. Incidental lung mass. Chest CT shows Emphysema. Biapical pleural parenchymal scarring. Interval increase in size in bilateral biapical partially calcified parenchymal densities, right larger than left. PET/CT or chest CT follow-up recommended. Increased peripheral or subpleural attenuation in the right lower lobe, question representing dependent atelectasis versus small infiltrate. Diffuse wall thickening of the esophagus suggestive of esophagitis. Fatty liver. Thickening of the left anterior pararenal and lateral conal fascia. This is a nonspecific finding but most commonly seen with pancreatitis. -Further management as outpatient Hypertension. Continue metoprolol. DVT prophylaxis with heparin PT eval before discharge
[2020-12-27 10:54] LABS: Magnesium 2.1 mg/dL (1.6-2.6)
[2020-12-27] MEDS: Gabapentin 300 MG CAPSULE PO ×3 (11:22→20:23)
[2020-12-27 15:24] LABS: Anion Gap 10 (12-20); Calcium 7.7 mg/dL (8.4-10.2); Carbon Dioxide 29 mmol/L (22-29); Chloride 96 mmol/L (96-108); Creatinine Clr Calc Pharmacy 123.8; Estimated Glomerular Filt Rate > 60; Glucose Random 120 mg/dL (60-115); Potassium 3.2 mmol/L (3.3-5.1); Sodium 132 mmol/L (135-145)
[2020-12-27 15:48] LABS: Blood Urea Nitrogen 8 mg/dL (9-16)
[2020-12-27] MEDS: Potassium Chloride Packet 20 MEQ PACKET 40 MEQ PO (18:46)
[2020-12-27 18:58] LABS: Magnesium 1.8 mg/dL (1.6-2.6)
[2020-12-28] VITALS (7 sets, daily range): BP systolic 118–159; BP diastolic 77–94; PULSE 88–100; RESP 16–20; TEMP 36–37.2; O2SAT 97–100
[2020-12-28] MEDS: Heparin Sodium,Porcine 5,000 UNIT/ML VIAL 5000 UNIT SUBCUT ×3 (00:30→23:18)
[2020-12-28 07:34] LABS: Alanine Aminotransferase 46 U/L (0-40); Albumin Level 2.7 g/dL (3.5-5.0); Alkaline Phosphatase 144 U/L (39-117); Anion Gap 11 (12-20); Aspartate Amino Transferase 53 U/L (5-37); Bilirubin Direct 1.1 mg/dL (0.0-0.5); Bilirubin Total 1.4 mg/dL (0.0-1.0); Blood Urea Nitrogen 8 mg/dL (9-16); Calcium 7.5 mg/dL (8.4-10.2); Carbon Dioxide 27 mmol/L (22-29); Chloride 99 mmol/L (96-108); Creatinine Clr Calc Pharmacy 134.1; Estimated Glomerular Filt Rate > 60; Glucose Random 97 mg/dL (60-115); Potassium 3.4 mmol/L (3.3-5.1); Sodium 134 mmol/L (135-145); Total Protein 5.9 g/dL (6.5-8.0)
[2020-12-28 07:46] LABS: Magnesium 1.8 mg/dL (1.6-2.6)
[2020-12-28 07:58] LABS: Lipase 373 U/L (8-78)
[2020-12-28] MEDS: Metoprolol Tartrate 50 MG TABLET PO ×2 (07:58→19:57)
[2020-12-28] MEDS: 0.9 % Sodium Chloride Flush 3 ML SYRINGE IVFLUSH ×3 (07:58→23:20)
[2020-12-28] MEDS: PHENobarbitaL 15 MG TABLET PO (07:59)
[2020-12-28] MEDS: Folic Acid 1 MG TABLET PO (07:59)
[2020-12-28] MEDS: Gabapentin 300 MG CAPSULE PO ×3 (07:59→19:57)
[2020-12-28] MEDS: Thiamine HCL 100 MG TABLET PO (07:59)
--- NOTE | 2020-12-28 11:27 | P.PNIM_ITS ---
Subjective Subjective Date of Service: 12/28/20 Interval History: Seen in f/u for alcohol withdrawal and seizure electrolyte abnormalities and weakness. He continued to make progress. He is less tremulous today. And overall feels stronger. Review of Systems Gen: no fever Resp: no sob, no cough CV: no chest, no JUAREZ, no leg edema GI: No n/v, no abd pain Neuro: No confusion, weakness is better. Physical Exam Vital Signs: Vital Signs: Last Vital Signs Temp 98.9 F 12/28/20 07:47 Pulse 92 12/28/20 07:58 Resp 17 12/28/20 07:47 BP 159/94 H 12/28/20 07:58 Pulse Ox 97 12/28/20 07:47 Body Mass Index 24.9 Const: General: cooperative Orientation/consciousness: patient oriented x3 Resp: Effort & Inspection: normal respiratory effort and able to speak in complete sentences Cardio: Rate: regular rate Heart sounds: S1 normal heart sound present and S2 normal heart sound present Skin: General skin exam: no rashes or lesions noted Neuro: Other: fine tremors in hand better General: patient oriented x3 Psych: Appearance: grossly normal Objective Data Current Medications Generic Name Dose Route Start Last Admin Trade Name Freq PRN Reason Stop Dose Admin Gabapentin 300 mg 12/27/20 10:45 12/28/20 07:59 Gabapentin 300 Mg Capsule PO 300 mg TID [facility] Administration Heparin Sodium (Porcine) 5,000 unit 12/23/20 12:15 12/28/20 00:30 Heparin Sodium,Porcine 5,000 Unit/Ml Vial SUBCUT 5,000 unit Q12H [facility] Administration Metoprolol Tartrate 50 mg 12/23/20 21:00 12/28/20 07:58 Metoprolol Tartrate 50 Mg Tablet PO 50 mg BID [facility] Administration Protocol Ondansetron HCl 4 mg 12/23/20 12:14 Ondansetron Hcl 4 Mg/2 Ml Vial IVPUSH Q8H PRN Nausea and Vomiting Pharmacy Consult 1 each 12/23/20 06:34 Consult Rx Perform Med Rec MISCELLANE ONCE PRN Consult order Phenobarbital 15 mg 12/28/20 09:00 12/28/20 07:59 Phenobarbital 15 Mg Tablet PO 12/29/20 09:01 15 mg DAILY [facility] Administration Protocol Sodium Chloride 3 ml 12/23/20 16:00 12/28/20 07:58 0.9 % Sodium Chloride Flush 3 Ml Syringe IVFLUSH 3 ml QSHIFT [facility] Administration Labs CBC & Chem 7: 12/24/20 06:29 12/28/20 06:33 Assessment and Plan (1) Alcohol withdrawal seizure: Status: Acute (2) Elevated liver function tests: Status: Acute (3) Pancreatitis: Status: Acute Assessment and Plan: 60-year-old man admitted with alcohol withdrawal seizure, found to have multiple other electrolyte abnormalities in pancreatitis. Incidental lung mass found on x-ray. next Alcohol withdrawal seizure. 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 Related to heavy alcohol use. Lipase is down, no pain, advance diet Transaminitis. Alcohol abuse, hepatic steatosis. GI to follow. Check LFTs tomorrow -Daily labs, INR Hypomagnesemia. Related to alcohol use, dehydration, poor appetite. Repleted, and now normal HypOkalemia--replacing with PO K, recheck labs and replace as needed, potassium is 3.4 today. Hyponatremia. Related to alcohol use. Follow BMP. Incidental lung mass. Chest CT shows Emphysema. Biapical pleural parenchymal scarring. Interval increase in size in bilateral biapical partially calcified parenchymal densities, right larger than left. PET/CT or chest CT follow-up recommended. Increased peripheral or subpleural attenuation in the right lower lobe, question representing dependent atelectasis versus small infiltrate. Diffuse wall thickening of the esophagus suggestive of esophagitis. Fatty liver. Thickening of the left anterior pararenal and lateral conal fascia. This is a nonspecific finding but most commonly seen with pancreatitis. -Further management as outpatient Hypertension. Continue metoprolol. DVT prophylaxis with heparin PT eval before discharge
[2020-12-29] VITALS (8 sets, daily range): BP systolic 121–146; BP diastolic 67–93; PULSE 83–99; RESP 15–20; TEMP 36.7–37.3; O2SAT 97–99
--- NOTE | 2020-12-29 | EEG_ITS ---
This is a 16-channel EEG with an EKG lead. The patient is reported awake during the tracing. Background EEG rhythm is normal. Alpha, beta with no obvious asymmetry or paroxysmal tendency. Photic stimulation does not produce any significant driving. Hyperventilation is not performed. No sharp wave spikes or paroxysmal tendencies noted. IMPRESSION: Unremarkable EEG. MD FREDRICK Looney/KATHRIN / [id number]
[2020-12-29 06:48] LABS: Alanine Aminotransferase 37 U/L (0-40); Albumin Level 2.7 g/dL (3.5-5.0); Alkaline Phosphatase 140 U/L (39-117); Anion Gap 11 (12-20); Aspartate Amino Transferase 42 U/L (5-37); Bilirubin Direct 0.9 mg/dL (0.0-0.5); Bilirubin Total 1.1 mg/dL (0.0-1.0); Blood Urea Nitrogen 7 mg/dL (9-16); Calcium 7.6 mg/dL (8.4-10.2); Carbon Dioxide 28 mmol/L (22-29); Chloride 101 mmol/L (96-108); Creatinine Clr Calc Pharmacy 134.1; Estimated Glomerular Filt Rate > 60; Glucose Random 104 mg/dL (60-115); Magnesium 1.7 mg/dL (1.6-2.6); Potassium 3.3 mmol/L (3.3-5.1); Sodium 137 mmol/L (135-145); Total Protein 5.9 g/dL (6.5-8.0)
--- NOTE | 2020-12-29 08:25 | MHC.CM.PN ---
at this pt dc plan is home no svcs p care team informational. to transport. cm to cont. to follow.
[2020-12-29] MEDS: Metoprolol Tartrate 50 MG TABLET PO ×2 (10:01→20:52)
[2020-12-29] MEDS: PHENobarbitaL 15 MG TABLET PO (10:01)
[2020-12-29] MEDS: Gabapentin 300 MG CAPSULE PO ×3 (10:01→20:52)
[2020-12-29] MEDS: 0.9 % Sodium Chloride Flush 3 ML SYRINGE IVFLUSH ×2 (10:02→16:03)
--- NOTE | 2020-12-29 10:53 | HO.PM.IMPN ---
Subjective Subjective Date of Service: 12/29/20 <DINORAH Ashby - Last Filed: 12/29/20 19:25> 12/30/20 <Nico Topete MD - Last Filed: 12/30/20 12:01> Interval History: Follow up for etoh withdrawal, seizure, electrolyte abnormalities Reports weakness, ambulating with walker <DINORAH Ashby - Last Filed: 12/29/20 19:25> Review of Systems Review of Systems: Yes all other systems are reviewed and are negative <DINORAH Ashby - Last Filed: 12/29/20 19:25> Constitutional Constitutional: Denies chills and Denies fever(s) <DINORAH Ashby - Last Filed: 12/29/20 19:25> Cardiovascular Cardiovascular: Denies chest pain <DINORAH Ashby Last Filed: 12/29/20 19:25> Respiratory Respiratory: Denies cough <DINORAH Ashby - Last Filed: 12/29/20 19:25> Gastrointestinal Gastrointestinal: Denies abdominal pain <DINORAH Ashby - Last Filed: 12/29/20 19:25> Physical Exam Vital Signs: Vital Signs: Last Vital Signs Temp 98.3 F 12/29/20 07:40 Pulse 91 12/29/20 10:35 Resp 16 12/29/20 07:40 BP 146/93 H 12/29/20 10:35 Pulse Ox 98 12/29/20 10:35 Body Mass Index 24.9 <DINORAH Ashby - Last Filed: 12/29/20 19:25> Const: Nutritional Appearance: well nourished <DINORAH Ashby - Last Filed: 12/29/20 19:25> Orientation/consciousness: patient oriented x3 <DINORAH Ashby Last Filed: 12/29/20 19:25> HENMT: Head: Yes normocephalic and Yes atraumatic <DINORAH Ashby Last Filed: 12/29/20 19:25> Eyes: Sclerae: sclerae normal <DINORAH Ashby Last Filed: 12/29/20 19:25> Chest: Chest palpation & inspection: normal inspection of the chest <DINORAH Ashby - Last Filed: 12/29/20 19:25> Resp: Effort & Inspection: normal respiratory effort and no respiratory distress <DINORAH Ashby Last Filed: 12/29/20 19:25> Cardio: Rate: regular rate <DINORAH Ashby Last Filed: 12/29/20 19:25> Rhythm: regular rhythm <DINORAH Ashby - Last Filed: 12/29/20 19:25> GI: Palpation (GI): Soft to palpation and nontender <DINORAH Ashby Last Filed: 12/29/20 19:25> Skin: General skin exam: no rashes or lesions noted <DINORAH Ashby Last Filed: 12/29/20 19:25> Neuro: General: patient oriented x3 <DINORAH Ashby Last Filed: 12/29/20 19:25> Cranial nerves: Yes CN's II-XII intact bilaterally and Yes Bilaterally intact EOM present <DINORAH Ashby Last Filed: 12/29/20 19:25> Objective Data Current Medications Generic Name Dose Route Start Last Admin Trade Name Gentryq PRN Reason Stop Dose Admin Gabapentin 300 mg 12/27/20 10:45 12/29/20 10:01 Gabapentin 300 Mg Capsule PO 300 mg TID [facility] Administration Heparin Sodium (Porcine) 5,000 unit 12/23/20 12:15 12/28/20 23:18 Heparin Sodium,Porcine 5,000 Unit/Ml Vial SUBCUT 5,000 unit Q12H [facility] Administration Metoprolol Tartrate 50 mg 12/23/20 21:00 12/29/20 10:01 Metoprolol Tartrate 50 Mg Tablet PO 50 mg BID [facility] Administration Protocol Ondansetron HCl 4 mg 12/23/20 12:14 Ondansetron Hcl 4 Mg/2 Ml Vial IVPUSH Q8H PRN Nausea and Vomiting Pharmacy Consult 1 each 12/23/20 06:34 Consult Rx Perform Med Rec MISCELLANE ONCE PRN Consult order Sodium Chloride 3 ml 12/23/20 16:00 12/29/20 10:02 0.9 % Sodium Chloride Flush 3 Ml Syringe IVFLUSH 3 ml QSHIFT [facility] Administration <DINORAH Ashby - Last Filed: 12/29/20 19:25> Labs CBC & Chem 7: : 12/24/20 06:29 12/30/20 05:41 <DINORAH Ashby - Last Filed: 12/29/20 19:25> Assessment and Plan (1) Alcohol withdrawal seizure: Status: Acute <DINORAH Ashby - Last Filed: 12/29/20 19:25> (2) Alcohol withdrawal: Status: Acute <DINORAH Ashby - Last Filed: 12/29/20 19:25> (3) Elevated liver function tests: Status: Acute <DINORAH Ashby - Last Filed: 12/29/20 19:25> (4) Pancreatitis: Status: Acute <DINORAH Ashby - Last Filed: 12/29/20 19:25> Assessment and Plan: 60-year-old man admitted with alcohol withdrawal seizure, found to have multiple other electrolyte abnormalities as well as pancreatitis. Incidental lung mass found on x-ray. Alcohol withdrawal seizure. 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 Supplemented with thiamine and folate. Counseled on importance of sobriety -CARE team eval prior to discharge Seizure Thought to be related to alcohol withdrawal. No further seizure activity. -gabapentin started per neuro recommendation at 300 tid. Should follow up with neurology as outpatient. -Avoid driving until cleared by neurology Pancreatitis. Related to heavy alcohol use. Lipase trending down, pain resolved, tolerating regular diet. Transaminitis. Related to Alcohol abuse, hepatic steatosis. Evaluated by GI who recommended following LFTs -LFTs continue to trend down Hypomagnesemia. Related to alcohol use, dehydration, poor appetite. Repleted, and now normal HypOkalemia--has been replaced with PO K, potassium is 3.3 today. Hyponatremia. Related to alcohol use. Resolved. Incidental lung mass seen on imagin: Chest CT shows Emphysema. Biapical pleural parenchymal scarring. Interval increase in size in bilateral biapical partially calcified parenchymal densities, right larger than left. PET/CT or chest CT follow-up recommended. Increased peripheral or subpleural attenuation in the right lower lobe, question representing dependent atelectasis versus small infiltrate. Diffuse wall thickening of the esophagus suggestive of esophagitis. Fatty liver. Thickening of the left anterior pararenal and lateral conal fascia. This is a nonspecific finding but most commonly seen with pancreatitis. -Recommend outpatient followup Hypertension. Continued on home dose of metoprolol. DVT prophylaxis with heparin PT eval pending for safe disposition This case was discussed with Dr. Topete <DINORAH Ashby - Last Filed: 12/29/20 19:25>
--- NOTE | 2020-12-29 11:31 | MHC.RECOVSUP ---
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 Patient reports no questions at this time and states he is feeling good and that he feels positive about his recovery going forward. Patient denies cravings at this time and does not anticipate any barriers to his recovery. Reviewed resources previously provided and encouraged patient to utilize them. Patient has contact info for the Recovery Support Team at [facility] in the event that he has questions after discharge or if he is interested in additional resources. Discussed case with patient's RN
[2020-12-30] VITALS (7 sets, daily range): BP systolic 136–155; BP diastolic 90–97; PULSE 82–99; RESP 18–20; TEMP 36.3–37.1; O2SAT 98–100
[2020-12-30] MEDS: 0.9 % Sodium Chloride Flush 3 ML SYRINGE IVFLUSH ×3 (03:14→16:02)
[2020-12-30 06:20] LABS: Alanine Aminotransferase 36 U/L (0-40); Albumin Level 2.9 g/dL (3.5-5.0); Alkaline Phosphatase 156 U/L (39-117); Anion Gap 10 (12-20); Aspartate Amino Transferase 43 U/L (5-37); Bilirubin Direct 0.9 mg/dL (0.0-0.5); Bilirubin Total 1.1 mg/dL (0.0-1.0); Blood Urea Nitrogen 7 mg/dL (9-16); Calcium 7.9 mg/dL (8.4-10.2); Carbon Dioxide 31 mmol/L (22-29); Chloride 99 mmol/L (96-108); Creatinine Clr Calc Pharmacy 118.4; Estimated Glomerular Filt Rate > 60; Glucose Random 106 mg/dL (60-115); Potassium 3.6 mmol/L (3.3-5.1); Sodium 136 mmol/L (135-145); Total Protein 6.4 g/dL (6.5-8.0)
[2020-12-30 06:24] LABS: Magnesium 1.6 mg/dL (1.6-2.6)
[2020-12-30] MEDS: Metoprolol Tartrate 50 MG TABLET PO ×2 (09:42→20:31)
[2020-12-30] MEDS: Gabapentin 300 MG CAPSULE PO ×3 (09:42→20:32)
--- NOTE | 2020-12-30 12:27 | P.PNIM_ITS ---
Subjective Subjective Date of Service: 12/30/20 Interval History: Seen in f/u for alcohol withdrawal and seizure electrolyte abnormalities and weakness. He continued to make progress. He is less tremulous today. And overall feels stronger and more steady Review of Systems Gen: no fever Resp: no sob, no cough CV: no chest, no JUAREZ, no leg edema GI: No n/v, no abd pain Neuro: No confusion, weakness is better. Physical Exam Vital Signs: Vital Signs: Last Vital Signs Temp 97.8 F 12/30/20 12:00 Pulse 82 12/30/20 12:00 Resp 18 12/30/20 12:00 BP 136/90 H 12/30/20 12:00 Pulse Ox 99 12/30/20 12:00 Body Mass Index 24.9 Const: General: cooperative Chest: Chest palpation & inspection: normal inspection of the chest Resp: Effort & Inspection: normal respiratory effort and able to speak in complete sentences Cardio: Rate: regular rate Heart sounds: S1 normal heart sound present and S2 normal heart sound present Skin: General skin exam: no rashes or lesions noted Neuro: Other: fine tremors in hand better much better Psych: Appearance: grossly normal Objective Data Current Medications Generic Name Dose Route Start Last Admin Trade Name Freq PRN Reason Stop Dose Admin Gabapentin 300 mg 12/27/20 10:45 12/30/20 09:42 Gabapentin 300 Mg Capsule PO 300 mg TID [facility] Administration Heparin Sodium (Porcine) 5,000 unit 12/23/20 12:15 12/30/20 02:19 Heparin Sodium,Porcine 5,000 Unit/Ml Vial SUBCUT Not Given Q12H [facility] Metoprolol Tartrate 50 mg 12/23/20 21:00 12/30/20 09:42 Metoprolol Tartrate 50 Mg Tablet PO 50 mg BID [facility] Administration Protocol Ondansetron HCl 4 mg 12/23/20 12:14 Ondansetron Hcl 4 Mg/2 Ml Vial IVPUSH Q8H PRN Nausea and Vomiting Pharmacy Consult 1 each 12/23/20 06:34 Consult Rx Perform Med Rec MISCELLANE ONCE PRN Consult order Sodium Chloride 3 ml 12/23/20 16:00 12/30/20 09:42 0.9 % Sodium Chloride Flush 3 Ml Syringe IVFLUSH 3 ml QSHIFT [facility] Administration Labs CBC & Chem 7: 12/24/20 06:29 12/30/20 05:41 Assessment and Plan (1) Alcohol withdrawal seizure: Status: Acute (2) Alcohol withdrawal: Status: Acute (3) Elevated liver function tests: Status: Acute (4) Pancreatitis: Status: Acute Assessment and Plan: 60-year-old man admitted with alcohol withdrawal seizure, found to have multiple other electrolyte abnormalities as well as pancreatitis. Incidental lung mass found on x-ray. Alcohol withdrawal seizure. 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 Supplemented with thiamine and folate. Counseled on importance of sobriety -CARE team eval prior to discharge Seizure Thought to be related to alcohol withdrawal. No further seizure activity. -gabapentin started per neuro recommendation at 300 tid. Should follow up with neurology as outpatient. -Avoid driving until cleared by neurology, EEG done result pending Pancreatitis. Related to heavy alcohol use. Lipase trending down, pain resolved, tolerating regular diet. Transaminitis. Related to Alcohol abuse, hepatic steatosis. Evaluated by GI who recommended following LFTs -LFTs continue to trend down Hypomagnesemia. Related to alcohol use, dehydration, poor appetite. Repleted, and now normal HypOkalemia--has been replaced with PO K, potassium is 3.3 today. Hyponatremia. Related to alcohol use. Resolved. Incidental lung mass seen on imaging: Chest CT shows Emphysema. Biapical pleural parenchymal scarring. Interval increase in size in bilateral biapical partially calcified parenchymal densities, right larger than left. PET/CT or chest CT follow-up recommended. Increased peripheral or subpleural attenuation in the right lower lobe, question representing dependent atelectasis versus small infiltrate. Diffuse wall thickening of the esophagus suggestive of esophagitis. Fatty liver. Thickening of the left anterior pararenal and lateral conal fascia. This is a nonspecific finding but most commonly seen with pancreatitis. -Recommend outpatient followup -will have pulmonary see him so that he doesn't get lost to follow up Hypertension. Continued on home dose of metoprolol. DVT prophylaxis with heparin PT recommends home, will dc in am
[2020-12-31] VITALS: BP 148/99; PULSE 87; RESP 20; TEMP 36.4; O2SAT 95
[2020-12-31] MEDS: 0.9 % Sodium Chloride Flush 3 ML SYRINGE IVFLUSH ×2 (00:03→09:00)
[2020-12-31 03:34] VITALS: BP 128/69; PULSE 92; RESP 20; TEMP 36.8; O2SAT 98
[2020-12-31 08:00] VITALS: BP 161/107; PULSE 122; RESP 18; TEMP 36.5; O2SAT 98
[2020-12-31] MEDS: Gabapentin 300 MG CAPSULE PO (08:59)
[2020-12-31] MEDS: Metoprolol Tartrate 50 MG TABLET PO (08:59)
--- NOTE | 2020-12-31 11:20 | P.DS_ITS ---
DS: Providers Provider Date of Service: 03/21/21 Date of admission: 12/23/20 12:14 Primary care physician: None Physician Consults: 12/23/20 12:17 Consult to Gastroenterology Routine Consulting Provider: Karen Roth Reason for consultation: pancreatitis, transaminitis Has provider been notified: No 12/24/20 10:55 Consult to Neurology Routine Consulting Provider: [facility] Reason for consultation: seizure 12/29/20 10:01 Consult to Care Team Routine Comment: Reason for consultation: etoh abuse DS: Diagnosis Discharge Diagnosis (1) Alcohol withdrawal seizure: Status: Resolved (2) Alcohol withdrawal: Status: Resolved (3) Elevated liver function tests: (4) Pancreatitis: Status: Resolved DS: Medications Discharge Medications Home Medications: Home Medications Medication Instructions Recorded Confirmed metoprolol tartrate 50 mg PO BID 12/23/20 12/23/20 DS: Summary Hospital Course Hospital Course: Chief Complaint: Seizure 60-year-old man presenting to the ER after having a alcohol withdrawal seizure. 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 He reported that he he became quite sick vomiting multiple times over the last day and a half. He denied any blood in his vomit. Denied any diarrhea. Did report some epigastric abdominal pain that was often on. According to the patient he has no history of seizures past. He denied recent illness, fever, chills. He reports that he had been working up to 6 months ago however denied elaborate what transpired. Abdominal CT in the ER showed pancreatitis and hepatic steatosis. Sodium 131, lactic acid 2.4, magnesium 1.5, bilirubin 4.2, AST 243, ALT 102. vital signs stable though he was tachycardic. In the ER , he was given lorazepam, banana bag, magnesium and started on phenobarbital protocol. Hospital course: Alcohol withdrawal seizure. He stopped drinking 2 days [employer] and had seizure likely due to alcohol withdrawal and was treated with Phenobarbital which could also prevent seizure. He had an EEG which was normal and was seen by Dr. Lanza and recommended Neurontin. He has not had any further seizure and is recommended not to drive for 3 months seizure free or unless cleared by Neurologist on follow up. He was seen by Recovery team while in hospital in given resources on staying sobber Seizure--See above Pancreatitis. Related to heavy alcohol use. Lipase trending down, pain resolved, tolerating regular diet. Transaminitis. Related to Alcohol abuse, hepatic steatosis. Evaluated by GI who recommended and essentially advise to stop drinking Hypomagnesemia. Related to alcohol use, dehydration, poor appetite. Repleted, and now normal HypOkalemia--has been replaced with PO K, potassium corrected Hyponatremia. Related to alcohol use. Resolved. Incidental lung mass seen on imaging: Chest CT shows Emphysema. Biapical pleural parenchymal scarring. Interval increase in size in bilateral biapical partially calcified parenchymal densities, right larger than left. PET/CT or chest CT follow-up recommended. Increased peripheral or subpleural attenuation in the right lower lobe, question representing dependent atelectasis versus small infiltrate. Diffuse wall thickening of the esophagus suggestive of esophagitis. Fatty liver. Thickening of the left anterior pararenal and lateral conal fascia. This is a nonspecific finding but most commonly seen with pancreatitis. -Recommend outpatient followup -To follow up with Pulmonary Hypertension. Continued on home dose of metoprolol. Time Spent with Patient Time attestation: Total time spent providing and/or coordinating discharge services: Discharge coordination time: Greater than 30 minutes Physical Exam Vital Signs: Vital Signs: Last Vital Signs Temp 97.7 F 12/31/20 08:00 Pulse 122 H 12/31/20 08:00 Resp 18 12/31/20 08:00 BP 161/107 H 12/31/20 08:00 Pulse Ox 98 12/31/20 08:00 Body Mass Index 24.9 Const: General: cooperative Orientation/consciousness: patient oriented x3 Chest: Chest palpation & inspection: normal inspection of the chest Resp: Effort & Inspection: normal respiratory effort and able to speak in complete sentences Cardio: Rate: regular rate Heart sounds: S1 normal heart sound present and S2 normal heart sound present Skin: General skin exam: no rashes or lesions noted Neuro: Other: fine tremors in hand better much better General: patient oriented x3 Psych: Appearance: grossly normal DS: Data Data Completed and Pending Labs on day of discharge: Laboratory Tests 12/23/20 12/23/20 12/23/20 05:45 06:27 06:28 WBC 6.2 RBC 3.82 L Hgb 13.0 L Hct 38.8 L MCV 101.6 H MCH 34.0 H MCHC 33.5 RDW 15.9 Plt Count TNP MPV 11.7 Immature Gran % (Auto) 0.3 Neut % (Auto) 87.8 H Lymph % (Auto) 5.1 L [place] % (Auto) 6.6 Eos % (Auto) 0.0 Baso % (Auto) 0.2 Lymph # (Auto) 0.3 L [place] # (Auto) 0.4 Eos # (Auto) 0.0 Baso # (Auto) 0.0 Abs Immat Gran (auto) 0.02 Absolute Neuts (auto) 5.5 Absolute Nucleated RBC 0.020 H Nucleated RBC % (auto) 0.3 H Smear Tech's Comments VERIFIED PT INR APTT VBG pH VBG pCO2 VBG pO2 VBG HCO3 VBG O2 Saturation VBG Base Excess Sodium 131 L Potassium 4.8 Chloride 91 L Carbon Dioxide 15 L Anion Gap 30 H BUN 15 Creatinine 1.06 Estim Creat Clear Calc 75.9 Estimated GFR > 60 Random Glucose 166 H Lactic Acid Lactic Acid Fup @ 2Hr Calcium 7.6 L Magnesium 1.5 L Total Bilirubin 4.2 H Direct Bilirubin GGT AST 243 H ALT 102 H Alkaline Phosphatase 158 H Lactate Dehydrogenase Total Creatine Kinase C-Reactive Protein Total Protein 7.5 Albumin 3.5 Lipase Urine Color Urine Appearance Urine pH Ur Specific [place] Urine Protein Urine Glucose (UA) Urine Ketones Urine Blood Urine Nitrite Ur Leukocyte Esterase Urine RBC Urine WBC Ur Squamous Epith Cells Urine Bacteria Ethyl Alcohol COVID-19 (BRENDAN) Negative COVID-19 Clin Com See Note 12/23/20 12/23/20 12/23/20 06:28 06:28 06:28 WBC RBC Hgb Hct MCV MCH MCHC RDW Plt Count MPV Immature Gran % (Auto) Neut % (Auto) Lymph % (Auto) [place] % (Auto) Eos % (Auto) Baso % (Auto) Lymph # (Auto) [place] # (Auto) Eos # (Auto) Baso # (Auto) Abs Immat Gran (auto) Absolute Neuts (auto) Absolute Nucleated RBC Nucleated RBC % (auto) Smear Tech's Comments PT INR APTT VBG pH VBG pCO2 VBG pO2 VBG HCO3 VBG O2 Saturation VBG Base Excess Sodium Potassium Chloride Carbon Dioxide Anion Gap BUN Creatinine Estim Creat Clear Calc Estimated GFR Random Glucose Lactic Acid Lactic Acid Fup @ 2Hr Calcium Magnesium Total Bilirubin Direct Bilirubin GGT AST ALT Alkaline Phosphatase Lactate Dehydrogenase Total Creatine Kinase 65 C-Reactive Protein Total Protein Albumin Lipase 1415 H Urine Color Urine Appearance Urine pH Ur Specific [place] Urine Protein Urine Glucose (UA) Urine Ketones Urine Blood Urine Nitrite Ur Leukocyte Esterase Urine RBC Urine WBC Ur Squamous Epith Cells Urine Bacteria Ethyl Alcohol < 10 COVID-19 (BRENDAN) COVID-19 Notizza 12/23/20 12/23/20 12/23/20 09:25 10:32 10:37 WBC RBC Hgb Hct MCV MCH MCHC RDW Plt Count MPV Immature Gran % (Auto) Neut % (Auto) Lymph % (Auto) [place] % (Auto) Eos % (Auto) Baso % (Auto) Lymph # (Auto) [place] # (Auto) Eos # (Auto) Baso # (Auto) Abs Immat Gran (auto) Absolute Neuts (auto) Absolute Nucleated RBC Nucleated RBC % (auto) Smear Tech's Comments PT 11.4 INR 1.0 APTT 27.0 VBG pH VBG pCO2 VBG pO2 VBG HCO3 VBG O2 Saturation VBG Base Excess Sodium Potassium Chloride Carbon Dioxide Anion Gap BUN Creatinine Estim Creat Clear Calc Estimated GFR Random Glucose Lactic Acid 2.4 H* Lactic Acid Fup @ 2Hr Calcium Magnesium Total Bilirubin Direct Bilirubin GGT AST ALT Alkaline Phosphatase Lactate Dehydrogenase Total Creatine Kinase C-Reactive Protein Total Protein Albumin Lipase Urine Color YELLOW Urine Appearance CLEAR Urine pH 6.0 Ur Specific [place] 1.015 Urine Protein 1+ H Urine Glucose (UA) NEG Urine Ketones 40 Urine Blood 2+ H Urine Nitrite NEG Ur Leukocyte Esterase NEG Urine RBC 1-4 Urine WBC 0-2 Ur Squamous Epith Cells NONE Urine Bacteria NONE Ethyl Alcohol COVID-19 (BRENDAN) COVID-19 Notizza 12/23/20 12/23/20 12/23/20 10:37 14:32 14:32 WBC RBC Hgb Hct MCV MCH MCHC RDW Plt Count MPV Immature Gran % (Auto) Neut % (Auto) Lymph % (Auto) [place] % (Auto) Eos % (Auto) Baso % (Auto) Lymph # (Auto) [place] # (Auto) Eos # (Auto) Baso # (Auto) Abs Immat Gran (auto) Absolute Neuts (auto) Absolute Nucleated RBC Nucleated RBC % (auto) Smear Tech's Comments PT INR APTT VBG pH 7.44 H VBG pCO2 30 VBG pO2 100 VBG HCO3 21 VBG O2 Saturation 98.0 VBG Base Excess -1.9 Sodium 133 L Potassium 4.1 Chloride 93 L Carbon Dioxide 22 Anion Gap 22 H BUN 13 Creatinine 0.82 Estim Creat Clear Calc 98.1 Estimated GFR > 60 Random Glucose 122 H Lactic Acid Lactic Acid Fup @ 2Hr 2.0 Calcium 7.6 L Magnesium 2.1 Total Bilirubin Direct Bilirubin GGT AST ALT Alkaline Phosphatase Lactate Dehydrogenase Total Creatine Kinase C-Reactive Protein Total Protein Albumin Lipase Urine Color Urine Appearance Urine pH Ur Specific [place] Urine Protein Urine Glucose (UA) Urine Ketones Urine Blood Urine Nitrite Ur Leukocyte Esterase Urine RBC Urine WBC Ur Squamous Epith Cells Urine Bacteria Ethyl Alcohol COVID-19 (BRENDAN) COVID-19 Clin Com 12/24/20 12/24/20 12/24/20 06:29 06:29 08:34 WBC 6.1 RBC 3.24 L Hgb 11.0 L Hct 31.7 L MCV 97.8 MCH 34.0 H MCHC 34.7 RDW 15.4 Plt Count 60 L MPV 12.1 Immature Gran % (Auto) 0.3 Neut % (Auto) 81.6 H Lymph % (Auto) 11.0 L [place] % (Auto) 6.7 Eos % (Auto) 0.2 Baso % (Auto) 0.2 Lymph # (Auto) 0.7 L [place] # (Auto) 0.4 Eos # (Auto) 0.0 Baso # (Auto) 0.0 Abs Immat Gran (auto) 0.02 Absolute Neuts (auto) 5.0 Absolute Nucleated RBC 0.030 H Nucleated RBC % (auto) 0.5 H Smear Tech's Comments VERIFIED PT INR APTT VBG pH VBG pCO2 VBG pO2 VBG HCO3 VBG O2 Saturation VBG Base Excess Sodium 134 L Potassium 3.1 L D Chloride 93 L Carbon Dioxide 25 Anion Gap 19 BUN 8 L Creatinine 0.60 Estim Creat Clear Calc 134.1 Estimated GFR > 60 Random Glucose 84 Lactic Acid Lactic Acid Fup @ 2Hr Calcium 7.8 L Magnesium 1.7 Total Bilirubin 3.3 H Direct Bilirubin 2.5 H GGT 1874 H AST 244 H ALT 92 H Alkaline Phosphatase 145 H Lactate Dehydrogenase 394 H Total Creatine Kinase 215 H D C-Reactive Protein 4.17 H Total Protein 6.4 L Albumin 3.1 L Lipase 680 H Urine Color Urine Appearance Urine pH Ur Specific [place] Urine Protein Urine Glucose (UA) Urine Ketones Urine Blood Urine Nitrite Ur Leukocyte Esterase Urine RBC Urine WBC Ur Squamous Epith Cells Urine Bacteria Ethyl Alcohol COVID-19 (BRENDAN) COVID-19 Notizza 12/25/20 12/26/20 12/26/20 12:54 11:32 15:57 WBC RBC Hgb Hct MCV MCH MCHC RDW Plt Count MPV Immature Gran % (Auto) Neut % (Auto) Lymph % (Auto) [place] % (Auto) Eos % (Auto) Baso % (Auto) Lymph # (Auto) [place] # (Auto) Eos # (Auto) Baso # (Auto) Abs Immat Gran (auto) Absolute Neuts (auto) Absolute Nucleated RBC Nucleated RBC % (auto) Smear Tech's Comments PT INR APTT VBG pH VBG pCO2 VBG pO2 VBG HCO3 VBG O2 Saturation VBG Base Excess Sodium 133 L 134 L Potassium 2.8 L 3.2 L 2.9 L Chloride 93 L 96 Carbon Dioxide 29 28 Anion Gap 14 13 BUN 5 L Creatinine 0.56 Estim Creat Clear Calc 143.7 Estimated GFR > 60 Random Glucose 99 Lactic Acid Lactic Acid Fup @ 2Hr Calcium 8.0 L Magnesium 1.4 L* 2.4 2.1 Total Bilirubin 2.8 H Direct Bilirubin 2.3 H GGT AST 202 H ALT 94 H Alkaline Phosphatase 166 H Lactate Dehydrogenase Total Creatine Kinase C-Reactive Protein Total Protein 6.6 Albumin 3.2 L Lipase 474 H Urine Color Urine Appearance Urine pH Ur Specific [place] Urine Protein Urine Glucose (UA) Urine Ketones Urine Blood Urine Nitrite Ur Leukocyte Esterase Urine RBC Urine WBC Ur Squamous Epith Cells Urine Bacteria Ethyl Alcohol COVID-19 (BRENDAN) COVID-19 Notizza 12/27/20 12/27/20 12/27/20 05:44 05:44 14:48 WBC RBC Hgb Hct MCV MCH MCHC RDW Plt Count MPV Immature Gran % (Auto) Neut % (Auto) Lymph % (Auto) [place] % (Auto) Eos % (Auto) Baso % (Auto) Lymph # (Auto) [place] # (Auto) Eos # (Auto) Baso # (Auto) Abs Immat Gran (auto) Absolute Neuts (auto) Absolute Nucleated RBC Nucleated RBC % (auto) Smear Tech's Comments PT 11.7 INR 1.0 APTT VBG pH VBG pCO2 VBG pO2 VBG HCO3 VBG O2 Saturation VBG Base Excess Sodium 132 L Potassium 3.2 L Chloride 96 Carbon Dioxide 29 Anion Gap 10 L BUN 8 L D Creatinine 0.65 Estim Creat Clear Calc 123.8 Estimated GFR > 60 Random Glucose 120 H Lactic Acid Lactic Acid Fup @ 2Hr Calcium 7.7 L Magnesium 1.8 Total Bilirubin 1.7 H Direct Bilirubin 1.3 H GGT AST 72 H ALT 56 H Alkaline Phosphatase 136 H Lactate Dehydrogenase Total Creatine Kinase C-Reactive Protein Total Protein 5.8 L Albumin 2.8 L Lipase Urine Color Urine Appearance Urine pH Ur Specific [place] Urine Protein Urine Glucose (UA) Urine Ketones Urine Blood Urine Nitrite Ur Leukocyte Esterase Urine RBC Urine WBC Ur Squamous Epith Cells Urine Bacteria Ethyl Alcohol COVID-19 (BRENDAN) [id number] Notizza 12/28/20 12/28/20 12/29/20 06:33 06:33 05:54 WBC RBC Hgb Hct MCV MCH MCHC RDW Plt Count MPV Immature Gran % (Auto) Neut % (Auto) Lymph % (Auto) [place] % (Auto) Eos % (Auto) Baso % (Auto) Lymph # (Auto) [place] # (Auto) Eos # (Auto) Baso # (Auto) Abs Immat Gran (auto) Absolute Neuts (auto) Absolute Nucleated RBC Nucleated RBC % (auto) Smear Tech's Comments PT INR APTT VBG pH VBG pCO2 VBG pO2 VBG HCO3 VBG O2 Saturation VBG Base Excess Sodium 134 L 137 Potassium 3.4 3.3 Chloride 99 101 Carbon Dioxide 27 28 Anion Gap 11 L 11 L BUN 8 L 7 L Creatinine 0.60 0.60 Estim Creat Clear Calc 134.1 134.1 Estimated GFR > 60 > 60 Random Glucose 97 104 Lactic Acid Lactic Acid Fup @ 2Hr Calcium 7.5 L 7.6 L Magnesium 1.8 1.7 Total Bilirubin 1.4 H 1.1 H Direct Bilirubin 1.1 H 0.9 H GGT AST 53 H 42 H ALT 46 H 37 Alkaline Phosphatase 144 H 140 H Lactate Dehydrogenase Total Creatine Kinase C-Reactive Protein Total Protein 5.9 L 5.9 L Albumin 2.7 L 2.7 L Lipase 373 H Urine Color Urine Appearance Urine pH Ur Specific [place] Urine Protein Urine Glucose (UA) Urine Ketones Urine Blood Urine Nitrite Ur Leukocyte Esterase Urine RBC Urine WBC Ur Squamous Epith Cells Urine Bacteria Ethyl Alcohol COVID-19 (BRENDAN) [id number] Notizza 12/30/20 12/30/20 05:41 05:41 WBC RBC Hgb Hct MCV MCH MCHC RDW Plt Count MPV Immature Gran % (Auto) Neut % (Auto) Lymph % (Auto) [place] % (Auto) Eos % (Auto) Baso % (Auto) Lymph # (Auto) [place] # (Auto) Eos # (Auto) Baso # (Auto) Abs Immat Gran (auto) Absolute Neuts (auto) Absolute Nucleated RBC Nucleated RBC % (auto) Smear Tech's Comments PT INR APTT VBG pH VBG pCO2 VBG pO2 VBG HCO3 VBG O2 Saturation VBG Base Excess Sodium 136 Potassium 3.6 Chloride 99 Carbon Dioxide 31 H Anion Gap 10 L BUN 7 L Creatinine 0.68 Estim Creat Clear Calc 118.4 Estimated GFR > 60 Random Glucose 106 Lactic Acid Lactic Acid Fup @ 2Hr Calcium 7.9 L Magnesium 1.6 Total Bilirubin 1.1 H Direct Bilirubin 0.9 H GGT AST 43 H ALT 36 Alkaline Phosphatase 156 H Lactate Dehydrogenase Total Creatine Kinase C-Reactive Protein Total Protein 6.4 L Albumin 2.9 L Lipase Urine Color Urine Appearance Urine pH Ur Specific [place] Urine Protein Urine Glucose (UA) Urine Ketones Urine Blood Urine Nitrite Ur Leukocyte Esterase Urine RBC Urine WBC Ur Squamous Epith Cells Urine Bacteria Ethyl Alcohol COVID-19 (BRENDAN) COVID-19 Clin Com Discharge Plan Discharge Anticipated Discharge Date/Time: 12/31/20 11:18 Patient Disposition: Home, Self-Care Discharge Diagnosis: alcohol dependence Referrals: Viji Lanza MD [Physician] - 1 Week (seizure) Physician,None [Primary Care Provider] - Discharge Medications: New gabapentin 300 mg Capsule 300 mg PO TID Qty: 90 RF: 0 Continued metoprolol tartrate 50 mg Tablet 50 mg PO BID RF: 0 No Action Incruse Ellipta 62.5 mcg/actuation blister with device 1 inh inhalation DAILY 30 Days Qty: 1 RF: 6 Discharge Orders: Discharge Order (Routine); Ordered 12/31/20 Ordered By: Nico Topete Diet: advance to usual diet Activity on Discharge: As tolerated Stand Alone Forms: Patient Portal Discharge page Visit Report Forms: Patient Portal Discharge page Care Plan Goals: Stay sobber Health Concerns: alcoholism, seizure Plan of Treatment: Take Nueorontin as recommending, follow up with Dr. lanza to be clear to drive, NO DRIVING OR OPERATING HEAVY MACHINERY, DO NO SWIM ALONE Assessment: alcohol dependency Discharge Date/Time: 12/31/20 16:01
--- NOTE | 2020-12-31 11:40 | MHC.RECOVSUP ---
Recovery Support note: This freelance writer spoke with patient's brother, Blayne, at the request of CM. Provided Blayne with this freelance writer's contact info as well as information on AA, IOP, MAT, outpatient therapy and recovery coaching.
--- NOTE | 2020-12-31 11:48 | MHC.CM.PN ---
NURSE FIRE FIGHTER CRASH FIRE AND RESCUE NOTE ELECTRONIC MEDICAL RECORD REVIEWED ALONG WITH CASE DISCUSSED WITH STAFF NURSE AND ON MULTIPLE DISCIPLINARY ROUNDS PATIENT HAS MET WITH MEMBER OF THE CARES [employer]AN PANDYA , HE WAS GIVEN ETOH ABUSE RESOURCE INFORMATION, COMMUNITY SUPPORTS INFORMATION AND HOEW T REACH THE [facility] CULTURIST HERE AT THE HOUSE OF [facility], PATIENTS BROTHER ASKED IF THE GROUP PRESIDENT T CALL HIM [phone] FLORIN TONEY SO THAT IN CASE HIS BROTHER OOSES THE INFORMATION HE AWILL ALSO HAVE IT , AND CAN ASSIST HIM I SPOKE WITH FLORIN AND HE IS AWARE PATIENT CONNIE BE DISCHARGED HOME TODAY DISCHARGE PLAN HOME WITH CARES TEAMS RECOMENDATIONS PCP PTS BROTHER WILL ASSIST HIM IN CALLING FOR HIS PCP FOLLOW UP TRANSPORTATION-FAMILY
[2020-12-31 12:00] VITALS: BP 140/93; PULSE 108; RESP 18; TEMP 36.7; O2SAT 97
== END 2020-12-31 16:01 | disposition home or self-care (01) | DRG 282 ==
LOC: HO.ED 06:46 → HO.EDOVER 12:46 → HO.IMC 12-24 07:18 → HO.S3 12-27 10:38
PROVIDERS: Internal Medicine Gastroenterology; Nurse Practitioner Acute Care; Student in an Organized Health Care Education/Training Program; Admitting Provider Internal Medicine; Emergency Provider Emergency Medicine; Visit Provider Internal Medicine
DX: K85.20 Alcohol induced acute pancreatitis without necrosis or infection (principal); F10.231 Alcohol dependence with withdrawal delirium; J43.9 Emphysema, unspecified; R56.9 Unspecified convulsions; E83.42 Hypomagnesemia; Z20.822 Contact with and (suspected) exposure to COVID-19; E87.1 Hypo-osmolality and hyponatremia; E86.0 Dehydration; Z87.891 Personal history of nicotine dependence; R91.8 Other nonspecific abnormal finding of lung field; K20.90 Esophagitis, unspecified without bleeding; Z79.899 Other long term (current) drug therapy
CPT/HCPCS: 36415; 70450; 71045; 71250; 72125; 74177; 80048; 80051; 80053; 80076; 80320; 81001; 81003; 82550; 82803; 82977; 83605; 83615; 83690; 83735; 84132; 85025; 85610; 85730; 86140; 87635; 93005; 95816; 96361; 96365; 96372; 96375; 97162; 99285; J2060; J2560; J3411; J3475; Q9967

== ENCOUNTER → 2021-01-14 15:50 | Outpatient (BNVA) | payer MEDICAID, SELFPAY | PROVIDERS: PCP Internal Medicine; Visit Provider Internal Medicine Pulmonary Disease | DX: R91.8 Other nonspecific abnormal finding of lung field (principal); J44.9 Chronic obstructive pulmonary disease, unspecified | CPT/HCPCS: 99202 ==

== ENCOUNTER 2021-05-08 10:16 | Inpatient (IN) | payer MEDICAID, SELFPAY ==
[2021-05-08] VITALS (9 sets, daily range): BP systolic 117–160; BP diastolic 63–92; PULSE 107–128; RESP 16–20; TEMP 36.6–37.1; O2SAT 96–100; BMI 24.0
--- NOTE | ~2021-05-08 | CT_ITS ---
EXAMINATION: CT ABDOMEN AND PELVIS WITH CONTRAST CLINICAL INFORMATION: Diffuse abdominal pain. History of pancreatitis. COMPARISON: Previous CT of the abdomen and pelvis December 2020 TECHNIQUE: Multidetector volumetric images were obtained from the superior aspect of the liver through the pubic symphysis following administration 85 mL of Omnipaque 350 intravenous contrast. Sagittal and coronal reformatted images were obtained on the technologist's workstation. Oral contrast: Yes This CT examination was performed using dose optimization techniques as appropriate, variously including the following: *Automated exposure control *Adjustment of mA and/or kV according to patient size (this includes techniques or standardized protocols for targeted exams where dose is matched to indication/reason for exam; i.e. extremities or head) *Use of iterative reconstruction technique DLP: 544 mGy-cm FINDINGS: LUNG BASES: The visualized lung bases are unremarkable. LIVER, GALLBLADDER, AND BILIARY TREE: The liver is enlarged and low in attenuation suggestive of fatty infiltration. No focal liver lesion is seen. The gallbladder is normal. There is no biliary duct dilatation. PANCREAS: The pancreas is normal-appearing. SPLEEN: Unremarkable. ADRENAL GLANDS: Unremarkable. KIDNEYS AND URETERS: The kidneys are normal in size, shape, and attenuation. No hydronephrosis, hydroureter, or calculi seen. No perinephric stranding. BLADDER: Unremarkable. GASTROINTESTINAL TRACT: There is mild wall thickening and fatty infiltration of the bowel wall of the colon. This is a nonspecific finding but can be seen with changes from old colitis. No evidence of acute colitis seen. The small and large bowel are otherwise unremarkable. The appendix is unremarkable. The stomach is unremarkable. ABDOMINAL WALL: There is a small right inguinal hernia containing fat. LYMPH NODES: There are small periportal lymph nodes. No enlarged lymph nodes are seen. There is no ascites. VASCULAR: Unremarkable. PELVIC VISCERA: Unremarkable. OSSEOUS STRUCTURES: There are degenerative changes of the spine. CT/CT abdomen pelvis w con IMPRESSION: Enlarged fatty liver. Normal-appearing pancreas. Mild diffuse wall thickening and fatty infiltration of the bowel wall of the colon. This is a nonspecific finding but can be seen with changes from old colitis. No evidence of acute colitis.
--- NOTE | 2021-05-08 10:42 | ED_ITS ---
HPI - Alcohol General Chief Complaint: ETOH/Substance Use Stated Complaint: abd pain, n/v x2 days Time Seen by Provider: 05/08/21 10:28 Source: patient and EMS Mode of arrival: EMS Limitations: no limitations History of Present Illness HPI narrative: Patient comes emergency room complaining of abdominal pain, nausea vomiting for 2 days. Patient also reports that he is heavy alcohol drinker, last drink was over 24 hours ago. Patient states that he is known to have alcohol withdrawal seizures. Also, 4 months ago, patient had pancreatitis induced by alcohol. At this time, besides abdominal pain and the nausea, patient states that he feels very shaky complaint: alcohol withdrawal Related Data Home Medications Medication Instructions Recorded Confirmed metoprolol tartrate 50 mg PO BID 12/23/20 12/23/20 Previous Rx's Medication Instructions Recorded gabapentin 300 mg PO TID #90 cap 12/31/20 umeclidinium 62.5 mcg/actuation 1 inh INHALATION DAILY 30 Days #1 01/14/21 blister powder for inhalation ea Allergies Allergy/AdvReac Type Severity Reaction Status Date / Time No Known Allergies Allergy Verified 01/14/21 15:54 Review of Systems Review of Systems: Constitutional : No Weight loss, No Fever, No Chills, No Night Sweats, No Fatigue, No Malaise, complaining of feeling tremulous ENT/Mouth : No Hearing loss, No Ear Pain, No Nasal Congestion, No Sinus Pain, No Hoarseness, No sore throat, No Rhinorrhea, No Swallowing Difficulty Eyes: No Eye Pain, No Swelling, No Redness, No Foreign Body, No Discharge, No Vision Changes Cardiovascular : No Chest Pain, No SOB, No Dyspnea on Exertion, No Orthopnea, No Edema, No Palpitations Respiratory : No Cough, No Sputum, No Wheezing, No Smoke Exposure, No Dyspnea Gastrointestinal : Complaining of nausea and vomiting No Diarrhea, No Constipation, complaining of diffuse abdominal pain, worse in the epigastric region, states that he has noted occasional black stool over last few days, no maida blood Genitourinary : no irregular bleeding, No Dysuria, No Urinary Frequency, No Hematuria, No Urinary Incontinence, No Urgency, No Flank Pain, No Urinary Flow Changes, No Hesitancy Musculoskeletal : No joint pain, No Myalgias, No Joint Swelling Skin : No Skin Lesions, No rash Neuro : No Weakness, No Numbness, No Paresthesias, No Loss of Consciousness, No Dizziness, No Headache Psych : No Anxiety/Panic, No Depression, No SI/HI/AH/VH, alcohol drinker Heme/Lymph: No Bruising, No Bleeding,No Lymphadenopathy Endocrine : No Polyuria, No Polydipsia, No Temperature Intolerance PMF Past Medical History Medical History Alcohol abuse DTs (delirium tremens) Elevated liver function tests Hypertension Surgical History Hx of colonoscopy No pertinent past surgical history Social History Social History Household Members: Spouse Housing: House Do you presently have visiting nurse or other home services: No Alcohol intake: current Alcohol intake frequency: 3 or more drinks per day Alcohol type: hard liquor Patient Tobacco Use Status: Tobacco use Unknown Second Hand Smoke Exposure: No Use of substances other than those prescribed or required for medical reasons: No Advance Directives: Yes Advance Directives on File: Yes Advance Directives Date on File: 01/01/21 service: Yes Current occupational status: unemployed Physical Exam Vital Signs: Vital Signs: Last Vital Signs Temp 98.2 F 05/08/21 11:24 Pulse 119 H 05/08/21 13:01 Resp 16 05/08/21 13:01 BP 146/90 H 05/08/21 13:01 Pulse Ox 97 05/08/21 13:01 Body Mass Index 24.0 Appearance: Alert. Oriented X3. No acute distress, tremulous. Seems to be withdrawing from alcohol Eyes: Pupils equal, round and reactive to light. ENT: Pharynx normal. Neck: Normal inspection. Neck supple. No lymph nodes noted. No crepitus CVS: Tachycardic, strong pulses, Normal S1 and S2 Respiratory: No respiratory distress. Breath sounds normal. No Wheezing. No rales Abdomen: Soft, pain to palpation over the epigastric area, No rigidity. No distention. PIPO shows brown stool Skin: Skin warm and dry. Normal skin color. Normal skin turgor. Extremities: No lower extremity edema. No Lacerations. No Rash Neuro: Oriented X 3. No motor deficit. No sensory deficit. Moving all extermities. No slurred speech. Course Course Course Narrative: Patient is actively withdrawing from alcohol. Patient was given 2 mg of Ativan to prevent any seizures which he has had in the past. Patient was also started on the phenobarb protocol. I discussed the patient with Dr. Rolon, patient being admitted for alcohol withdrawal. Patient's lipase is 254, on the CT scan does not seem to be acute pancreatitis, patient has had pancreatitis in the past. MDM - Alcohol Lab Data Result diagrams: 05/08/21 11:25 05/08/21 11:25 Labs: Lab Results 05/08/21 05/08/21 05/08/21 Range/Units 11:25 11:25 11:25 WBC 8.0 (4.8-10.8) X10*3/uL RBC 3.20 L (4.60-5.80) X10*6/uL Hgb 10.6 L (14.0-18.0) g/dl Hct 30.1 L (42-52) % MCV 94.1 (80-98) fL MCH 33.1 H (27.0-33.0) pg MCHC 35.2 (31.0-36.0) g/dl RDW 14.6 (11.0-16.0) % Plt Count 322 D (160-400) X10*3/uL MPV 9.4 (9.4-12.4) fL Immature Gran % (Auto) 1.3 H (0.0-0.4) % Neut % (Auto) 83.0 H (45-73) % Lymph % (Auto) 6.0 L (20-40) % [place] % (Auto) 9.2 (2-11) % Eos % (Auto) 0.0 (0-4) % Baso % (Auto) 0.5 (0-2) % Lymph # (Auto) 0.5 L (1.2-4.9) X10*3/uL [place] # (Auto) 0.7 (0.1-1.2) X10*3/uL Eos # (Auto) 0.0 (0.0-0.4) X10*3/uL Baso # (Auto) 0.0 (0.0-0.2) X10*3/uL Abs Immat Gran (auto) 0.10 H (0.00-0.03) X10*3/uL Absolute Neuts (auto) 6.6 (2.0-8.3) X10*3/uL Absolute Nucleated RBC 0.030 H (0.0-0.012) X10*3/uL Nucleated RBC % (auto) 0.4 H (0.0-0.2) /100WBC Sodium 133 L (135-145) mmol/L Potassium 3.6 (3.3-5.1) mmol/L Chloride 85 L (96-108) mmol/L Carbon Dioxide 25 (22-29) mmol/L Anion Gap 27 H (12-20) BUN 10 (9-16) mg/dL Creatinine 1.01 (0.5-1.4) mg/dL Estim Creat Clear Calc 78.7 Estimated GFR > 60 Random Glucose 165 H D (60-115) mg/dL Calcium 8.2 L (8.4-10.2) mg/dL Magnesium 1.3 L* (1.6-2.6) mg/dL Total Bilirubin 2.9 H (0.0-1.0) mg/dL Direct Bilirubin 2.1 H (0.0-0.5) mg/dL AST 199 H (5-37) U/L ALT 61 H (0-40) U/L Alkaline Phosphatase 224 H D (39-117) U/L Total Protein 7.4 (6.5-8.0) g/dL Albumin 3.3 L (3.5-5.0) g/dL Lipase 254 H (8-78) U/L Stool Occult Blood (NEGATIVE) Ethyl Alcohol < 10 mg/dL COVID-19 ([facility]) (Negative) COVID-19 Clin Com 05/08/21 05/08/21 Range/Units 11:25 11:25 WBC (4.8-10.8) X10*3/uL RBC (4.60-5.80) X10*6/uL Hgb (14.0-18.0) g/dl Hct (42-52) % MCV (80-98) fL MCH (27.0-33.0) pg MCHC (31.0-36.0) g/dl RDW (11.0-16.0) % Plt Count (160-400) X10*3/uL MPV (9.4-12.4) fL Immature Gran % (Auto) (0.0-0.4) % Neut % (Auto) (45-73) % Lymph % (Auto) (20-40) % [place] % (Auto) (2-11) % Eos % (Auto) (0-4) % Baso % (Auto) (0-2) % Lymph # (Auto) (1.2-4.9) X10*3/uL [place] # (Auto) (0.1-1.2) X10*3/uL Eos # (Auto) (0.0-0.4) X10*3/uL Baso # (Auto) (0.0-0.2) X10*3/uL Abs Immat Gran (auto) (0.00-0.03) X10*3/uL Absolute Neuts (auto) (2.0-8.3) X10*3/uL Absolute Nucleated RBC (0.0-0.012) X10*3/uL Nucleated RBC % (auto) (0.0-0.2) /100WBC Sodium (135-145) mmol/L Potassium (3.3-5.1) mmol/L Chloride (96-108) mmol/L Carbon Dioxide (22-29) mmol/L Anion Gap (12-20) BUN (9-16) mg/dL Creatinine (0.5-1.4) mg/dL Estim Creat Clear Calc Estimated GFR Random Glucose (60-115) mg/dL Calcium (8.4-10.2) mg/dL Magnesium (1.6-2.6) mg/dL Total Bilirubin (0.0-1.0) mg/dL Direct Bilirubin (0.0-0.5) mg/dL AST (5-37) U/L ALT (0-40) U/L Alkaline Phosphatase (39-117) U/L Total Protein (6.5-8.0) g/dL Albumin (3.5-5.0) g/dL Lipase (8-78) U/L Stool Occult Blood NEGATIVE (NEGATIVE) Ethyl Alcohol mg/dL COVID-19 ([facility]) Negative (Negative) COVID-19 Clin Com See Note Discharge Plan Discharge Clinical Impression: Alcohol withdrawal Patient Disposition: Admitted As Inpatient Prescriptions: No Action metoprolol tartrate 50 mg Tablet 50 mg PO BID RF: 0 gabapentin 300 mg Capsule 300 mg PO TID Qty: 90 RF: 0 Incruse Ellipta 62.5 mcg/actuation blister with device 1 inh inhalation DAILY 30 Days Qty: 1 RF: 6
[2021-05-08] MEDS: LORazepam 2 MG/ML VIAL IVPUSH (10:49)
[2021-05-08] MEDS: 0.9 % Sodium Chloride 1,000 ML 999 ML IVCONT ×2 (10:49→11:15)
[2021-05-08] MEDS: ondansetron HCL 4 MG/2 ML VIAL IVPUSH (10:49)
[2021-05-08] MEDS: Thiamine HCL 200 MG/2 ML VIAL IVPUSH (10:49)
[2021-05-08 11:31] LABS: MANUAL DIFF FLAG NO
[2021-05-08 11:32] LABS: Basophils Percent Auto 0.5 % (0-2); Hematocrit 30.1 % (42-52); Hemoglobin 10.6 g/dl (14.0-18.0); Imm Gran Pct Auto 1.3 % (0.0-0.4); Lymphocytes Absolute Auto 0.5 X10*3/uL (1.2-4.9); Mean Corpuscular HGB Conc 35.2 g/dl (31.0-36.0); Mean Corpuscular Hemoglobin 33.1 pg (27.0-33.0); Mean Corpuscular Volume 94.1 fL (80-98); Mean Platelet Volume 9.4 fL (9.4-12.4); Monocytes Absolute Auto 0.7 X10*3/uL (0.1-1.2); Monocytes Percent Auto 9.2 % (2-11); NRBC Pct Auto 0.4 /100WBC (0.0-0.2); Neutrophils Absolute Auto 6.6 X10*3/uL (2.0-8.3); OBS Int Ctl Valid YES; OBS1 NEGATIVE (NEGATIVE); Platelet Count 322 X10*3/uL (160-400); Red Cell Distribution Width 14.6 % (11.0-16.0)
[2021-05-08 11:51] LABS: Ethanol < 10 mg/dL
[2021-05-08 12:01] LABS: Alanine Aminotransferase 61 U/L (0-40); Albumin Level 3.3 g/dL (3.5-5.0); Alkaline Phosphatase 224 U/L (39-117); Anion Gap 27 (12-20); Aspartate Amino Transferase 199 U/L (5-37); Bilirubin Direct 2.1 mg/dL (0.0-0.5); Bilirubin Total 2.9 mg/dL (0.0-1.0); Blood Urea Nitrogen 10 mg/dL (9-16); Calcium 8.2 mg/dL (8.4-10.2); Carbon Dioxide 25 mmol/L (22-29); Chloride 85 mmol/L (96-108); Creatinine Clr Calc Pharmacy 78.7; Estimated Glomerular Filt Rate > 60; Glucose Random 165 mg/dL (60-115); Magnesium 1.3 mg/dL (1.6-2.6); Potassium 3.6 mmol/L (3.3-5.1); Sodium 133 mmol/L (135-145); Total Protein 7.4 g/dL (6.5-8.0)
[2021-05-08 12:11] LABS: Lipase 254 U/L (8-78)
[2021-05-08 12:24] LABS: IDNOW Serial# 9DD0AD1C
[2021-05-08 12:25] LABS: COVID-19 Test Negative (Negative)
[2021-05-08] MEDS: iohexoL 350 MG/ML 100 ML INFUS..BTL IV (12:44)
[2021-05-08] MEDS: PHENobarbitaL sodium 130 MG/ML VIAL 283 MG IM (12:55)
[2021-05-08] MEDS: Magnesium Sulfate/H2O 2 GM/50 ML PIGGYBACK IV (12:55)
--- NOTE | 2021-05-08 14:52 | PM.IMHP ---
History of Present Illness Date of Service: 05/08/21 Chief Complaint: Nausea, vomiting, abdominal pain A 59 years old male with PMH of COPD, alcohol abuse with history of DTs presents to the hospital with 2 days history of abdominal pain, nausea and vomiting. He reports absent from drink for 24 hours before coming to the hospital. He drinks a pt of whiskey on a daily basis but for the last 3 days been having more nausea and vomiting and yesterday had to stop tricky because he could not to rated and was vomiting. Denies any fever, chills, shortness of breath or chest pain. This morning he woke up feeling very sick and tired with increased shakiness and unsteadiness. In the emergency he was found to have hyponatremia, hypomagnesemia and to be in alcohol withdrawal. Started phenobarbital treatment. Admitted for further evaluation and treatment. Review of Systems Review of Systems: No fever, chills but reports generalized weakness and shakiness No chest pain, palpitation No shortness of breath or coughing Has abdominal pain generalized with associated nausea or vomiting No urinary symptoms No any rash or wounds PMFSH Medical History Alcohol abuse DTs (delirium tremens) Elevated liver function tests Hypertension Surgical History Hx of colonoscopy No pertinent past surgical history Social History Household Members: Spouse Housing: House Do you presently have visiting nurse or other home services: No Alcohol intake: current Alcohol intake frequency: 3 or more drinks per day Alcohol type: hard liquor Patient Tobacco Use Status: Tobacco use Unknown Second Hand Smoke Exposure: No Use of substances other than those prescribed or required for medical reasons: No Advance Directives: Yes Advance Directives on File: Yes Advance Directives Date on File: 01/01/21 service: Yes Current occupational status: unemployed Meds Allergies Allergy/AdvReac Type Severity Reaction Status Date / Time No Known Allergies Allergy Verified 01/14/21 15:54 Active Medications: Current Medications Generic Name Dose Route Start Last Admin Trade Name Freq PRN Reason Stop Dose Admin Medication 1 each 05/08/21 12:48 No Benzodiazepines MISCELLANE DAILY [facility] Pharmacy Consult 1 each 05/08/21 14:14 Consult Rx Perform Med Rec MISCELLANE ONCE PRN Consult order Phenobarbital 45 mg 05/09/21 09:00 Phenobarbital 15 Mg Tablet PO 05/10/21 21:01 BID [facility] Protocol Phenobarbital 30 mg 05/11/21 09:00 Phenobarbital 30 Mg Tablet PO 05/12/21 21:01 BID [facility] Protocol Phenobarbital 30 mg 05/13/21 09:00 Phenobarbital 30 Mg Tablet PO 05/14/21 09:01 DAILY [facility] Protocol Phenobarbital Sodium 212 mg 05/08/21 16:00 Phenobarbital Sodium 130 Mg/Ml Vial IM 05/08/21 19:01 Q3H [facility] Protocol Home Medications Medication Instructions Recorded Confirmed Last Taken Type metoprolol tartrate 50 mg PO BID 12/23/20 12/23/20 Unknown History Physical Exam Vital Signs and Narrative: Vital Signs: Last Vital Signs Temp 98.2 F 05/08/21 11:24 Pulse 119 H 05/08/21 13:01 Resp 16 05/08/21 13:01 BP 146/90 H 05/08/21 13:01 Pulse Ox 97 05/08/21 13:01 Body Mass Index 24.0 Const: Other: Constitutional : Alert, oriented to self and place, sleepy, shaky upon waking up Neck : Normal inspection, Supple Cardiovascular : RRR, S1 S2, no lower extremity edema Respiratory : Good bilateral air entry, no crackles, wheezes or rhonchi Gastrointestinal: soft, lax, Normal bowel sounds, Non tender Skin : Warm/Dry, No rash Neurological : Alert & oriented to self and place, increased shakiness,, No focal deficit Results Labs CBC and Chem 7: 05/08/21 11:25 05/08/21 11:25 Labs: Laboratory Results - last 24 hr 05/08/21 05/08/21 05/08/21 11:25 11:25 11:25 MCV 94.1 MCH 33.1 H MCHC 35.2 RDW 14.6 Plt Count 322 D MPV 9.4 Immature Gran % (Auto) 1.3 H Neut % (Auto) 83.0 H Lymph % (Auto) 6.0 L [place] % (Auto) 9.2 Eos % (Auto) 0.0 Baso % (Auto) 0.5 Lymph # (Auto) 0.5 L [place] # (Auto) 0.7 Eos # (Auto) 0.0 Baso # (Auto) 0.0 Abs Immat Gran (auto) 0.10 H Absolute Neuts (auto) 6.6 Absolute Nucleated RBC 0.030 H Nucleated RBC % (auto) 0.4 H Anion Gap 27 H Estim Creat Clear Calc 78.7 Estimated GFR > 60 Random Glucose 165 H D Calcium 8.2 L Magnesium 1.3 L* Total Bilirubin 2.9 H Direct Bilirubin 2.1 H AST 199 H ALT 61 H Alkaline Phosphatase 224 H D Total Protein 7.4 Albumin 3.3 L Lipase 254 H Stool Occult Blood Ethyl Alcohol < 10 COVID-19 ([facility]) COVID-19 [facility] Com 05/08/21 05/08/21 11:25 11:25 MCV MCH MCHC RDW Plt Count MPV Immature Gran % (Auto) Neut % (Auto) Lymph % (Auto) [place] % (Auto) Eos % (Auto) Baso % (Auto) Lymph # (Auto) [place] # (Auto) Eos # (Auto) Baso # (Auto) Abs Immat Gran (auto) Absolute Neuts (auto) Absolute Nucleated RBC Nucleated RBC % (auto) Anion Gap Estim Creat Clear Calc Estimated GFR Random Glucose Calcium Magnesium Total Bilirubin Direct Bilirubin AST ALT Alkaline Phosphatase Total Protein Albumin Lipase Stool Occult Blood NEGATIVE Ethyl Alcohol COVID-19 ([facility]) Negative COVID-19 Clin Com See Note Imaging Radiologist's Impressions: Impressions Abdomen/Pelvis CT 05/08/21 10:40 IMPRESSION: Enlarged fatty liver. Normal-appearing pancreas. Mild diffuse wall thickening and fatty infiltration of the bowel wall of the colon. This is a nonspecific finding but can be seen with changes from old colitis. No evidence of acute colitis. Assessment and Plan (1) Alcohol withdrawal: Qualifiers: Complication of substance-induced condition: uncomplicated Qualified Code(s): F10.230 - Alcohol dependence with withdrawal, uncomplicated Status: Acute (2) Alcohol abuse: Status: Acute (3) Hypomagnesemia: Status: Acute (4) Hyponatremia: Status: Acute (5) Transaminitis: Status: Acute A 59 years old male with PMH of COPD, alcohol abuse with history of DTs presents to the hospital with 2 days history of abdominal pain, nausea and vomiting. Alcohol abuse Alcohol withdrawal High risk for DTs with previous history Started on phenobarbital protocol To give IV thiamine, folic acid and multivitamins To get care team involved Advised total absence from alcohol Hypomagnesemia mg 1.3 Replacement given, to monitor Hyponatremia Mild, secondary to vomiting to give IV fluid and monitor response Transaminitis From alcohol abuse CT abdomen negative for any acute events Monitor and trend DVT PPX Xarelto Quality Stroke Does the patient have a stroke diagnosis?: No VTE Prior VTE?: No VTE Risk Level:: Medical - moderate - high VTE Device Contraindication: Treatment Not Indicated VTE Drug Contraindication: N/A - Med Ordered
--- NOTE | 2021-05-08 15:08 | HE.PHANOTE ---
MED REC COMPLETE, NO ISSUES
[2021-05-08] MEDS: Lactated Ringers 1,000 ML 80 ML IVCONT (15:23)
--- NOTE | 2021-05-08 15:59 | MHC.CM.PN ---
CM met with pt. Admitted for Alcohol withdrawal. 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 States he needs some help. Pt very tremulous. Lives with Janis and uses a wheeled walker. Has no services. Was in . Has no [facility] services. HCP is on file. Manuel Snell brother/HCP- [phone]. is optional HCP ([phone]). D/C plan is home without services. Family to arrange transportation home. CM to follow for d/c needs.
[2021-05-08] MEDS: PHENobarbitaL sodium 130 MG/ML VIAL 212 MG IM ×2 (16:31→20:10)
[2021-05-08 18:01] LABS: Glucose Urine UA NEG (NEG); Leukocyte Esterase Urine NEG (NEG); Nitrite Urine POS (NEG); PH 6.5 (5.0-8.0); Specific Gravity - Urine 1.025 (1.005-1.025); UACC Culture Trigger YES; Urine Blood NEG (NEG); Urine Ketones 40 MG/DL (NEG); Urine Protein 2+ MG/DL (NEG-TRACE)
[2021-05-08 18:02] LABS: Appearance Urine HAZY; Color Urine DARK YELLOW
[2021-05-08 18:11] LABS: Bacteria Urine 1+ /LPF; RBC Urine 0 /HPF (0); WBC Urine 0 /HPF (0-4)
--- NOTE | 2021-05-08 18:17 | PC.NURSE ---
pt was cleaned of a large amount or urine incontinence. HE has been repositioned, blankets applied. HE wakes, answers questions appropriately
[2021-05-08 18:22] LABS: Amphetamine Screen Urine Not Detected (Not Detect); Barbiturates, Urine Not Detected (Not Detect); Benzodiazepines Screen Urine Not Detected (Not Detect); Cannabinoid Screen Urine Not Detected (Not Detect); Cocaine Screen Urine Not Detected (Not Detect); Opiate Screen Urine Not Detected (Not Detect); Phencyclidine Screen Urine Not Detected (Not Detect)
[2021-05-09] VITALS (7 sets, daily range): BP systolic 90–126; BP diastolic 62–81; PULSE 89–110; RESP 18–20; TEMP 36.4–37.1; O2SAT 97–100
[2021-05-09] MEDS: Lactated Ringers 1,000 ML 80 ML IVCONT (04:49)
[2021-05-09 06:02] LABS: MANUAL DIFF FLAG NO
[2021-05-09 06:07] LABS: Basophils Percent Auto 0.5 % (0-2); Eosinophils Absolute Auto 0.2 X10*3/uL (0.0-0.4); Hematocrit 25.8 % (42-52); Imm Gran Abs Auto 0.09 X10*3/uL (0.00-0.03); Imm Gran Pct Auto 1.2 % (0.0-0.4); Lymphocytes Absolute Auto 0.9 X10*3/uL (1.2-4.9); Lymphocytes Percent Auto 12.3 % (20-40); Mean Corpuscular HGB Conc 34.9 g/dl (31.0-36.0); Mean Corpuscular Volume 94.5 fL (80-98); Mean Platelet Volume 10.2 fL (9.4-12.4); Monocytes Absolute Auto 0.5 X10*3/uL (0.1-1.2); Monocytes Percent Auto 6.5 % (2-11); NRBC Pct Auto 0.5 /100WBC (0.0-0.2); Neutrophils Absolute Auto 5.8 X10*3/uL (2.0-8.3); Neutrophils Percent Auto 77.5 % (45-73); Platelet Count 304 X10*3/uL (160-400); Red Blood Count 2.73 X10*6/uL (4.60-5.80); Red Cell Distribution Width 14.9 % (11.0-16.0); White Blood Count 7.5 X10*3/uL (4.8-10.8)
[2021-05-09 06:44] LABS: Anion Gap 17 (12-20); Blood Urea Nitrogen 8 mg/dL (9-16); Calcium 7.6 mg/dL (8.4-10.2); Carbon Dioxide 29 mmol/L (22-29); Chloride 87 mmol/L (96-108); Creatinine Clr Calc Pharmacy 100.6; Estimated Glomerular Filt Rate > 60; Glucose Random 127 mg/dL (60-115); Potassium 3.4 mmol/L (3.3-5.1); Sodium 130 mmol/L (135-145)
[2021-05-09 06:50] LABS: Alanine Aminotransferase 50 U/L (0-40); Albumin Level 2.8 g/dL (3.5-5.0); Alkaline Phosphatase 185 U/L (39-117); Aspartate Amino Transferase 161 U/L (5-37); Bilirubin Direct 2.2 mg/dL (0.0-0.5); Bilirubin Total 2.9 mg/dL (0.0-1.0); Magnesium 1.4 mg/dL (1.6-2.6); Total Protein 6.2 g/dL (6.5-8.0)
[2021-05-09] MEDS: Magnesium Sulfate/H2O 2 GM/50 ML PIGGYBACK IV (08:13)
[2021-05-09] MEDS: 0.9 % Sodium Chloride Flush 3 ML SYRINGE IVFLUSH (08:13)
[2021-05-09] MEDS: Thiamine HCL 200 MG/2 ML VIAL 100 MG IVPUSH (08:13)
[2021-05-09] MEDS: PHENobarbitaL 15 MG TABLET 45 MG PO ×2 (08:24→22:40)
[2021-05-09] MEDS: Magnesium Oxide 400 MG TABLET PO ×2 (08:24→17:07)
[2021-05-09] MEDS: Folic Acid 1 MG TABLET PO (08:24)
[2021-05-09] MEDS: Rivaroxaban 10 MG TABLET PO (08:24)
[2021-05-09] MEDS: Multivitamin TABLET 1 TAB PO (08:24)
[2021-05-09] MEDS: 0.9 % Sodium Chloride 1,000 ML 80 ML IVCONT ×2 (08:30→20:56)
--- NOTE | 2021-05-09 12:30 | HO.PM.IMPN ---
Subjective Subjective Date of Service: 05/09/21 Interval History: the patient was seen and evaluated this morning Laying in bed, feels little better today but still having tremors Denies any fever, chills or shortness of breath No reported other overnight events. Review of Systems No fever, chills but reports generalized weakness and shakiness No chest pain, palpitation No shortness of breath or coughing Has abdominal pain generalized with associated nausea or vomiting No urinary symptoms No any rash or wounds Physical Exam Vital Signs: Vital Signs: Last Vital Signs Temp 97.6 F 05/09/21 11:27 Pulse 105 H 05/09/21 11:27 Resp 18 05/09/21 11:27 BP 117/76 05/09/21 11:27 Pulse Ox 98 05/09/21 11:27 Body Mass Index 24.0 Const: Other: Constitutional : Alert, oriented to self and place, mildly anxious Neck : Normal inspection, Supple Cardiovascular : RRR, S1 S2, no lower extremity edema Respiratory : Good bilateral air entry, no crackles, wheezes or rhonchi Gastrointestinal: soft, lax, Normal bowel sounds, Non tender Skin : Warm/Dry, No rash Neurological : Alert & oriented to self and place, reagan improving, No focal deficit Objective Data Current Medications Generic Name Dose Route Start Last Admin Trade Name Freq PRN Reason Stop Dose Admin Acetaminophen 650 mg 05/08/21 18:17 Acetaminophen 325 Mg Tablet PO Q6H PRN Pain, Mild (Pain Scale 1-3) Folic Acid 1 mg 05/09/21 09:00 05/09/21 08:24 Folic Acid 1 Mg Tablet PO 1 mg DAILY [facility] Administration Sodium Chloride 1,000 mls @ 80 mls/hr 05/09/21 08:00 05/09/21 08:30 Ns IVCONT 80 mls/hr .[id number] [facility] Administration Magnesium Oxide 400 mg 05/09/21 08:30 05/09/21 08:24 Magnesium Oxide 400 Mg Tablet PO 400 mg BIDPC [facility] Administration Medication 1 each 05/08/21 12:48 No Benzodiazepines MISCELLANE DAILY [facility] Multivitamins/Vitamin C 1 tab 05/09/21 09:00 05/09/21 08:24 Multivitamin Tablet PO 1 tab DAILY [facility] Administration Ondansetron HCl 4 mg 05/08/21 18:17 Ondansetron Hcl 4 Mg/2 Ml Vial IVPUSH Q8H PRN Nausea and Vomiting Pharmacy Consult 1 each 05/08/21 14:14 Consult Rx Perform Med Rec MISCELLANE ONCE PRN Consult order Phenobarbital 45 mg 05/09/21 09:00 05/09/21 08:24 Phenobarbital 15 Mg Tablet PO 05/10/21 21:01 45 mg BID [facility] Administration Protocol Phenobarbital 30 mg 05/11/21 09:00 Phenobarbital 30 Mg Tablet PO 05/12/21 21:01 BID [facility] Protocol Phenobarbital 30 mg 05/13/21 09:00 Phenobarbital 30 Mg Tablet PO 05/14/21 09:01 DAILY [facility] Protocol Rivaroxaban 10 mg 05/09/21 09:00 05/09/21 08:24 Rivaroxaban 10 Mg Tablet PO 10 mg DAILY [facility] Administration Sodium Chloride 3 ml 05/08/21 18:17 05/09/21 08:13 0.9 % Sodium Chloride Flush 3 Ml Syringe IVFLUSH 3 ml QSHIFT [facility] Administration Thiamine HCl 100 mg 05/09/21 09:00 05/09/21 08:13 Thiamine Hcl 200 Mg/2 Ml Vial IVPUSH 100 mg DAILY [facility] Administration Labs CBC & Chem 7: 05/09/21 04:47 05/09/21 04:47 Labs: Laboratory Results - last 24 hr 05/08/21 05/08/21 05/09/21 17:46 17:46 04:47 WBC 7.5 RBC 2.73 L Hgb 9.0 L Hct 25.8 L MCV 94.5 MCH 33.0 MCHC 34.9 RDW 14.9 Plt Count 304 MPV 10.2 Immature Gran % (Auto) 1.2 H Neut % (Auto) 77.5 H Lymph % (Auto) 12.3 L Burnett % (Auto) 6.5 Eos % (Auto) 2.0 Baso % (Auto) 0.5 Lymph # (Auto) 0.9 L Burnett # (Auto) 0.5 Eos # (Auto) 0.2 Baso # (Auto) 0.0 Abs Immat Gran (auto) 0.09 H Absolute Neuts (auto) 5.8 Absolute Nucleated RBC 0.040 H Nucleated RBC % (auto) 0.5 H Sodium Potassium Chloride Carbon Dioxide Anion Gap BUN Creatinine Estim Creat Clear Calc Estimated GFR Random Glucose Calcium Magnesium Total Bilirubin Direct Bilirubin AST ALT Alkaline Phosphatase Total Protein Albumin Urine Color DARK YELLOW Urine Appearance HAZY Urine pH 6.5 Ur Specific [place] 1.025 Urine Protein 2+ H Urine Glucose (UA) NEG Urine Ketones 40 Urine Blood NEG Urine Nitrite POS H Ur Leukocyte Esterase NEG Urine RBC 0 Urine WBC 0 Ur Squamous Epith Cells NONE Urine Bacteria 1+ Urine Opiates Screen Not Detected Ur Barbiturates Screen Not Detected Ur Phencyclidine Scrn Not Detected Ur Amphetamines Screen Not Detected U Benzodiazepines Scrn Not Detected Urine Cocaine Screen Not Detected U Marijuana (THC) Screen Not Detected 05/09/21 05/09/21 04:47 04:47 WBC RBC Hgb Hct MCV MCH MCHC RDW Plt Count MPV Immature Gran % (Auto) Neut % (Auto) Lymph % (Auto) Burnett % (Auto) Eos % (Auto) Baso % (Auto) Lymph # (Auto) Burnett # (Auto) Eos # (Auto) Baso # (Auto) Abs Immat Gran (auto) Absolute Neuts (auto) Absolute Nucleated RBC Nucleated RBC % (auto) Sodium 130 L Potassium 3.4 Chloride 87 L Carbon Dioxide 29 Anion Gap 17 BUN 8 L Creatinine 0.79 Estim Creat Clear Calc 100.6 Estimated GFR > 60 Random Glucose 127 H Calcium 7.6 L D Magnesium 1.4 L* Total Bilirubin 2.9 H Direct Bilirubin 2.2 H AST 161 H ALT 50 H Alkaline Phosphatase 185 H Total Protein 6.2 L Albumin 2.8 L Urine Color Urine Appearance Urine pH Ur Specific [place] Urine Protein Urine Glucose (UA) Urine Ketones Urine Blood Urine Nitrite Ur Leukocyte Esterase Urine RBC Urine WBC Ur Squamous Epith Cells Urine Bacteria Urine Opiates Screen Ur Barbiturates Screen Ur Phencyclidine Scrn Ur Amphetamines Screen U Benzodiazepines Scrn Urine Cocaine Screen U Marijuana (THC) Screen Microbiology Microbiology Results: Microbiology 05/08/21 18:07 Urine Culture - Preliminary Urine clean catch - Urine yadav top No growth to date. Quality Stroke Does the patient have a stroke diagnosis?: No VTE Prior VTE?: No VTE Risk Level:: Medical - moderate - high VTE Device Contraindication: Treatment Not Indicated VTE Drug Contraindication: N/A - Med Ordered Assessment and Plan (1) Alcohol withdrawal: Status: Acute (2) Alcohol abuse: Status: Acute (3) Hypomagnesemia: Status: Acute (4) Hyponatremia: Status: Acute (5) Transaminitis: Status: Acute Assessment and Plan: A 59 years old male with PMH of COPD, alcohol abuse with history of DTs presents to the hospital with 2 days history of abdominal pain, nausea and vomiting. Alcohol abuse Alcohol withdrawal High risk for DTs with previous history Continue phenobarbital protocol To IV thiamine, folic acid and multivitamins To g continue et care team involved Advised total absence from alcohol Hypomagnesemia mg 1.4 this morning Replacement given, to monitor Hyponatremia Mild, secondary to vomiting Sodium to 130 Change IV fluid 2.9 sodium chloride Transaminitis From alcohol abuse CT abdomen negative for any acute events Trending down, continue to monitor the DVT PPX Xarelto
[2021-05-09] MEDS: Metoprolol Tartrate 50 MG TABLET PO (12:52)
--- NOTE | 2021-05-09 16:29 | MHC.CARE ---
CARE team consulted for pt due to reported c/o ETOH. CARE team met with pt briefly to review resources and options. Pt reported he was not feeling well ie dizziness, shakiness and nauseous. Pt was open to further discussion from a volleyball assistant coach when feeling better. Pt was given some resources for review and pt will discuss with his medical provider on the medical floor regarding what his medical issues are and how this will impact his options. CARE to refer pt to [facility] later tonight.
--- NOTE | 2021-05-09 18:46 | PC.NURSE ---
Overnight last night RN reported pt had 75ml concentrated urine overnight. Today from 7a-3p pt had 200ml concentrated urine. MD aware - to continue NS at 80ml/hr and monitor
[2021-05-09] MEDS: 0.9 % Sodium Chloride 500 ML IV (22:02)
--- NOTE | 2021-05-09 22:15 | PC.NURSE ---
P: Hypotension I: Assessed patient, notified MD, administered IV bolus E: Upon administration of 21:00 medications, BP 91/64. Pt states he does feel dizziness upon ambulation but asymptomatic when at rest. MD made aware, new order for 0.9% NS 500ml bolus. 21:00 dose of Metoprolol and pheno held per protocol. Upon reassessment patients BP 110/71. Ok to now give Pheno per MD. Will continue monitor closely, maintenance fluids running at 80ml/hr.
[2021-05-10 03:45] VITALS: BP 107/67; PULSE 101; RESP 18; TEMP 36.6; O2SAT 97
[2021-05-10] MEDS: 0.9 % Sodium Chloride 1,000 ML 80 ML IVCONT (04:29)
[2021-05-10 06:12] LABS: Hematocrit 22.5 % (42-52); Hemoglobin 7.8 g/dl (14.0-18.0); Mean Corpuscular HGB Conc 34.7 g/dl (31.0-36.0); Mean Corpuscular Hemoglobin 33.1 pg (27.0-33.0); Mean Corpuscular Volume 95.3 fL (80-98); Mean Platelet Volume 10.8 fL (9.4-12.4); NRBC Pct Auto 0.7 /100WBC (0.0-0.2); Platelet Count 293 X10*3/uL (160-400); Red Blood Count 2.36 X10*6/uL (4.60-5.80); Red Cell Distribution Width 14.9 % (11.0-16.0); White Blood Count 7.3 X10*3/uL (4.8-10.8)
[2021-05-10 06:52] LABS: Anion Gap 12 (12-20); Blood Urea Nitrogen 5 mg/dL (9-16); Calcium 7.3 mg/dL (8.4-10.2); Carbon Dioxide 28 mmol/L (22-29); Chloride 95 mmol/L (96-108); Creatinine Clr Calc Pharmacy 118.7; Estimated Glomerular Filt Rate > 60; Glucose Random 104 mg/dL (60-115); Sodium 132 mmol/L (135-145)
[2021-05-10 07:55] VITALS: BP 110/75; PULSE 96; RESP 18; TEMP 37; O2SAT 97
[2021-05-10 08:47] LABS: Alanine Aminotransferase 42 U/L (0-40); Albumin Level 2.3 g/dL (3.5-5.0); Alkaline Phosphatase 156 U/L (39-117); Aspartate Amino Transferase 114 U/L (5-37); Bilirubin Direct 1.8 mg/dL (0.0-0.5); Bilirubin Total 2.2 mg/dL (0.0-1.0); Magnesium 1.6 mg/dL (1.6-2.6); Total Protein 5.1 g/dL (6.5-8.0)
[2021-05-10] MEDS: Thiamine HCL 200 MG/2 ML VIAL 100 MG IVPUSH (09:47)
[2021-05-10] MEDS: Rivaroxaban 10 MG TABLET PO (09:48)
[2021-05-10] MEDS: Folic Acid 1 MG TABLET PO (09:48)
[2021-05-10] MEDS: PHENobarbitaL 15 MG TABLET 45 MG PO ×2 (09:48→21:33)
[2021-05-10] MEDS: Magnesium Oxide 400 MG TABLET PO ×2 (09:48→17:13)
[2021-05-10] MEDS: Multivitamin TABLET 1 TAB PO (09:48)
[2021-05-10] MEDS: Metoprolol Tartrate 50 MG TABLET PO (09:48)
[2021-05-10] MEDS: Potassium Chloride Packet 20 MEQ PACKET 40 MEQ PO (10:12)
--- NOTE | 2021-05-10 11:41 | MHC.RECOVSUP ---
Recovery Support note: Patient is a 61 year old Dominican speaking male who presented to [facility] due to symptoms of alcohol withdrawal. Patient reports drinking about a pint of whiskey a day. Patient states he was doing well and staying sober for 7 weeks however he found it difficult to maintain sobriety while his was actively drinking. Patient reports his was recently hospitalized due to issues related to her alcohol use and he believes that she will stop drinking as well. Patient reports his has removed all of the alcohol from their home while he has been hospitalized. Patient reports during the 7 weeks he was able to stay busy by working around the yard and spending time outside. Patient reports he is ready to start living sober again and that he does not want to continue damaging his body through alcoholism. Discussed AA and IOP with patient. Patient is receptive to receiving information on these resources. Encouraged patient to reach out to family and friends for support as needed. Discussed case with patient's RN.
[2021-05-10 12:00] VITALS: BP 125/80; PULSE 94; RESP 20; TEMP 36.4; O2SAT 99
--- NOTE | 2021-05-10 14:12 | HO.PM.IMPN ---
Subjective Subjective Date of Service: 05/10/21 Interval History: the patient was seen and evaluated this morning Improving on daily basis couple list dribbles and more steady today Generally weak per the nurses and unable to take care of self Denies any fever, chills or shortness of breath No reported other overnight events. Review of Systems No fever, chills but reports generalized weakness and improved with his shakiness No chest pain, palpitation No shortness of breath or coughing Abdominal pain improved No urinary symptoms No any rash or wounds Physical Exam Vital Signs: Vital Signs: Last Vital Signs Temp 97.5 F 05/10/21 12:00 Pulse 94 05/10/21 12:00 Resp 20 05/10/21 12:00 BP 125/80 05/10/21 12:00 Pulse Ox 99 05/10/21 12:00 Body Mass Index 24.0 Const: Other: Constitutional : Alert, oriented to self and place, mildly anxious Neck : Normal inspection, Supple Cardiovascular : RRR, S1 S2, no lower extremity edema Respiratory : Good bilateral air entry, no crackles, wheezes or rhonchi Gastrointestinal: soft, lax, Normal bowel sounds, Non tender Skin : Warm/Dry, No rash Neurological : Alert & oriented to self and place, reagan improving, No focal deficit Objective Data Current Medications Generic Name Dose Route Start Last Admin Trade Name Clarence PRN Reason Stop Dose Admin Acetaminophen 650 mg 05/08/21 18:17 Acetaminophen 325 Mg Tablet PO Q6H PRN Pain, Mild (Pain Scale 1-3) Folic Acid 1 mg 05/09/21 09:00 05/10/21 09:48 Folic Acid 1 Mg Tablet PO 1 mg DAILY [facility] Administration Sodium Chloride 1,000 mls @ 80 mls/hr 05/09/21 08:00 05/10/21 10:09 Ns IVCONT 05/10/21 20:00 Not Given .[id number] [facility] Magnesium Oxide 400 mg 05/09/21 08:30 05/10/21 09:48 Magnesium Oxide 400 Mg Tablet PO 400 mg BIDPC [facility] Administration Medication 1 each 05/08/21 12:48 No Benzodiazepines MISCELLANE DAILY [facility] Metoprolol Tartrate 50 mg 05/09/21 12:35 05/10/21 09:48 Metoprolol Tartrate 50 Mg Tablet PO 50 mg BID [facility] Administration Protocol Multivitamins/Vitamin C 1 tab 05/09/21 09:00 05/10/21 09:48 Multivitamin Tablet PO 1 tab DAILY [facility] Administration Ondansetron HCl 4 mg 05/08/21 18:17 Ondansetron Hcl 4 Mg/2 Ml Vial IVPUSH Q8H PRN Nausea and Vomiting Pharmacy Consult 1 each 05/08/21 14:14 Consult Rx Perform Med Rec MISCELLANE ONCE PRN Consult order Phenobarbital 45 mg 05/09/21 09:00 05/10/21 09:48 Phenobarbital 15 Mg Tablet PO 05/10/21 21:01 45 mg BID [facility] Administration Protocol Phenobarbital 30 mg 05/11/21 09:00 Phenobarbital 30 Mg Tablet PO 05/12/21 21:01 BID [facility]QU[facility] Protocol Phenobarbital 30 mg 05/13/21 09:00 Phenobarbital 30 Mg Tablet PO 05/14/21 09:01 DAILY [facility] Protocol Rivaroxaban 10 mg 05/09/21 09:00 05/10/21 09:48 Rivaroxaban 10 Mg Tablet PO 10 mg DAILY [facility] Administration Sodium Chloride 3 ml 05/08/21 18:17 05/10/21 09:55 0.9 % Sodium Chloride Flush 3 Ml Syringe IVFLUSH Not Given QSHIFT [facility] Thiamine HCl 100 mg 05/09/21 09:00 05/10/21 09:47 Thiamine Hcl 200 Mg/2 Ml Vial IVPUSH 100 mg DAILY [facility] Administration Labs CBC & Chem 7: 05/10/21 05:07 05/10/21 05:07 Labs: Laboratory Results - last 24 hr 05/10/21 05/10/21 05:07 05:07 WBC 7.3 RBC 2.36 L Hgb 7.8 L Hct 22.5 L MCV 95.3 MCH 33.1 H MCHC 34.7 RDW 14.9 Plt Count 293 MPV 10.8 Absolute Nucleated RBC 0.050 H Nucleated RBC % (auto) 0.7 H Sodium 132 L Potassium 3.0 L Chloride 95 L Carbon Dioxide 28 Anion Gap 12 BUN 5 L Creatinine 0.67 Estim Creat Clear Calc 118.7 Estimated GFR > 60 Random Glucose 104 Calcium 7.3 L Magnesium 1.6 Total Bilirubin 2.2 H Direct Bilirubin 1.8 H AST 114 H ALT 42 H Alkaline Phosphatase 156 H Total Protein 5.1 L Albumin 2.3 L Microbiology Microbiology Results: Microbiology 05/08/21 18:07 Urine Culture - Final Urine clean catch - Urine yadav top Quality Stroke Does the patient have a stroke diagnosis?: No VTE Prior VTE?: No VTE Risk Level:: Medical - moderate - high VTE Device Contraindication: Treatment Not Indicated VTE Drug Contraindication: N/A - Med Ordered Assessment and Plan (1) Alcohol withdrawal: Status: Acute (2) Alcohol abuse: Status: Acute (3) Hypomagnesemia: Status: Acute (4) Hyponatremia: Status: Acute (5) Transaminitis: Status: Acute Assessment and Plan: A 59 years old male with PMH of COPD, alcohol abuse with history of DTs presents to the hospital with 2 days history of abdominal pain, nausea and vomiting. Alcohol abuse Alcohol withdrawal High risk for DTs with previous history Continue phenobarbital protocol Continue IV thiamine, folic acid and multivitamins care team involved Advised total absence from alcohol Acute on chronic anemia Hemoglobin dropped to 7.8 this morning No clear source of bleeding Negative occult blood To check iron stores Could be secondary to dilution from IV fluids Will continue to monitor Hypomagnesemia mg 1.6this morning Started on p.o. magnesium Hyponatremia Mild, secondary to vomiting Sodium to 132 Discontinue IVF Transaminitis From alcohol abuse CT abdomen negative for any acute events Trending down, continue to monitor the DVT PPX Xarelto
[2021-05-10 14:35] LABS: Iron 72 mcg/dL (45-160); Percent Iron Saturation 69 % (15-50); Total Iron Binding Capacity 105 mcg/dL (228-428); Unsaturated Iron Binding 33 ug/dL
[2021-05-10 15:31] VITALS: BP 91/64; PULSE 87; RESP 19; TEMP 35.9; O2SAT 98
[2021-05-10] MEDS: 0.9 % Sodium Chloride Flush 3 ML SYRINGE IVFLUSH ×2 (17:14→21:34)
--- NOTE | 2021-05-10 19:31 | MHC.RECOVSUP ---
? Reason for consult Recovery support o Current location: [facility] o Identified substance use concern: Alcohol - Support ? Intervention: o ATS bed search started/completed/in process o MAT started or to be started o Community resources provided o Harm reduction discussion ? Plan: o Patient to follow up with [facility] after discharge ? Additional information: Met with patient.. Talk [place] reduction.. Patient opened to trying something different.. I supplied Patient with resources places he could get the support he may need to move forward
[2021-05-10 19:49] VITALS: BP 91/65; PULSE 75; RESP 19; TEMP 36.4; O2SAT 97
[2021-05-10 21:34] VITALS: BP 100/77; PULSE 98
[2021-05-11] VITALS (11 sets, daily range): BP systolic 92–123; BP diastolic 54–80; PULSE 87–108; RESP 7–18; TEMP 36.1–37.1; O2SAT 98–99
[2021-05-11 05:38] LABS: Hematocrit 22.6 % (42-52); Hemoglobin 7.9 g/dl (14.0-18.0); Mean Corpuscular Hemoglobin 33.5 pg (27.0-33.0); Mean Corpuscular Volume 95.8 fL (80-98); Mean Platelet Volume 10.3 fL (9.4-12.4); NRBC Pct Auto 2.9 /100WBC (0.0-0.2); Platelet Count 312 X10*3/uL (160-400); Red Blood Count 2.36 X10*6/uL (4.60-5.80); Red Cell Distribution Width 15.4 % (11.0-16.0); White Blood Count 9.3 X10*3/uL (4.8-10.8)
[2021-05-11 06:09] LABS: Anion Gap 11 (12-20); Blood Urea Nitrogen 5 mg/dL (9-16); Calcium 7.7 mg/dL (8.4-10.2); Carbon Dioxide 28 mmol/L (22-29); Chloride 96 mmol/L (96-108); Creatinine Clr Calc Pharmacy 116.9; Estimated Glomerular Filt Rate > 60; Glucose Random 97 mg/dL (60-115); Potassium 3.4 mmol/L (3.3-5.1); Sodium 132 mmol/L (135-145)
[2021-05-11] MEDS: 0.9 % Sodium Chloride Flush 3 ML SYRINGE IVFLUSH ×2 (08:15→16:57)
[2021-05-11] MEDS: PHENobarbitaL 30 MG TABLET PO ×2 (08:19→20:14)
[2021-05-11] MEDS: Magnesium Oxide 400 MG TABLET PO ×2 (08:19→16:57)
[2021-05-11] MEDS: Folic Acid 1 MG TABLET PO (08:19)
[2021-05-11] MEDS: Multivitamin TABLET 1 TAB PO (08:20)
[2021-05-11] MEDS: Rivaroxaban 10 MG TABLET PO (08:20)
[2021-05-11] MEDS: Thiamine HCL 200 MG/2 ML VIAL 100 MG IVPUSH (08:20)
[2021-05-11] MEDS: Metoprolol Tartrate 50 MG TABLET PO ×2 (08:20→20:13)
[2021-05-11] MEDS: Acetaminophen 325 MG TABLET 650 MG PO (11:35)
--- NOTE | 2021-05-11 15:00 | MHC.CM.PN ---
Male 61 DX AB pain N/v DP is STR per PT eval. Met with Pt and for rehab preferences.. A referral has been sent to [facility]. Pt will transport via S. CM will follow. GI consult pending.
--- NOTE | 2021-05-11 15:49 | P.PNIM_ITS ---
Subjective Subjective Date of Service: 05/11/21 Interval History: the patient was seen and evaluated this morning Improving decrease tremors, feels more strict in's and decrease nausea Generally weak and unable to take care of self Denies any fever, chills or shortness of breath No reported other overnight events. Review of Systems No fever, chills but reports generalized weakness and improved with his shakiness No chest pain, palpitation No shortness of breath or coughing Abdominal pain improved No urinary symptoms No any rash or wounds Physical Exam Vital Signs: Vital Signs: Last Vital Signs Temp 97 F 05/11/21 15:06 Pulse 94 05/11/21 15:06 Resp 18 05/11/21 15:06 BP 111/66 05/11/21 15:06 Pulse Ox 99 05/11/21 15:06 Body Mass Index 24.0 Const: Other: Constitutional : Alert, oriented to self and place, mildly anxious Neck : Normal inspection, Supple Cardiovascular : RRR, S1 S2, no lower extremity edema Respiratory : Good bilateral air entry, no crackles, wheezes or rhonchi Gastrointestinal: soft, lax, Normal bowel sounds, Non tender Skin : Warm/Dry, No rash Neurological : Alert & oriented to self and place, reagan improving, No focal deficit Objective Data Current Medications Generic Name Dose Route Start Last Admin Trade Name Gentryq PRN Reason Stop Dose Admin Acetaminophen 650 mg 05/08/21 18:17 05/11/21 11:35 Acetaminophen 325 Mg Tablet PO 650 mg Q6H PRN Administration Pain, Mild (Pain Scale 1-3) Folic Acid 1 mg 05/09/21 09:00 05/11/21 08:19 Folic Acid 1 Mg Tablet PO 1 mg DAILY [facility] Administration Magnesium Oxide 400 mg 05/09/21 08:30 05/11/21 08:19 Magnesium Oxide 400 Mg Tablet PO 400 mg BIDPC [facility] Administration Medication 1 each 05/08/21 12:48 No Benzodiazepines MISCELLANE DAILY [facility] Metoprolol Tartrate 50 mg 05/09/21 12:35 05/11/21 08:20 Metoprolol Tartrate 50 Mg Tablet PO 50 mg BID [facility] Administration Protocol Multivitamins/Vitamin C 1 tab 05/09/21 09:00 05/11/21 08:20 Multivitamin Tablet PO 1 tab DAILY [facility] Administration Ondansetron HCl 4 mg 05/08/21 18:17 Ondansetron Hcl 4 Mg/2 Ml Vial IVPUSH Q8H PRN Nausea and Vomiting Pharmacy Consult 1 each 05/08/21 14:14 Consult Rx Perform Med Rec MISCELLANE ONCE PRN Consult order Phenobarbital 30 mg 05/11/21 09:00 05/11/21 08:19 Phenobarbital 30 Mg Tablet PO 05/12/21 21:01 30 mg BID [facility] Administration Protocol Phenobarbital 30 mg 05/13/21 09:00 Phenobarbital 30 Mg Tablet PO 05/14/21 09:01 DAILY [facility] Protocol Rivaroxaban 10 mg 05/09/21 09:00 05/11/21 08:20 Rivaroxaban 10 Mg Tablet PO 10 mg DAILY [facility] Administration Sodium Chloride 3 ml 05/08/21 18:17 05/11/21 08:15 0.9 % Sodium Chloride Flush 3 Ml Syringe IVFLUSH 3 ml QSHIFT [facility] Administration Thiamine HCl 100 mg 05/09/21 09:00 05/11/21 08:20 Thiamine Hcl 200 Mg/2 Ml Vial IVPUSH 100 mg DAILY [facility] Administration Labs CBC & Chem 7: 05/11/21 05:19 05/11/21 05:19 Labs: Laboratory Results - last 24 hr 05/11/21 05/11/21 05:19 05:19 WBC 9.3 RBC 2.36 L Hgb 7.9 L Hct 22.6 L MCV 95.8 MCH 33.5 H MCHC 35.0 RDW 15.4 Plt Count 312 MPV 10.3 Absolute Nucleated RBC 0.270 H Nucleated RBC % (auto) 2.9 H Sodium 132 L Potassium 3.4 Chloride 96 Carbon Dioxide 28 Anion Gap 11 L BUN 5 L Creatinine 0.68 Estim Creat Clear Calc 116.9 Estimated GFR > 60 Random Glucose 97 Calcium 7.7 L Quality Stroke Does the patient have a stroke diagnosis?: No VTE Prior VTE?: No VTE Risk Level:: Medical - moderate - high VTE Device Contraindication: Treatment Not Indicated VTE Drug Contraindication: N/A - Med Ordered Assessment and Plan (1) Alcohol withdrawal: Status: Acute (2) Alcohol abuse: Status: Acute (3) Hypomagnesemia: Status: Acute (4) Hyponatremia: Status: Acute (5) Transaminitis: Status: Acute Assessment and Plan: A 59 years old male with PMH of COPD, alcohol abuse with history of DTs presents to the hospital with 2 days history of abdominal pain, nausea and vomiting. Alcohol abuse Alcohol withdrawal High risk for DTs with previous history Continue phenobarbital protocol Continue IV thiamine, folic acid and multivitamins care team involved Advised total absence from alcohol Acute on chronic anemia Hemoglobin dropped to 7.8 this morning No clear source of bleeding Negative occult blood secondary to chronic alcoholism Will continue to monitor Hypomagnesemia List with needs to 1.6 Continue p.o. magnesium Hyponatremia Mild, secondary to vomiting Sodium to 132 Discontinue IVF Transaminitis From alcohol abuse CT abdomen negative for any acute events Trending down, continue to monitor the DVT PPX Xarelto
[2021-05-12] VITALS (10 sets, daily range): BP systolic 101–119; BP diastolic 62–77; PULSE 80–99; RESP 16–20; TEMP 36.2–37.1; O2SAT 97–99
[2021-05-12] MEDS: 0.9 % Sodium Chloride Flush 3 ML SYRINGE IVFLUSH ×4 (01:27→20:14)
[2021-05-12] MEDS: Multivitamin TABLET 1 TAB PO (09:16)
[2021-05-12] MEDS: Magnesium Oxide 400 MG TABLET PO ×2 (09:16→16:57)
[2021-05-12] MEDS: PHENobarbitaL 30 MG TABLET PO ×2 (09:16→20:13)
[2021-05-12] MEDS: Folic Acid 1 MG TABLET PO (09:16)
[2021-05-12] MEDS: Thiamine HCL 200 MG/2 ML VIAL 100 MG IVPUSH (09:17)
[2021-05-12] MEDS: Rivaroxaban 10 MG TABLET PO (09:17)
[2021-05-12] MEDS: Metoprolol Tartrate 50 MG TABLET PO ×2 (09:19→20:13)
[2021-05-12] MEDS: methylPREDNISolone Sod Succ 40 MG/ML VIAL IVPUSH (13:00)
[2021-05-12] MEDS: Albuterol/Iprat 2.5/0.5MG 3 ML AMPUL.NEB INHALE ×2 (13:06→19:56)
--- NOTE | 2021-05-12 14:11 | HO.PM.IMPN ---
Subjective Subjective Date of Service: 05/12/21 Interval History: the patient was seen and evaluated this morning Significantly improved tremors, decrease nausea Generally weak and unable to take care of self, will need placement Denies any fever, chills or shortness of breath No reported other overnight events. Review of Systems No fever, chills but reports generalized weakness No chest pain, palpitation No shortness of breath or coughing Abdominal pain improved No urinary symptoms No any rash or wounds Physical Exam Vital Signs: Vital Signs: Last Vital Signs Temp 98.5 F 05/12/21 11:10 Pulse 89 05/12/21 13:11 Resp 20 05/12/21 11:10 BP 101/72 05/12/21 11:10 Pulse Ox 97 05/12/21 11:10 Body Mass Index 24.0 Const: Other: Constitutional : Alert, oriented to self and place, mildly anxious Neck : Normal inspection, Supple Cardiovascular : RRR, S1 S2, no lower extremity edema Respiratory : Good bilateral air entry, no crackles, wheezes or rhonchi Gastrointestinal: soft, lax, Normal bowel sounds, Non tender Skin : Warm/Dry, No rash Neurological : Alert & oriented, No focal deficit Objective Data Current Medications Generic Name Dose Route Start Last Admin Trade Name Freq PRN Reason Stop Dose Admin Acetaminophen 650 mg 05/08/21 18:17 05/11/21 11:35 Acetaminophen 325 Mg Tablet PO 650 mg Q6H PRN Administration Pain, Mild (Pain Scale 1-3) Albuterol/Ipratropium 3 ml 05/12/21 11:00 05/12/21 13:06 Albuterol/Iprat 2.5/0.5mg 3 Ml Ampul.Neb INHALE 3 ml RQ6H WHILE AWAKE [facility] Administration Folic Acid 1 mg 05/09/21 09:00 05/12/21 09:16 Folic Acid 1 Mg Tablet PO 1 mg DAILY [facility] Administration Magnesium Oxide 400 mg 05/09/21 08:30 05/12/21 09:16 Magnesium Oxide 400 Mg Tablet PO 400 mg BIDPC [facility] Administration Medication 1 each 05/08/21 12:48 No Benzodiazepines MISCELLANE DAILY [facility] Methylprednisolone Sodium Succinate 40 mg 05/12/21 11:00 05/12/21 13:00 Methylprednisolone Sod Succ 40 Mg/Ml Vial IVPUSH 40 mg Q24H [facility] Administration Metoprolol Tartrate 50 mg 05/09/21 12:35 05/12/21 09:19 Metoprolol Tartrate 50 Mg Tablet PO 50 mg BID [facility] Administration Protocol Multivitamins/Vitamin C 1 tab 05/09/21 09:00 05/12/21 09:16 Multivitamin Tablet PO 1 tab DAILY [facility] Administration Ondansetron HCl 4 mg 05/08/21 18:17 Ondansetron Hcl 4 Mg/2 Ml Vial IVPUSH Q8H PRN Nausea and Vomiting Pharmacy Consult 1 each 05/08/21 14:14 Consult Rx Perform Med Rec MISCELLANE ONCE PRN Consult order Phenobarbital 30 mg 05/11/21 09:00 05/12/21 09:16 Phenobarbital 30 Mg Tablet PO 05/12/21 21:01 30 mg BID [facility] Administration Protocol Phenobarbital 30 mg 05/13/21 09:00 Phenobarbital 30 Mg Tablet PO 05/14/21 09:01 DAILY [facility] Protocol Rivaroxaban 10 mg 05/09/21 09:00 05/12/21 09:17 Rivaroxaban 10 Mg Tablet PO 10 mg DAILY [facility] Administration Sodium Chloride 3 ml 05/08/21 18:17 05/12/21 09:16 0.9 % Sodium Chloride Flush 3 Ml Syringe IVFLUSH 3 ml QSHIFT [facility] Administration Thiamine HCl 100 mg 05/09/21 09:00 05/12/21 09:17 Thiamine Hcl 200 Mg/2 Ml Vial IVPUSH 100 mg DAILY [facility] Administration Labs CBC & Chem 7: 05/11/21 05:19 05/11/21 05:19 Labs: Laboratory Results - last 24 hr 05/11/21 05:19 Smear Path Review SEE NOTE Quality Stroke Does the patient have a stroke diagnosis?: No VTE Prior VTE?: No VTE Risk Level:: Medical - moderate - high VTE Device Contraindication: Treatment Not Indicated VTE Drug Contraindication: N/A - Med Ordered Assessment and Plan (1) Alcohol withdrawal: Status: Acute (2) Alcohol abuse: Status: Acute (3) Hypomagnesemia: Status: Acute (4) Hyponatremia: Status: Acute (5) Transaminitis: Status: Acute Assessment and Plan: A 59 years old male with PMH of COPD, alcohol abuse with history of DTs presents to the hospital with 2 days history of abdominal pain, nausea and vomiting. Alcohol abuse Alcohol withdrawal Continue phenobarbital protocol Continue IV thiamine, folic acid and multivitamins care team involved Advised total absence from alcohol Acute on chronic anemia Hemoglobin stable around 7.8 Seems to be secondary to chronic alcoholism No clear source of bleeding Negative occult blood Will continue to monitor Hypomagnesemia Magnesium improved 1.6 Continue p.o. magnesium Hyponatremia Mild, secondary to vomiting Sodium to 132 Discontinue IVF Transaminitis From alcohol abuse CT abdomen negative for any acute events Trending down, continue to monitor the DVT PPX Xarelto Dispo, pending SNF placement
--- NOTE | 2021-05-12 16:07 | MHC.CM.PN ---
Patient is accepted @ [facility]. He will discharge tomorrow. Transportation will be booked tomorrow.
[2021-05-13 04:00] VITALS: BP 120/78; PULSE 84; RESP 18; TEMP 36.6; O2SAT 99
[2021-05-13 07:15] VITALS: BP 101/66; PULSE 86; RESP 18; TEMP 36.9; O2SAT 98
[2021-05-13] MEDS: Albuterol/Iprat 2.5/0.5MG 3 ML AMPUL.NEB INHALE ×2 (07:49→15:05)
[2021-05-13 07:50] VITALS: PULSE 89; O2SAT 98
[2021-05-13] MEDS: Thiamine HCL 200 MG/2 ML VIAL 100 MG IVPUSH (08:16)
[2021-05-13] MEDS: 0.9 % Sodium Chloride Flush 3 ML SYRINGE IVFLUSH (08:16)
[2021-05-13 08:17] VITALS: BP 101/60; PULSE 86
[2021-05-13] MEDS: Multivitamin TABLET 1 TAB PO (08:17)
[2021-05-13] MEDS: Metoprolol Tartrate 50 MG TABLET PO (08:17)
[2021-05-13] MEDS: PHENobarbitaL 30 MG TABLET PO (08:17)
[2021-05-13] MEDS: Folic Acid 1 MG TABLET PO (08:18)
[2021-05-13] MEDS: Magnesium Oxide 400 MG TABLET PO (08:18)
[2021-05-13] MEDS: Rivaroxaban 10 MG TABLET PO (08:18)
[2021-05-13] MEDS: methylPREDNISolone Sod Succ 40 MG/ML VIAL IVPUSH (10:08)
[2021-05-13 11:20] VITALS: BP 108/73; PULSE 89; RESP 18; TEMP 36.5; O2SAT 97
[2021-05-13 12:04] LABS: COVID-19 Test Negative (Negative); IDNOW Serial# 9DD0AD1C
--- NOTE | 2021-05-13 13:22 | PM.DS ---
DS: Providers Provider Date of Service: 05/13/21 Date of admission: 05/08/21 14:49 Primary care physician: Jone Aly MD Consults: 05/09/21 12:56 Consult to Care Team Routine Comment: Reason for consultation: alcohol cessation information DS: Diagnosis Discharge Diagnosis (1) Alcohol withdrawal: Status: Acute (2) Alcohol abuse: Status: Acute (3) Hypomagnesemia: Status: Acute (4) Hyponatremia: Status: Acute (5) Transaminitis: Status: Acute DS: Medications Discharge Medications Home Medications: Home Medications Medication Instructions Recorded Confirmed metoprolol tartrate 50 mg PO BID 12/23/20 05/08/21 DS: Summary Hospital Course Hospital Course: Patient was admitted with alcohol dependence with withdrawal in high risk patient with history of delirium tremens complicated by hypomagnesemia, hyponatremia, and alcoholic gastritis. He was treated with phenobarbital, thiamine, folic acid, multivitamins, he was given magnesium supplement, IV hydration. His withdrawal symptoms slowly improved. At time of discharge he still has some mild tremor but is otherwise feeling much better. His nausea vomiting have resolved. His magnesium has improved. His liver function tests remained stable. Patient was noted to be fairly debilitated and requiring custodial facility for short-term rehab. Time Spent with Patient Time attestation: Total time spent providing and/or coordinating discharge services: Discharge coordination time: Greater than 30 minutes Quality: Stroke Does the patient have a stroke diagnosis?: No Physical Exam Vital Signs: Vital Signs: Last Vital Signs Temp 97.7 F 05/13/21 11:20 Pulse 89 05/13/21 11:20 Resp 18 05/13/21 11:20 BP 108/73 05/13/21 11:20 Pulse Ox 97 05/13/21 11:20 Body Mass Index 24.0 General: AO X 3, no acute distress Resp: CTA bilateral CVS: S1,S2,RRR GI: soft, non tender, non distended Neuro: motor grossly intact, tremor Psych: appropriate affect DS: Data Data Completed and Pending Completed studies during hospitalization [Text1]: Procedures Detoxification Services for Substance Abuse Treatment (12/23/20) Labs on day of discharge: Laboratory Results - last 24 hr 05/13/21 11:37 COVID-19 ([facility]) Negative COVID-19 Clin Com See Note Discharge Plan Discharge Patient Disposition: Xfer SNF Discharge Diagnosis: alcohol withdrawl Referrals: Jone Aly MD [Primary Care Provider] - 1 Week Discharge Medications: Continued metoprolol tartrate 50 mg Tablet 50 mg PO BID RF: 0 Discharge Orders: Discharge Order (Routine); Ordered 05/13/21 Ordered By: Maykel Dacosta Diet: advance to usual diet Activity on Discharge: As tolerated Stand Alone Forms: Patient Portal Discharge page Care Plan Goals: Recovery Health Concerns: Alcohol dependence Plan of Treatment: Avoid alcohol Assessment: See above
--- NOTE | 2021-05-13 15:06 | MHC.CM.PN ---
Male 61 is discharged today to [facility] via BLS. DC info sent. Notified facility pick from [facility] is 4PM today. Spoke with Flavia. She stated that she would let supervision know transfer time.
[2021-05-13 15:07] VITALS: PULSE 81; O2SAT 95
--- NOTE | 2021-05-13 15:58 | PC.NURSE ---
Attempted to call report for patient going to [facility] in [place] [address]. Was told both times a nurse is unavailable and will call me back for report. I explained the patient would be on their way in a few minutes. Patient was picked up by wheelchair EMS and driven to facility.
== END 2021-05-13 15:52 | disposition skilled nursing facility (03) | DRG 426 ==
LOC: HO.ED 14:15 → HO.EDOVER 15:06 → HO.IMC 19:17
PROVIDERS: Admitting Provider Student in an Organized Health Care Education/Training Program; Emergency Provider Emergency Medicine; PCP Internal Medicine; Visit Provider Internal Medicine
DX: E87.1 Hypo-osmolality and hyponatremia (principal); F10.231 Alcohol dependence with withdrawal delirium; E83.42 Hypomagnesemia; F10.230 Alcohol dependence with withdrawal, uncomplicated; Z20.822 Contact with and (suspected) exposure to COVID-19
CPT/HCPCS: 36415; 74177; 80048; 80076; 80307; 81001; 81003; 82077; 82272; 83540; 83690; 83735; 85025; 85027; 87086; 87635; 94640; 97110; 97116; 97162; 97530; 99285; J2060; J2405; J2560; J2920; J3411; J3475; Q9967

== ENCOUNTER 2021-07-22 21:27 | Inpatient (IN) | payer MEDICAID, SELFPAY ==
--- NOTE | ~2021-07-22 | CT_ITS ---
EXAMINATION: CT HEAD WITHOUT CONTRAST CLINICAL INFORMATION: Unresponsive COMPARISON: 12/23/2020 TECHNIQUE: Contiguous axial imaging was performed from the skull base to vertex without intravenous administration of contrast. This CT examination was performed using dose optimization techniques as appropriate, variously including the following: *Automated exposure control *Adjustment of mA and/or kV according to patient size (this includes techniques or standardized protocols for targeted exams where dose is matched to indication/reason for exam; i.e. extremities or head) *Use of iterative reconstruction technique DLP: 721 mGy-cm FINDINGS: There is no evidence of acute intracranial hemorrhage or territorial infarction. No abnormal mass effect or midline shift is seen. Chandler to white matter differentiation is well preserved. No extra-axial fluid collections are identified. The ventricles are normal in size. There is no abnormal attenuation within the brain parenchyma. The osseous structures and soft tissues are normal. Mild ethmoid and maxillary sinus mucosal thickening. A tiny right maxillary sinus air-fluid level. Mastoid air cells are clear. CT/CT head/brain wo con IMPRESSION: No acute intracranial pathology. Sinus disease.
--- NOTE | ~2021-07-22 | XR_ITS ---
EXAMINATION: XR CHEST CLINICAL INFORMATION: Unresponsive COMPARISON: 12/23/2020 TECHNIQUE: Frontal view of the chest was obtained. FINDINGS: No significant abnormality is noted involving the heart, lungs, mediastinum, bony thorax or soft tissues. XR/XR chest 1V IMPRESSION: No acute pulmonary disease.
[2021-07-22 21:37] VITALS: BP 160/80; PULSE 108; O2SAT 95
[2021-07-22 21:40] VITALS: BP 189/106; PULSE 108; RESP 14; TEMP 37.4; O2SAT 97; BMI 28.1
[2021-07-22 21:47] LABS: Glucose, Whole Blood 123 mg/dL (60-115)
--- NOTE | 2021-07-22 21:57 | ECG_ITS ---
Test Reason : SEIZURE Blood Pressure : / mmHG Vent. Rate : 139 BPM Atrial Rate : 139 BPM P-R Int : 116 ms QRS Dur : 086 ms QT Int : 296 ms P-R-T Axes : 074 081 063 degrees QTc Int : [address] & T wave abnormality, consider inferior ischemia Abnormal ECG When compared with ECG of 23-DEC-2020 05:38, ST-T wave changes have developed in inferior leads Referred By: Mahesh Smith Electronically Signed By:STAN CAMARGO
--- NOTE | 2021-07-22 22:02 | ED_ITS ---
HPI - Alcohol General Chief Complaint: ETOH/Substance Use Stated Complaint: etoh/ams Time Seen by Provider: 07/22/21 21:45 Source: patient and EMS Mode of arrival: EMS Limitations: no limitations History of Present Illness HPI narrative: 61-year-old male came in by EMS for evaluation of pain unresponsive after bingeing on alcohol drinking for unknown period of time. This is a 61-year-old male known history of alcohol abuse brought in by EMS after being unresponsive, reportedly by family member patient has been drinking for unknown period of time, patient emergency department is unresponsive, no sign of trauma, patient has tonic-clonic generalized seizure witnessed by ED staff that subcutaneously stopped. No reported trauma or fall or head injury. Related Data Home Medications Medication Instructions Recorded Confirmed atorvastatin 10 mg tablet 10 mg PO DAILY 07/22/21 07/22/21 lorazepam 0.5 mg tablet 0.5 mg PO TID PRN 07/22/21 07/22/21 thiamine HCl (vitamin B1) 100 mg 100 mg PO DAILY 07/22/21 07/22/21 tablet Allergies Allergy/AdvReac Type Severity Reaction Status Date / Time No Known Allergies Allergy Verified 01/14/21 15:54 Review of Systems Review of Systems: All other systems are reviewed and are negative Constitutional: Reports as per HPI and Reports no additional constitutional complaints Eyes: Reports as per HPI and Reports no additional eye complaints Reports system reviewed and no additional complaints, except as documented Cardiovascular: Reports as per HPI and Reports no additional cardiovascular complaints Respiratory: Reports as per HPI and Reports no additional respiratory complaints Gastrointestinal: Reports as per HPI and Reports no additional gastrointestinal complaints Genitourinary: Reports no additional female genitourinary complaints Musculoskeletal: Reports no additional musculoskeletal complaints Skin/Breast: Reports system reviewed and no additional complaints, except as docu Psychiatric: Reports no additional psychiatric complaints Endocrine: Reports no additional endocrine complaints Hematologic/Lymphatic: Reports no additional hematologic/lymphatic complaints Allergic/Immunologic: Reports no additional allergic/immunologic complaints Reports system reviewed and no additional complaints, except as documented and Reports Abnormal speech present PMFSH Past Medical History Medical History Alcohol abuse DTs (delirium tremens) Elevated liver function tests Hypertension Surgical History Hx of colonoscopy No pertinent past surgical history Social History Social History Household Members: Spouse Housing: House Do you presently have visiting nurse or other home services: No Alcohol intake: current Alcohol intake frequency: 3 or more drinks per day Alcohol type: hard liquor Patient Tobacco Use Status: Tobacco use Unknown Second Hand Smoke Exposure: No Advance Directives: No Advance Directives Information Provided: No Advance Directives Date on File: 01/01/21 service: Yes Current occupational status: unemployed Physical Exam Vital Signs: Vital Signs: Last Vital Signs Temp 99.3 F 07/22/21 21:40 Pulse 122 H 07/23/21 03:08 Resp 12 07/23/21 03:08 BP 155/116 H 07/23/21 03:08 Pulse Ox 94 07/23/21 03:08 Body Mass Index 28.1 Vital signs have been reviewed as appeared to be correct. Blood pressure elevated. Heart rate elevated. Respiration rate normal. Temperature normal. Oxygen saturation normal. Appearance: Unresponsive. Head: Normal external exam. Normocephalic. Atraumatic. No Hooper signs noted. No raccoon eyes noted Eyes: PERRLA. EOMI. Conjunctiva and sclera normal. Eyelids normal. Mouth and tongue exam: Bite in the anterior 1/3 of the tongue with mild swelling of the tongue, patent airway no stridor. ENT: TM's Normal. Pharynx normal. Uvula midline. Moist mucous membranes. No trismus noted. No drooling noted. No muffled voice noted. Neck: Normal inspection. Neck supple. FROM. No adenopathy. Thyroid Normal. No meningeal signs. No neck mass noted. CVS: Normal heart rate and rhythm. Heart sound normal. No murmurs noted. Pulses normal throughout. Respiratory: No respiratory distress. Painless inspiration. Breath sounds normal. No wheezes/rales/rhonchi noted. Chest nontender. No accessory muscle usage noted or decreased air movement noted. Abdomen: Soft and nontender. Bowel sounds normal in all 4 quadrants. No distention noted. No organomegaly noted. No visible injury noted. Back: No CVA tenderness. Full range of motion noted. Skin: Skin warm and dry. Normal skin color. Normal skin turgor. No rashes/lesions/lacerations noted. Extremities: No lower extremity edema. Extremities exhibit normal range of motion. Extremities nontender. No motor deficit. No sensory deficit. Reflexes normal. Course Course Course Narrative: Assessment and plan. 61-year-old male with a history of alcohol abuse, patient was not able to keep alcohol in his system today because of vomiting, patient showed signs of alcohol withdrawal, patient witnessed tonic-clonic seizure in the emergency department likely due to alcohol withdrawal, patient was started on phenobarb. Will admit the patient for further monitoring. MDM - Alcohol Lab Data Attestation: I reviewed the patient's lab results. Result diagrams: 07/22/21 22:10 07/22/21 22:10 Labs: Lab Results 07/22/21 07/22/21 07/22/21 Range/Units 21:44 22:10 22:10 WBC 12.0 H (4.8-10.8) X10*3/uL RBC 4.78 D (4.60-5.80) X10*6/uL Hgb 15.7 D (14.0-18.0) g/dl Hct 47.6 D (42-52) % MCV 99.6 H (80-98) fL MCH 32.8 (27.0-33.0) pg MCHC 33.0 (31.0-36.0) g/dl RDW 13.6 (11.0-16.0) % Plt Count 88 L D (160-400) X10*3/uL MPV 11.6 (9.4-12.4) fL Immature Gran % (Auto) 0.3 (0.0-0.4) % Neut % (Auto) 68.4 (45-73) % Lymph % (Auto) 18.8 L (20-40) % [place] % (Auto) 12.3 H (2-11) % Eos % (Auto) 0.0 (0-4) % Baso % (Auto) 0.2 (0-2) % Lymph # (Auto) 2.3 (1.2-4.9) X10*3/uL [place] # (Auto) 1.5 H (0.1-1.2) X10*3/uL Eos # (Auto) 0.0 (0.0-0.4) X10*3/uL Baso # (Auto) 0.0 (0.0-0.2) X10*3/uL Abs Immat Gran (auto) 0.03 (0.00-0.03) X10*3/uL Absolute Neuts (auto) 8.2 (2.0-8.3) X10*3/uL Absolute Nucleated RBC 0.000 (0.0-0.012) X10*3/uL Nucleated RBC % (auto) 0.0 (0.0-0.2) /100WBC Sodium 136 (135-145) mmol/L Potassium 3.8 (3.3-5.1) mmol/L Chloride 89 L (96-108) mmol/L Carbon Dioxide 11 L (22-29) mmol/L Anion Gap 40 H (12-20) BUN 15 D (9-16) mg/dL Creatinine 1.10 (0.5-1.4) mg/dL Estim Creat Clear Calc 76.3 Estimated GFR > 60 POC Glucose 123 H (60-115) mg/dL Random Glucose 148 H D (60-115) mg/dL Calcium 9.4 D (8.4-10.2) mg/dL Total Bilirubin (0.0-1.0) mg/dL Direct Bilirubin (0.0-0.5) mg/dL AST (5-37) U/L ALT (0-40) U/L Alkaline Phosphatase (39-117) U/L B-Natriuretic Peptide (<100) pg/mL Total Protein (6.5-8.0) g/dL Albumin (3.5-5.0) g/dL Lipase (8-78) U/L Ethyl Alcohol mg/dL COVID-19 ([facility]) (Negative) COVID-19 Clin Com 07/22/21 07/22/21 07/22/21 Range/Units 22:10 22:10 22:10 WBC (4.8-10.8) X10*3/uL RBC (4.60-5.80) X10*6/uL Hgb (14.0-18.0) g/dl Hct (42-52) % MCV (80-98) fL MCH (27.0-33.0) pg MCHC (31.0-36.0) g/dl RDW (11.0-16.0) % Plt Count (160-400) X10*3/uL MPV (9.4-12.4) fL Immature Gran % (Auto) (0.0-0.4) % Neut % (Auto) (45-73) % Lymph % (Auto) (20-40) % [place] % (Auto) (2-11) % Eos % (Auto) (0-4) % Baso % (Auto) (0-2) % Lymph # (Auto) (1.2-4.9) X10*3/uL [place] # (Auto) (0.1-1.2) X10*3/uL Eos # (Auto) (0.0-0.4) X10*3/uL Baso # (Auto) (0.0-0.2) X10*3/uL Abs Immat Gran (auto) (0.00-0.03) X10*3/uL Absolute Neuts (auto) (2.0-8.3) X10*3/uL Absolute Nucleated RBC (0.0-0.012) X10*3/uL Nucleated RBC % (auto) (0.0-0.2) /100WBC Sodium (135-145) mmol/L Potassium (3.3-5.1) mmol/L Chloride (96-108) mmol/L Carbon Dioxide (22-29) mmol/L Anion Gap (12-20) BUN (9-16) mg/dL Creatinine (0.5-1.4) mg/dL Estim Creat Clear Calc Estimated GFR POC Glucose (60-115) mg/dL Random Glucose (60-115) mg/dL Calcium (8.4-10.2) mg/dL Total Bilirubin 2.2 H (0.0-1.0) mg/dL Direct Bilirubin 1.2 H (0.0-0.5) mg/dL AST 187 H (5-37) U/L ALT 96 H (0-40) U/L Alkaline Phosphatase 153 H (39-117) U/L B-Natriuretic Peptide 151 H (<100) pg/mL Total Protein 9.7 H D (6.5-8.0) g/dL Albumin 4.4 D (3.5-5.0) g/dL Lipase 67 (8-78) U/L Ethyl Alcohol mg/dL COVID-19 ([facility]) Negative (Negative) COVID-19 Clin Com See Note 07/22/21 Range/Units 22:10 WBC (4.8-10.8) X10*3/uL RBC (4.60-5.80) X10*6/uL Hgb (14.0-18.0) g/dl Hct (42-52) % MCV (80-98) fL MCH (27.0-33.0) pg MCHC (31.0-36.0) g/dl RDW (11.0-16.0) % Plt Count (160-400) X10*3/uL MPV (9.4-12.4) fL Immature Gran % (Auto) (0.0-0.4) % Neut % (Auto) (45-73) % Lymph % (Auto) (20-40) % [place] % (Auto) (2-11) % Eos % (Auto) (0-4) % Baso % (Auto) (0-2) % Lymph # (Auto) (1.2-4.9) X10*3/uL [place] # (Auto) (0.1-1.2) X10*3/uL Eos # (Auto) (0.0-0.4) X10*3/uL Baso # (Auto) (0.0-0.2) X10*3/uL Abs Immat Gran (auto) (0.00-0.03) X10*3/uL Absolute Neuts (auto) (2.0-8.3) X10*3/uL Absolute Nucleated RBC (0.0-0.012) X10*3/uL Nucleated RBC % (auto) (0.0-0.2) /100WBC Sodium (135-145) mmol/L Potassium (3.3-5.1) mmol/L Chloride (96-108) mmol/L Carbon Dioxide (22-29) mmol/L Anion Gap (12-20) BUN (9-16) mg/dL Creatinine (0.5-1.4) mg/dL Estim Creat Clear Calc Estimated GFR POC Glucose (60-115) mg/dL Random Glucose (60-115) mg/dL Calcium (8.4-10.2) mg/dL Total Bilirubin (0.0-1.0) mg/dL Direct Bilirubin (0.0-0.5) mg/dL AST (5-37) U/L ALT (0-40) U/L Alkaline Phosphatase (39-117) U/L B-Natriuretic Peptide (<100) pg/mL Total Protein (6.5-8.0) g/dL Albumin (3.5-5.0) g/dL Lipase (8-78) U/L Ethyl Alcohol 18 mg/dL COVID-19 ([facility]) (Negative) COVID-19 Clin Com Imaging Data CT scan - head: Radiologist's impression: No acute intracranial pathology. Sinus disease. Chest x-ray: Radiologist's impression: No acute pulmonary disease. ECG Data ECG #1: Interpretation: Sinus tachycardia at 139 beats per minutes, normal intervals, nonspecific ST-T changes. Discharge Plan Discharge Clinical Impression: Alcohol withdrawal, Seizure Patient Disposition: Admitted As Inpatient
[2021-07-22] MEDS: LORazepam 2 MG/ML VIAL IVPUSH (22:04)
[2021-07-22] MEDS: 0.9 % Sodium Chloride 1,000 ML 999 ML IVCONT (22:15)
[2021-07-22] MEDS: Magnesium Sulfate/H2O 2 GM/50 ML PIGGYBACK IV (22:15)
[2021-07-22 22:17] LABS: MANUAL DIFF FLAG NO
[2021-07-22 22:20] LABS: Basophils Percent Auto 0.2 % (0-2); Hematocrit 47.6 % (42-52); Hemoglobin 15.7 g/dl (14.0-18.0); Imm Gran Abs Auto 0.03 X10*3/uL (0.00-0.03); Imm Gran Pct Auto 0.3 % (0.0-0.4); Lymphocytes Absolute Auto 2.3 X10*3/uL (1.2-4.9); Lymphocytes Percent Auto 18.8 % (20-40); Mean Corpuscular Hemoglobin 32.8 pg (27.0-33.0); Mean Corpuscular Volume 99.6 fL (80-98); Mean Platelet Volume 11.6 fL (9.4-12.4); Monocytes Absolute Auto 1.5 X10*3/uL (0.1-1.2); Monocytes Percent Auto 12.3 % (2-11); Neutrophils Absolute Auto 8.2 X10*3/uL (2.0-8.3); Neutrophils Percent Auto 68.4 % (45-73); Platelet Count 88 X10*3/uL (160-400); Red Blood Count 4.78 X10*6/uL (4.60-5.80); Red Cell Distribution Width 13.6 % (11.0-16.0)
[2021-07-22] MEDS: Thiamine HCL 100 MG in 0.9 % Sodium Chloride 100 ML 202 MG IV (22:21)
[2021-07-22] MEDS: PHENobarbitaL sodium 130 MG/ML VIAL 218 MG IM (22:25)
[2021-07-22 22:31] VITALS: BP 147/75; PULSE 126; RESP 15; O2SAT 98
[2021-07-22 22:34] LABS: Ethanol 18 mg/dL
[2021-07-22 22:36] LABS: Anion Gap 40 (12-20); Blood Urea Nitrogen 15 mg/dL (9-16); Calcium 9.4 mg/dL (8.4-10.2); Carbon Dioxide 11 mmol/L (22-29); Chloride 89 mmol/L (96-108); Creatinine Clr Calc Pharmacy 76.3; Estimated Glomerular Filt Rate > 60; Glucose Random 148 mg/dL (60-115); Potassium 3.8 mmol/L (3.3-5.1); Sodium 136 mmol/L (135-145)
[2021-07-22 22:43] LABS: Alanine Aminotransferase 96 U/L (0-40); Albumin Level 4.4 g/dL (3.5-5.0); Alkaline Phosphatase 153 U/L (39-117); Aspartate Amino Transferase 187 U/L (5-37); Bilirubin Direct 1.2 mg/dL (0.0-0.5); Bilirubin Total 2.2 mg/dL (0.0-1.0); Lipase 67 U/L (8-78); Total Protein 9.7 g/dL (6.5-8.0)
[2021-07-22 22:51] LABS: B Type Natriuretic Peptide 151 pg/mL (<100)
[2021-07-22 22:55] LABS: COVID-19 Test Negative (Negative)
--- NOTE | 2021-07-22 23:35 | PC.NURSE ---
Spoke with Dr Smith regarding continued tachycardia in the 140s and CIWA of 15. Patient arousable to name at this time, but quickly falls asleep.
[2021-07-23] VITALS (8 sets, daily range): BP systolic 126–173; BP diastolic 82–122; PULSE 113–123; RESP 12–18; TEMP 36.5–37.4; O2SAT 93–97
[2021-07-23] MEDS: 0.9 % Sodium Chloride 1,000 ML 999 ML IVCONT (00:08)
--- NOTE | 2021-07-23 00:45 | PM.IMHP ---
History of Present Illness Date of Service: 07/23/21 Chief Complaint: Seizure 61-year-old male with a past medical history of hypertension, alcohol abuse, history of delirium tremens, fatty liver, history of transaminitis, history of lung lesion,COPD, history of alcohol-induced pancreatitis; presented to the hospital with AMS. subsequently sent to the ER for further evaluation. Spoke to Pt's - who reports that pt was shaking saying probably going into withdrawal, vomiting and still drinking; pt was no coherent, confused and out of it. Denies seizure at home. per family pt initially refused yto go to ER. Denied Blood in Vomitus. pt had Chills and Sweating . denies any chest pain palpitations lightheadedness or dizziness. Denies any numbness tingling or focal weakness. Reports that he has been drinking alcohol regularly. Denies any fever chills cough. Denies any recent travel or sick contacts. Review of all other systems is negative except mentioned above ER team noted the patient does in lethargic; subsequently patient had an episode of tonic-clonic seizure witnessed by the ED staff lasted for few minutes; had tongue bite and +ve urinary incontinence. Patient was also noted to be in alcohol withdrawal. Admitted to the hospital for further management. [facility] Medical History Alcohol abuse DTs (delirium tremens) Elevated liver function tests Hypertension Surgical History Hx of colonoscopy No pertinent past surgical history Social History Household Members: Spouse Housing: House Do you presently have visiting nurse or other home services: No Alcohol intake: current Alcohol intake frequency: 3 or more drinks per day Alcohol type: hard liquor Patient Tobacco Use Status: Tobacco use Unknown Second Hand Smoke Exposure: No Advance Directives: No Advance Directives Information Provided: No Advance Directives Date on File: 01/01/21 service: Yes Current occupational status: unemployed Meds Allergies Allergy/AdvReac Type Severity Reaction Status Date / Time No Known Allergies Allergy Verified 01/14/21 15:54 Active Medications: Current Medications Generic Name Dose Route Start Last Admin Trade Name Freq PRN Reason Stop Dose Admin Albuterol/Ipratropium 3 ml 07/23/21 00:41 Albuterol/Iprat 2.5/0.5mg 3 Ml Ampul.Neb INHALE RQ4H PRN Shortness of Breath/Wheezing Atorvastatin Calcium 10 mg 07/23/21 09:00 Atorvastatin Calcium 10 Mg Tablet PO DAILY MARQUISE Famotidine 20 mg 07/23/21 09:00 Famotidine 20 Mg Tablet PO BID MARQUISE Folic Acid 1 mg 07/23/21 09:00 Folic Acid 1 Mg Tablet PO 07/26/21 08:59 DAILY MARQUISE Sodium Chloride 1,000 mls @ 999 mls/hr 07/22/21 23:45 07/23/21 00:08 Ns IVCONT 07/23/21 00:45 999 mls/hr .Q1H1M MARQUISE Administration Dextrose/Sodium Chloride 1,000 mls @ 100 mls/hr 07/23/21 00:45 D51/2ns IVCONT .Q10H MARQUISE Lorazepam 1 mg 07/23/21 00:40 Lorazepam 2 Mg/Ml Vial IVPUSH Q2H PRN Seizures Magnesium Hydroxide 30 ml 07/23/21 00:41 Milk Of Magnesia 30 Ml Oral.Susp PO DAILY PRN Constipation Medication 1 each 07/23/21 09:00 No Benzodiazepines MISCELLANE DAILY [facility] Melatonin 6 mg 07/23/21 00:41 Melatonin 3 Mg Tablet PO BEDTIME PRN Insomnia Multivitamins 1 tab 07/23/21 09:00 B-Complex With Vitamin C Tablet PO DAILY [facility] Oxycodone HCl 5 mg 07/23/21 00:41 Oxycodone Hcl Immed Release 5 Mg Tablet PO Q6H PRN Pain, Severe (Pain Scale 7-10) Phenobarbital 45 mg 07/23/21 09:00 Phenobarbital 15 Mg Tablet PO 07/24/21 21:01 BID [facility] Phenobarbital 30 mg 07/25/21 09:00 Phenobarbital 30 Mg Tablet PO 07/26/21 21:01 BID [facility] Phenobarbital 15 mg 07/27/21 09:00 Phenobarbital 15 Mg Tablet PO 07/28/21 09:01 DAILY [facility] Phenobarbital Sodium 164 mg 07/23/21 03:00 Phenobarbital Sodium 130 Mg/Ml Vial IM 07/23/21 06:01 [id number] [facility] Sodium Chloride 3 ml 07/23/21 08:00 0.9 % Sodium Chloride Flush 3 Ml Syringe IVFLUSH QSHIFT [facility] Thiamine HCl 100 mg 07/23/21 09:00 Thiamine Hcl 100 Mg Tablet PO 07/26/21 08:59 DAILY [facility] Home Medications Medication Instructions Recorded Confirmed Last Taken Type atorvastatin 10 mg tablet 10 mg PO DAILY 07/22/21 07/22/21 07/22/21 History lorazepam 0.5 mg tablet 0.5 mg PO TID PRN 07/22/21 07/22/21 Unknown History thiamine HCl (vitamin B1) 100 mg 100 mg PO DAILY 07/22/21 07/22/21 07/22/21 History tablet Physical Exam Vital Signs and Narrative: Vital Signs: Last Vital Signs Temp 99.3 F 07/22/21 21:40 Pulse 122 H 07/23/21 00:09 Resp 15 07/23/21 00:09 BP 162/96 H 07/23/21 00:09 Pulse Ox 93 07/23/21 00:09 Body Mass Index 28.1 Gen: Appears be in no acute distress; tachy; Saturating 95% on RA. HEENT: NCAT, Moist mucosa.Tongue is swollen and erythematous; Pulmonary: Vesicular breath sounds, fair air entry CVS: Normal S1-S2 Abdomen: BS+, Soft, Nontender Extremities: Warm well perfused Neuro: Alert and awake.Grossly nonfocal; speech slurred due to swollen tongue Results Labs CBC and Chem 7: 07/22/21 22:10 07/22/21 22:10 Labs: Laboratory Results - last 24 hr 07/22/21 07/22/21 07/22/21 21:44 22:10 22:10 MCV 99.6 H MCH 32.8 MCHC 33.0 RDW 13.6 Plt Count 88 L D MPV 11.6 Immature Gran % (Auto) 0.3 Neut % (Auto) 68.4 Lymph % (Auto) 18.8 L [place] % (Auto) 12.3 H Eos % (Auto) 0.0 Baso % (Auto) 0.2 Lymph # (Auto) 2.3 [place] # (Auto) 1.5 H Eos # (Auto) 0.0 Baso # (Auto) 0.0 Abs Immat Gran (auto) 0.03 Absolute Neuts (auto) 8.2 Absolute Nucleated RBC 0.000 Nucleated RBC % (auto) 0.0 Anion Gap 40 H Estim Creat Clear Calc 76.3 Estimated GFR > 60 POC Glucose 123 H Random Glucose 148 H D Calcium 9.4 D Total Bilirubin Direct Bilirubin AST ALT Alkaline Phosphatase B-Natriuretic Peptide Total Protein Albumin Lipase Ethyl Alcohol COVID-19 ([facility]) COVID-19 Clin Com 07/22/21 07/22/21 07/22/21 22:10 22:10 22:10 MCV MCH MCHC RDW Plt Count MPV Immature Gran % (Auto) Neut % (Auto) Lymph % (Auto) [place] % (Auto) Eos % (Auto) Baso % (Auto) Lymph # (Auto) [place] # (Auto) Eos # (Auto) Baso # (Auto) Abs Immat Gran (auto) Absolute Neuts (auto) Absolute Nucleated RBC Nucleated RBC % (auto) Anion Gap Estim Creat Clear Calc Estimated GFR POC Glucose Random Glucose Calcium Total Bilirubin 2.2 H Direct Bilirubin 1.2 H AST 187 H ALT 96 H Alkaline Phosphatase 153 H B-Natriuretic Peptide 151 H Total Protein 9.7 H D Albumin 4.4 D Lipase 67 Ethyl Alcohol COVID-19 ([facility]ENDAN) Negative COVID-19 Clin Com See Note 07/22/21 22:10 MCV MCH MCHC RDW Plt Count MPV Immature Gran % (Auto) Neut % (Auto) Lymph % (Auto) [place] % (Auto) Eos % (Auto) Baso % (Auto) Lymph # (Auto) [place] # (Auto) Eos # (Auto) Baso # (Auto) Abs Immat Gran (auto) Absolute Neuts (auto) Absolute Nucleated RBC Nucleated RBC % (auto) Anion Gap Estim Creat Clear Calc Estimated GFR POC Glucose Random Glucose Calcium Total Bilirubin Direct Bilirubin AST ALT Alkaline Phosphatase B-Natriuretic Peptide Total Protein Albumin Lipase Ethyl Alcohol 18 COVID-19 ([facility]END[facility]) COVID-19 Clin Com Imaging Radiologist's Impressions: Impressions Chest X-Ray 07/22/21 21:57 IMPRESSION: No acute pulmonary disease. Head CT 07/22/21 21:57 IMPRESSION: No acute intracranial pathology. Sinus disease. Assessment and Plan (1) Transaminitis: Status: Acute (2) Alcohol withdrawal: Qualifiers: Complication of substance-induced condition: uncomplicated Qualified Code(s): F10.230 - Alcohol dependence with withdrawal, uncomplicated Status: Acute (3) Seizure: Status: Acute 61-year-old male with a past medical history of hypertension, alcohol abuse, history of delirium tremens, fatty liver, history of transaminitis, history of lung lesion, history of alcohol-induced pancreatitis; presented to the hospital after being found unresponsive by the family members. Altered mental status/unresponsive episode. Likely alcohol intoxication. Seizures: Likely alcohol withdrawal seizures. Patient has prior history of alcohol withdrawal seizure. Patient CT head showed no acute findings. Exam nonfocal. Seizure precautions, aspiration precautions Patient had similar presentation few months ago to the [facility]; patient was evaluated by Neurology who recommended no antiepileptics; Mentioned can consider gabapentin 300-600 mg t.i.d. if the patient develops any seizures-unprovoked. Tongue bite:noted swollen tongue with small hematoma; Breathing comfortably; aspiration precautions; NPO; supportive care. Swallow eval. Alcohol abuse: Patient started on phenobarbital protocol in the ER. Timing folate and multivitamins. Alcoholic gastritis: Pepcid Tachycardia in the setting of Alcohol with drawal. Echo. Transaminitis: Patient had prior history of transaminitis. Monitor liver enzymes. A recent CT scan showed fatty liver. History of lung lesion: Patient to follow-up outpatient for PET scan. DVT prophylaxis: SCD boots Code status: Full code Quality Stroke Does the patient have a stroke diagnosis?: No VTE Prior VTE?: No VTE Risk Level:: Medical - moderate - high VTE Device Contraindication: N/A - Device Ordered VTE Drug Contraindication: Treatment Not Indicated
[2021-07-23] MEDS: PHENobarbitaL 30 MG TABLET 120 MG PO (02:03)
[2021-07-23] MEDS: Dextrose 5 % and 0.45 % NaCl 1,000 ML 100 ML IVCONT (02:25)
[2021-07-23] MEDS: PHENobarbitaL sodium 130 MG/ML VIAL 164 MG IM ×2 (03:13→06:10)
--- NOTE | 2021-07-23 04:11 | PC.NURSE ---
Patient incontinent of urine. Linens changed. Bruise noted to right anterior chest wall. Also noted patients tongues is enlarged to more than twice normal size. brusing noted. Notified Dr Wilson of findings.
--- NOTE | 2021-07-23 05:04 | PC.NURSE ---
Patient's speech continues to be slurred. Has snoring respirations while awake. Seen by Dr Wilson re: size of tongue.. Patient NPO at this time, plan for swallow eval in am.
[2021-07-23] MEDS: LORazepam 2 MG/ML VIAL IVPUSH (05:30)
[2021-07-23 06:54] LABS: MANUAL DIFF FLAG NO
[2021-07-23 06:57] LABS: Basophils Percent Auto 0.1 % (0-2); Hematocrit 38.2 % (42-52); Hemoglobin 13.4 g/dl (14.0-18.0); Imm Gran Abs Auto 0.02 X10*3/uL (0.00-0.03); Imm Gran Pct Auto 0.2 % (0.0-0.4); Lymphocytes Absolute Auto 0.8 X10*3/uL (1.2-4.9); Lymphocytes Percent Auto 8.8 % (20-40); Mean Corpuscular HGB Conc 35.1 g/dl (31.0-36.0); Mean Corpuscular Hemoglobin 32.9 pg (27.0-33.0); Mean Corpuscular Volume 93.9 fL (80-98); Mean Platelet Volume 11.8 fL (9.4-12.4); Monocytes Absolute Auto 0.8 X10*3/uL (0.1-1.2); NRBC Pct Auto 0.2 /100WBC (0.0-0.2); Neutrophils Percent Auto 81.9 % (45-73); Platelet Count 72 X10*3/uL (160-400); Red Blood Count 4.07 X10*6/uL (4.60-5.80); Red Cell Distribution Width 13.2 % (11.0-16.0); White Blood Count 8.5 X10*3/uL (4.8-10.8)
[2021-07-23 07:21] LABS: Alanine Aminotransferase 70 U/L (0-40); Albumin Level 3.4 g/dL (3.5-5.0); Alkaline Phosphatase 111 U/L (39-117); Anion Gap 17 (12-20); Aspartate Amino Transferase 147 U/L (5-37); Bilirubin Direct 1.3 mg/dL (0.0-0.5); Blood Urea Nitrogen 14 mg/dL (9-16); Calcium 8.2 mg/dL (8.4-10.2); Carbon Dioxide 25 mmol/L (22-29); Chloride 94 mmol/L (96-108); Creatinine Clr Calc Pharmacy 91.2; Estimated Glomerular Filt Rate > 60; Glucose Random 139 mg/dL (60-115); Potassium 3.1 mmol/L (3.3-5.1); Sodium 133 mmol/L (135-145); Total Protein 7.2 g/dL (6.5-8.0)
--- NOTE | 2021-07-23 09:00 | PC.NURSE ---
Pt arousable but easily falls asleep. Pt's speech continues to be slurred, he has snoring respirations while awake. Pt's tongue twice the normal size. Pt has NPO order. All morning meds are ordered PO. Dr. Dacosta notified regarding PO orders. Swallow eval done and pt failed. Will continue to monitor. Pt pulled out iv from R arm, new iv placed in L AC. Pt continues to remove chest leads and attempting to remove new iv. iv wrapped for protection. Incontinent care done x2 since start of shift.
--- NOTE | 2021-07-23 09:29 | MHC.SL.SWA ---
Speech Pathologist Impression: Risk of Aspiration Oralpharyngeal Dysphagia Risk of Aspiration Due to: Lethargy Dysphasia Diet Status: No Change Liquid Consistency and Strategies for Safe Swallow: Liquid Intake Recommendation: NPO Solid Food Consistency: Dietary Recommendations: NPO Oral Medication Intake: NPO Supervision While Eating and Drinking for Safe Swallow: PO with CELLULAR PHONE REPAIRER Recommendation for Speech: Inpatient Speech Therapy Comment: Patient failed bedside dysphagia evaluation. Patient has enlarged tongue twice the normal size. Decreased mental status when seen in ED. Plan to re-evaluate tomorrow morning. MD and RN notified. Recommend frequent oral care and elevate head of bed at least 30 degrees to decrease risk of microaspiration. Leather Flesher Clinican/Clinical Fellow: No Supervisory Statement: I have reviewed and agree with the student/clinical fellow's documentation: N/A Speech Language Pathologist: Elli Rivas M.A., CCC-CELLULAR PHONE REPAIRER
--- NOTE | 2021-07-23 09:52 | HE.PHANOTE ---
Patient NPO. Per Dr. Dacosta, switch all PO phenobarbital from the protocol to IM. Bella Rosario, PharmD
[2021-07-23] MEDS: 0.9 % Sodium Chloride Flush 3 ML SYRINGE IVFLUSH ×2 (10:05→21:11)
[2021-07-23] MEDS: PHENobarbitaL sodium 65 MG/ML VIAL 45 MG IM ×2 (10:10→21:11)
[2021-07-23] MEDS: Folic Acid 1 MG in 0.9 % Sodium Chloride 50 ML 100.4 MG IV (11:55)
--- NOTE | 2021-07-23 12:16 | PC.NURSE ---
This senior grant writer just called to give report on pt. JAG Skinner will call me back.
--- NOTE | 2021-07-23 12:33 | PC.NURSE ---
This public relations writer gave report to JAG Skinner. Brody will call back after speaking with quality control supervisor regarding possible sitter for pt.
--- NOTE | 2021-07-23 13:20 | PC.NURSE ---
Patient transported to [place] [id number] from emergency department with no IV access
--- NOTE | 2021-07-23 13:56 | P.CNNE_ITS ---
History of Present Illness Data of Consult Service Date: 07/23/21 Primary Care Provider: Jone Aly MD HPI Reason for consult: 61 years old man with alcoholism I was asked to see for possibility of seiz 61 years old man with alcoholism and possible seizure disorder. He was brought to hospital with nausea vomiting confusion and hand shaking. He was unable to provide any meaningful history. Review of Systems Review of Systems: Could not be done with him PMFSH Past Medical History Medical History Alcohol abuse DTs (delirium tremens) Elevated liver function tests Hypertension Surgical History Surgical History Hx of colonoscopy No pertinent past surgical history Social History Social History Household Members: Spouse Housing: House Do you presently have visiting nurse or other home services: No Alcohol intake: current Alcohol intake frequency: 3 or more drinks per day Alcohol type: hard liquor Patient Tobacco Use Status: Tobacco use Unknown Second Hand Smoke Exposure: No Advance Directives: No Advance Directives Information Provided: No Advance Directives Date on File: 01/01/21 service: Yes Current occupational status: unemployed Meds Allergies Allergy/AdvReac Type Severity Reaction Status Date / Time No Known Allergies Allergy Verified 01/14/21 15:54 Active Medications: Current Medications Generic Name Dose Route Start Last Admin Trade Name Freq PRN Reason Stop Dose Admin Albuterol/Ipratropium 3 ml 07/23/21 00:41 Albuterol/Iprat 2.5/0.5mg 3 Ml Ampul.Neb INHALE RQ4H PRN Shortness of Breath/Wheezing Atorvastatin Calcium 10 mg 07/23/21 09:00 07/23/21 10:19 Atorvastatin Calcium 10 Mg Tablet PO Not Given DAILY MARQUISE Folic Acid 1 mg/ Sodium 50.2 mls @ 100.4 mls/hr 07/23/21 10:00 07/23/21 13:36 Chloride IV 07/25/21 09:29 Infused DAILY MARQUISE Infusion Thiamine HCl 100 mg/ Sodium 101 mls @ 202 mls/hr 07/23/21 10:00 Chloride IV 07/25/21 09:29 DAILY MARQUISE Potassium Chloride 10 meq in 100 mls @ 100 mls/hr 07/23/21 11:30 IV 07/23/21 15:29 Q1H MARQUISE Lorazepam 1 mg 07/23/21 00:40 Lorazepam 2 Mg/Ml Vial IVPUSH Q2H PRN Seizures Magnesium Hydroxide 30 ml 07/23/21 00:41 Milk Of Magnesia 30 Ml Oral.Susp PO DAILY PRN Constipation Medication 1 each 07/23/21 09:00 No Benzodiazepines MISCELLANE DAILY [facility] Melatonin 6 mg 07/23/21 00:41 Melatonin 3 Mg Tablet PO BEDTIME PRN Insomnia Phenobarbital Sodium 15 mg 07/28/21 09:00 Phenobarbital Sodium 65 Mg/Ml Vial IM 07/29/21 09:01 DAILY [facility] Phenobarbital Sodium 45 mg 07/23/21 21:00 Phenobarbital Sodium 65 Mg/Ml Vial IM 07/25/21 09:01 BID [facility] Phenobarbital Sodium 30 mg 07/25/21 21:00 Phenobarbital Sodium 65 Mg/Ml Vial IM 07/27/21 09:01 BID [facility] Sodium Chloride 3 ml 07/23/21 08:00 07/23/21 10:05 0.9 % Sodium Chloride Flush 3 Ml Syringe IVFLUSH 3 ml QSHIFT [facility] Administration Home Medications Medication Instructions Recorded Confirmed Last Taken Type atorvastatin 10 mg tablet 10 mg PO DAILY 07/22/21 07/22/21 07/22/21 History lorazepam 0.5 mg tablet 0.5 mg PO TID PRN 07/22/21 07/22/21 Unknown History thiamine HCl (vitamin B1) 100 mg 100 mg PO DAILY 07/22/21 07/22/21 07/22/21 History tablet Physical Exam Vital Signs: Vital Signs: Last Vital Signs Temp 99.3 F 07/23/21 06:45 Pulse 123 H 07/23/21 08:05 Resp 18 07/23/21 08:05 BP 127/92 H 07/23/21 08:05 Pulse Ox 97 07/23/21 08:05 Body Mass Index 28.1 Neuro: Other: Drowsy man with hyperemic scan and severe nasty smell of alcohol and feces coming from him. He made eye contact and followed simple commands. He denied any pain. Speech was soft and slightly dysarthric. He was moving his each extremity with no obvious problem. Reflexes were absent with flexor plantars. There was mild right-sided ptosis. Results Labs CBC & Chem 7: 07/23/21 06:36 07/23/21 06:36 Labs: Short CBC 07/22/21 07/23/21 Range/Units 22:10 06:36 WBC 12.0 H 8.5 (4.8-10.8) X10*3/uL Hgb 15.7 D 13.4 L (14.0-18.0) g/dl Hct 47.6 D 38.2 L (42-52) % Plt Count 88 L D 72 L (160-400) X10*3/uL BMP 07/22/21 07/23/21 22:10 06:36 Sodium 136 133 L Potassium 3.8 3.1 L Chloride 89 L 94 L Carbon Dioxide 11 L 25 BUN 15 D 14 Creatinine 1.10 0.92 Calcium 9.4 D 8.2 L D Liver Function 07/22/21 07/23/21 Range/Units 22:10 06:36 Total Bilirubin 2.2 H 2.0 H (0.0-1.0) mg/dL Direct Bilirubin 1.2 H 1.3 H (0.0-0.5) mg/dL AST 187 H 147 H (5-37) U/L ALT 96 H 70 H (0-40) U/L Alkaline Phosphatase 153 H 111 D (39-117) U/L Albumin 4.4 D 3.4 L D (3.5-5.0) g/dL Noncontrast head CT revealed moderately severe cerebellar atrophy. Assessment and Plan (1) Seizure: Status: Acute 61 years old man with severe alcoholism and at this time not able to provide any meaningful history. He might have a seizure but that was probably related to alcohol. For now mainstay of management is supplementation of thiamine and folate and B complex vitamins, hydration, ruling out infection, and detox protocol. When more stable, 1 could do an electroencephalogram to check underlying tendency or possibility of epilepsy. Patients like him are at high risk of seizure disorder. But management might require further evaluation Procedures Date of Service Date of Service: 07/23/21
[2021-07-23] MEDS: Potassium Chloride/H20 10 MEQ/100 ML PIGGYBACK 100 MEQ IV ×4 (14:40→19:36)
--- NOTE | 2021-07-23 14:52 | PC.NURSE ---
Pharmacy called regarding patient thiamine due at 1000. Thiamine ordered for 1000, not given in ED. Pharmacy to call ED in attempt to locate Thiamine
[2021-07-23] MEDS: Thiamine HCL 100 MG in 0.9 % Sodium Chloride 100 ML 202 MG IV (17:02)
[2021-07-24] VITALS (7 sets, daily range): BP systolic 125–164; BP diastolic 79–97; PULSE 71–121; RESP 16–19; TEMP 36–36.7; O2SAT 94–100
[2021-07-24 06:49] LABS: Hematocrit 37.7 % (42-52); Mean Corpuscular Volume 94.7 fL (80-98); Mean Platelet Volume 13.2 fL (9.4-12.4); Red Blood Count 3.98 X10*6/uL (4.60-5.80)
[2021-07-24 06:51] LABS: Mean Corpuscular HGB Conc 34.5 g/dl (31.0-36.0); Mean Corpuscular Hemoglobin 32.7 pg (27.0-33.0); Red Cell Distribution Width 13.2 % (11.0-16.0); White Blood Count 7.7 X10*3/uL (4.8-10.8)
[2021-07-24 07:20] LABS: PLT ABN DIST 1; Platelet Count 67 X10*3/uL (160-400)
[2021-07-24 08:30] LABS: Anion Gap 15 (12-20); Blood Urea Nitrogen 13 mg/dL (9-16); Calcium 8.6 mg/dL (8.4-10.2); Carbon Dioxide 29 mmol/L (22-29); Chloride 94 mmol/L (96-108); Creatinine Clr Calc Pharmacy 116.5; Estimated Glomerular Filt Rate > 60; Glucose Fasting 82 mg/dL (60-99); Magnesium 1.9 mg/dL (1.6-2.6); Potassium 3.1 mmol/L (3.3-5.1); Sodium 135 mmol/L (135-145)
[2021-07-24] MEDS: PHENobarbitaL sodium 65 MG/ML VIAL 45 MG IM ×2 (08:32→20:08)
[2021-07-24] MEDS: 0.9 % Sodium Chloride Flush 3 ML SYRINGE IVFLUSH ×3 (08:32→23:18)
[2021-07-24] MEDS: Folic Acid 1 MG in 0.9 % Sodium Chloride 50 ML 100.4 MG IV (08:35)
[2021-07-24 08:56] LABS: HBc Num1 0.09 S/CO (0.00-0.79); Hepatitis B Core Antibody Nonreactive (Nonreactive); Hepatitis B Surface Antigen Negative (Negative); ~HepC Num1 0.18 S/CO (0.00-0.79); ~Hepatitis C Antibody Nonreactive (Nonreactive)
[2021-07-24] MEDS: Thiamine HCL 100 MG in 0.9 % Sodium Chloride 100 ML 202 MG IV (09:08)
[2021-07-24 09:12] LABS: HBS Num1 0.44 mIU/mL (0-7.99); Hepatitis A Antibody IgM 0.14 Index (0-0.79); ~Hepatitis A Antibody IgM Nonreactive (Nonreactive); ~Hepatitis B Surface Antibody NONREACTIVE (Nonreactive)
--- NOTE | 2021-07-24 09:26 | HO.PM.IMPN ---
Subjective Subjective Date of Service: 07/24/21 Interval History: still lethargic, tremulous Cardiovascular Cardiovascular: Reports no additional cardiovascular complaints Respiratory Respiratory: Reports no additional respiratory complaints Physical Exam Vital Signs: Vital Signs: Last Vital Signs Temp 98.1 F 07/24/21 08:00 Pulse 103 H 07/24/21 08:00 Resp 18 07/24/21 08:00 BP 158/97 H 07/24/21 08:00 Pulse Ox 97 07/24/21 08:00 Body Mass Index 28.1 General: lethargic, oriented, slurred speech Resp: CTA bilateral CVS: S1,S2,RRR GI: soft, non tender, non distended Neuro: tremulous, slurred speech Psych: impaired insight Objective Data Active Medications Albuterol/Ipratropium (Albuterol/Iprat 2.5/0.5mg 3 Ml Ampul.Neb) 3 ml INHALE RQ4H PRN PRN Reason: Shortness of Breath/Wheezing Atorvastatin Calcium (Atorvastatin Calcium 10 Mg Tablet) 10 mg PO DAILY [facility] Last Admin: 07/24/21 07:36 Dose: Not Given Documented by: MANDYEMA Non-Admin Reason: NPO Folic Acid 1 mg/ Sodium (Chloride) 50.2 mls @ 100.4 mls/hr IV DAILY [facility] Stop: 07/25/21 09:29 Last Infusion: 07/24/21 09:07 Dose: 0 mls/hr Documented by: MARSHALL Thiamine HCl 100 mg/ Sodium (Chloride) 101 mls @ 202 mls/hr IV DAILY [facility] Stop: 07/25/21 09:29 Last Admin: 07/24/21 09:08 Dose: 202 mls/hr Documented by: MARSHALL Lorazepam (Lorazepam 2 Mg/Ml Vial) 1 mg IVPUSH Q2H PRN PRN Reason: Seizures Magnesium Hydroxide (Milk Of Magnesia 30 Ml Oral.Susp) 30 ml PO DAILY PRN PRN Reason: Constipation Medication (No Benzodiazepines) 1 each MISCELLANE DAILY [facility] Melatonin (Melatonin 3 Mg Tablet) 6 mg PO BEDTIME PRN PRN Reason: Insomnia Phenobarbital Sodium (Phenobarbital Sodium 65 Mg/Ml Vial) 15 mg IM DAILY [facility] Stop: 07/29/21 09:01 Phenobarbital Sodium (Phenobarbital Sodium 65 Mg/Ml Vial) 45 mg IM BID [facility] Stop: 07/25/21 09:01 Last Admin: 07/24/21 08:32 Dose: 45 mg Documented by: MARSHALL Phenobarbital Sodium (Phenobarbital Sodium 65 Mg/Ml Vial) 30 mg IM BID [facility] Stop: 07/27/21 09:01 Potassium Chloride (Potassium Chloride Er 20 Meq Tab.Er.Prt) 40 meq PO ONCE ONE Stop: 07/24/21 09:31 Sodium Chloride (0.9 % Sodium Chloride Flush 3 Ml Syringe) 3 ml IVFLUSH QSHIFT [facility] Last Admin: 07/24/21 08:32 Dose: 3 ml Documented by: MARSHALL Labs CBC & Chem 7: 07/24/21 06:11 07/24/21 06:11 Labs: Laboratory Results - last 24 hr 07/24/21 07/24/21 06:11 06:11 MCV 94.7 MCH 32.7 MCHC 34.5 RDW 13.2 Plt Count 67 L MPV 13.2 H Absolute Nucleated RBC 0.000 Nucleated RBC % (auto) 0.0 Anion Gap 15 Estim Creat Clear Calc 116.5 Estimated GFR > 60 Fasting Glucose 82 Calcium 8.6 Magnesium 1.9 Assessment and Plan (1) Seizure: Status: Acute Assessment and Plan: 61M presented with seizure alcohol dependence with withdrawal and seizure with metabolic encephalopathy and dysphagia phenobarbital CIWA currently npo for dysphagia, follwo up [employer]GER [employer] hypokalemia replace and monitor alcoholic liver disease monitor LFTs etoh cessation hld statin Quality Stroke Does the patient have a stroke diagnosis?: No VTE Prior VTE?: No VTE Risk Level:: Medical - moderate - high VTE Device Contraindication: N/A - Device Ordered VTE Drug Contraindication: Treatment Not Indicated
--- NOTE | 2021-07-24 11:25 | MHC.CM.PN ---
met with pt who lives with his pt has own transportation home and does not anticipate needing services when dcd
--- NOTE | 2021-07-24 12:10 | MHC.CLN ---
NUTRITION CONSULT PATIENT WITH ENLARGED TONGUE DUE TO BIT TONGUE DURING SEIZURE. STAFF DEVELOPMENT COORDINATOR RN RECOMMENDED NPO. CONTINUE TO FOLLOW FOR DIET UPGRADE.
[2021-07-24] MEDS: Potassium Chloride ER 20 MEQ TAB.ER.PRT 40 MEQ PO (14:14)
--- NOTE | 2021-07-24 14:45 | MHC.SL.DTX ---
Pre-Treatment Diet: Subjective: Changes made to current diet?: Yes Dysphasia Diet Status: PO Liquid Consistency and Strategies: Liquid Intake Recommendation: Thin Compensatory Strategies for Safe Swallow: Small Sips No Straws Compensatory Strategies for Safe Swallow(b): alternate solids and liquids small, single bites and sips check for oral clearance after each bite/sip Solid Food Consistency: Dietary Recommendations: NPO Additional Modifications to Solids: 1:1 supervision for PO intake, aspiration precautions Oral Medication Intake: medications whole in puree, crush large pills as needed Strategies and Precautions to be Taken for Safe Swallow: Compensatory Swallowing Status: Aspiration precautions Supervision While Eating and/Drinking: Total Supervision (1:1) Recommendation for Speech: Inpatient Speech Therapy Stagecraft Professor Clinican/Clinical Fellow: No Supervisory Statement: I have reviewed and agree with the student/clinical fellow's documentation: N/A Speech Language Pathologist: Elli Rivas M.A., CCC-BUILDING COORDINATOR
[2021-07-25 04:00] VITALS: BP 148/93; PULSE 103; RESP 16; TEMP 35.6; O2SAT 94
[2021-07-25 06:58] LABS: Hematocrit 38.1 % (42-52); Mean Corpuscular HGB Conc 34.1 g/dl (31.0-36.0); Mean Corpuscular Hemoglobin 32.7 pg (27.0-33.0); Mean Platelet Volume 11.9 fL (9.4-12.4); Red Blood Count 3.97 X10*6/uL (4.60-5.80); Red Cell Distribution Width 13.1 % (11.0-16.0); White Blood Count 5.5 X10*3/uL (4.8-10.8)
[2021-07-25 07:03] LABS: Platelet Count 74 X10*3/uL (160-400)
[2021-07-25 07:16] LABS: Alanine Aminotransferase 107 U/L (0-40); Albumin Level 3.2 g/dL (3.5-5.0); Alkaline Phosphatase 143 U/L (39-117); Anion Gap 12 (12-20); Aspartate Amino Transferase 259 U/L (5-37); Bilirubin Direct 0.9 mg/dL (0.0-0.5); Bilirubin Total 1.4 mg/dL (0.0-1.0); Blood Urea Nitrogen 15 mg/dL (9-16); Calcium 8.5 mg/dL (8.4-10.2); Carbon Dioxide 32 mmol/L (22-29); Chloride 93 mmol/L (96-108); Creatinine Clr Calc Pharmacy 123.4; Estimated Glomerular Filt Rate > 60; Glucose Fasting 90 mg/dL (60-99); Magnesium 1.7 mg/dL (1.6-2.6); Potassium 3.2 mmol/L (3.3-5.1); Sodium 134 mmol/L (135-145)
[2021-07-25 07:37] VITALS: BP 121/86; PULSE 106; RESP 17; TEMP 37.2; O2SAT 97
[2021-07-25] MEDS: 0.9 % Sodium Chloride Flush 3 ML SYRINGE IVFLUSH (10:05)
[2021-07-25] MEDS: Potassium Chloride ER 20 MEQ TAB.ER.PRT 40 MEQ PO (10:05)
[2021-07-25] MEDS: PHENobarbitaL sodium 65 MG/ML VIAL 45 MG IM (10:05)
[2021-07-25] MEDS: Atorvastatin Calcium 10 MG TABLET PO (10:06)
[2021-07-25] MEDS: Folic Acid 1 MG in 0.9 % Sodium Chloride 50 ML 100.4 MG IV (10:06)
[2021-07-25] MEDS: Thiamine HCL 100 MG in 0.9 % Sodium Chloride 100 ML 202 MG IV (10:43)
--- NOTE | 2021-07-25 10:45 | P.PNIM_ITS ---
Subjective Subjective Date of Service: 07/25/21 Interval History: feeeling better today, does not remember earlier events well Cardiovascular Cardiovascular: Reports no additional cardiovascular complaints Respiratory Respiratory: Reports no additional respiratory complaints Physical Exam Vital Signs: Vital Signs: Last Vital Signs Temp 98.9 F 07/25/21 07:37 Pulse 106 H 07/25/21 07:37 Resp 17 07/25/21 07:37 BP 121/86 07/25/21 07:37 Pulse Ox 97 07/25/21 07:37 Body Mass Index 28.1 General: AO X 3, no acute distress Resp: CTA bilateral CVS: S1,S2,Rapid GI: soft, non tender, non distended Neuro: motor grossly intact, mildly tremulous Psych: appropriate affect Objective Data Active Medications Albuterol/Ipratropium (Albuterol/Iprat 2.5/0.5mg 3 Ml Ampul.Neb) 3 ml INHALE RQ4H PRN PRN Reason: Shortness of Breath/Wheezing Atorvastatin Calcium (Atorvastatin Calcium 10 Mg Tablet) 10 mg PO DAILY [facility] Last Admin: 07/25/21 10:06 Dose: 10 mg Documented by: HANS Lorazepam (Lorazepam 2 Mg/Ml Vial) 1 mg IVPUSH Q2H PRN PRN Reason: Seizures Magnesium Hydroxide (Milk Of Magnesia 30 Ml Oral.Susp) 30 ml PO DAILY PRN PRN Reason: Constipation Medication (No Benzodiazepines) 1 each MISCELLANE DAILY [facility] Melatonin (Melatonin 3 Mg Tablet) 6 mg PO BEDTIME PRN PRN Reason: Insomnia Phenobarbital Sodium (Phenobarbital Sodium 65 Mg/Ml Vial) 15 mg IM DAILY [facility] Stop: 07/29/21 09:01 Phenobarbital Sodium (Phenobarbital Sodium 65 Mg/Ml Vial) 30 mg IM BID [facility] Stop: 07/27/21 09:01 Sodium Chloride (0.9 % Sodium Chloride Flush 3 Ml Syringe) 3 ml IVFLUSH QSHIFT [facility] Last Admin: 07/25/21 10:05 Dose: 3 ml Documented by: HANS Labs CBC & Chem 7: 07/25/21 06:11 07/25/21 06:11 Labs: Laboratory Results - last 24 hr 07/25/21 07/25/21 06:11 06:11 MCV 96.0 MCH 32.7 MCHC 34.1 RDW 13.1 Plt Count 74 L MPV 11.9 Absolute Nucleated RBC 0.000 Nucleated RBC % (auto) 0.0 Anion Gap 12 Estim Creat Clear Calc 123.4 Estimated GFR > 60 Fasting Glucose 90 Calcium 8.5 Magnesium 1.7 Total Bilirubin 1.4 H Direct Bilirubin 0.9 H AST 259 H ALT 107 H Alkaline Phosphatase 143 H D Total Protein 7.0 Albumin 3.2 L Assessment and Plan (1) Seizure: Status: Acute Assessment and Plan: 61M presented with seizure alcohol dependence with withdrawal and seizure with metabolic encephalopathy and dysphagia phenobarbital CIWA improving, [employer]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
[2021-07-25 11:12] VITALS: BP 154/94; PULSE 101; RESP 18; TEMP 36.5; O2SAT 98
[2021-07-25 15:33] VITALS: BP 140/92; PULSE 101; RESP 15; TEMP 36.3; O2SAT 99
[2021-07-25 19:26] VITALS: BP 155/98; PULSE 99; RESP 15; TEMP 36.1; O2SAT 99
[2021-07-25] MEDS: PHENobarbitaL sodium 65 MG/ML VIAL 30 MG IM (20:12)
[2021-07-25 23:48] VITALS: BP 182/107; PULSE 90; RESP 18; TEMP 36.5; O2SAT 99
[2021-07-26] MEDS: 0.9 % Sodium Chloride Flush 3 ML SYRINGE IVFLUSH ×3 (01:31→19:06)
[2021-07-26 03:19] VITALS: BP 130/79; PULSE 88; RESP 16; TEMP 35.9; O2SAT 99
[2021-07-26 07:10] LABS: Anion Gap 10 (12-20); Blood Urea Nitrogen 11 mg/dL (9-16); Calcium 8.5 mg/dL (8.4-10.2); Carbon Dioxide 32 mmol/L (22-29); Chloride 96 mmol/L (96-108); Estimated Glomerular Filt Rate > 60; Glucose Fasting 95 mg/dL (60-99); Magnesium 1.6 mg/dL (1.6-2.6); Potassium 3.5 mmol/L (3.3-5.1); Sodium 134 mmol/L (135-145)
[2021-07-26 08:00] VITALS: BP 145/88; PULSE 88; RESP 18; TEMP 36.4; O2SAT 98
--- NOTE | 2021-07-26 09:34 | MHC.CM.PN ---
Addendum entered by Eduarda Prather RN 07/26/21 09:45: PT HAS ONLY RECEIVED FRST PFIZER VACCINE, PT REPORTS IT HAS BEEN LESS THAN ONE MONTH AGO. Original Note: EMR REVIEWED, PT CONT'S ON PHENOBARB PROTOCOL FOR ETOH, CM ME TW/HOSPITALIST REGARDING CASE AND REPORTED PT WOULD LIKE STR, CM MET W/PT WHO DOES ASK FOR STR AND PREFERS [facility] [place] HE HAS BEEN THERE BEFORE, HOSPITALIST AWARE PT WILL NEED A PT EVAL, CM ALSO DISCUSSED ETOH TX W/PT WHO REPORTED HE IS INTERESTED IN TALKING W/A HEAD OF ART, [facility] SALESPERSON AWARE AND WILL MEET W/PT. D/C PLAN: [facility]- [facility] FOR TRANSPORT.
[2021-07-26] MEDS: PHENobarbitaL sodium 65 MG/ML VIAL 30 MG IM (09:40)
[2021-07-26] MEDS: Atorvastatin Calcium 10 MG TABLET PO (09:40)
--- NOTE | 2021-07-26 11:05 | HO.PM.IMPN ---
Subjective Subjective Date of Service: 07/26/21 Interval History: feeling better, but weak Cardiovascular Cardiovascular: Reports no additional cardiovascular complaints Respiratory Respiratory: Reports no additional respiratory complaints Physical Exam Vital Signs: Vital Signs: Last Vital Signs Temp 97.6 F 07/26/21 08:00 Pulse 88 07/26/21 08:00 Resp 18 07/26/21 08:00 BP 145/88 H 07/26/21 08:00 Pulse Ox 98 07/26/21 08:00 Body Mass Index 28.1 General: AO X 3, no acute distress Resp:? CTA bilateral CVS: S1,S2,RRR GI: soft, non tender, non distended Neuro:? motor grossly intact, mildly tremulous Psych: appropriate affect Objective Data Active Medications Albuterol/Ipratropium (Albuterol/Iprat 2.5/0.5mg 3 Ml Ampul.Neb) 3 ml INHALE RQ4H PRN PRN Reason: Shortness of Breath/Wheezing Atorvastatin Calcium (Atorvastatin Calcium 10 Mg Tablet) 10 mg PO DAILY [facility] Last Admin: 07/26/21 09:40 Dose: 10 mg Documented by: HANS Lorazepam (Lorazepam 2 Mg/Ml Vial) 1 mg IVPUSH Q2H PRN PRN Reason: Seizures Magnesium Hydroxide (Milk Of Magnesia 30 Ml Oral.Susp) 30 ml PO DAILY PRN PRN Reason: Constipation Medication (No Benzodiazepines) 1 each MISCELLANE DAILY [facility] Melatonin (Melatonin 3 Mg Tablet) 6 mg PO BEDTIME PRN PRN Reason: Insomnia Phenobarbital Sodium (Phenobarbital Sodium 65 Mg/Ml Vial) 15 mg IM DAILY [facility] Stop: 07/29/21 09:01 Phenobarbital Sodium (Phenobarbital Sodium 65 Mg/Ml Vial) 30 mg IM BID [facility] Stop: 07/27/21 09:01 Last Admin: 07/26/21 09:40 Dose: 30 mg Documented by: HANS Sodium Chloride (0.9 % Sodium Chloride Flush 3 Ml Syringe) 3 ml IVFLUSH QSHIFT [facility] Last Admin: 07/26/21 09:40 Dose: 3 ml Documented by: HANS Labs CBC & Chem 7: 07/25/21 06:11 07/26/21 06:10 Labs: Laboratory Results - last 24 hr 07/26/21 06:10 Anion Gap 10 L Estim Creat Clear Calc 109.0 Estimated GFR > 60 Fasting Glucose 95 Calcium 8.5 Magnesium 1.6 Assessment and Plan (1) Seizure: Status: Acute Assessment and Plan: 61M presented with seizure alcohol dependence with withdrawal and seizure with metabolic encephalopathy and dysphagia phenobarbital can switch back to po as dysphagia has significantly improved CIWA resolved debility PT eval, possible STR at SNF hypokalemia and hypomagnesemia replace and monitor alcoholic liver disease, likely some acute alcoholic hepatitis etoh cessation hld statin Quality Stroke Does the patient have a stroke diagnosis?: No VTE Prior VTE?: No VTE Risk Level:: Medical - moderate - high VTE Device Contraindication: N/A - Device Ordered VTE Drug Contraindication: Treatment Not Indicated
--- NOTE | 2021-07-26 11:39 | MHC.RECOVSUP ---
Recovery Support note: Patient is a 61 year old Romanian speaking male who presented to [facility] ED due to alcohol use and vomiting. Patient is known to this comic writer from previous consultations. This comic writer met with patient to discuss his alcohol use and recovery supports. Patient reports no period of sobriety following his last hospitalization. Patient was accompanied by his who reports that she is in recovery and that she receives the Vivitrol shot. Discussed medications for alcohol use disorder with patient and his and provided information on the [facility]. Discussed informal recovery supports such as AA with patient and his and provided information on this resource. Discussed IOP and information was provided. Patient expressed interest in being referred to a [employer]oll Gate Tender for ongoing recovery support. Patient has been referred to [facility] and a [employer]oll Gate Tender will contact him after discharge. Discussed relapse prevention and coping skills with patient. Discussed the snf health consequences of continued alcohol use. Patient reports no questions at this time. Patient provided with the contact information for this comic writer in the event that he has questions later on. Discussed case with patient's RN.
[2021-07-26 12:00] VITALS: BP 140/96; PULSE 104; RESP 16; TEMP 36.1; O2SAT 96
[2021-07-26 15:21] VITALS: BP 119/70; PULSE 112; RESP 15; TEMP 36.2; O2SAT 99
[2021-07-26] MEDS: Magnesium Oxide 400 MG TABLET PO (19:06)
--- NOTE | 2021-07-26 19:39 | MHC.RECOVSUP ---
? Reason for consult Recovery Support o Current location: [facility] o Identified substance use concern: Alcohol - Support ? Intervention: o Community resources provided o Harm reduction discussion ? Plan: o Patient to follow up with H after discharge ? Additional information: Met with patient and we talk about recovery and what he could of done different.. and harm reduction
[2021-07-26 19:45] VITALS: BP 158/90; PULSE 96; RESP 16; TEMP 36.6; O2SAT 97
[2021-07-26] MEDS: PHENobarbitaL 30 MG TABLET PO (20:30)
[2021-07-26 23:32] VITALS: BP 163/98; PULSE 95; RESP 19; TEMP 36.3; O2SAT 98
[2021-07-27] MEDS: 0.9 % Sodium Chloride Flush 3 ML SYRINGE IVFLUSH ×2 (00:23→09:29)
[2021-07-27 04:00] VITALS: BP 154/90; PULSE 86; RESP 18; TEMP 36.6; O2SAT 99
[2021-07-27 07:22] LABS: Alanine Aminotransferase 94 U/L (0-40); Alkaline Phosphatase 126 U/L (39-117); Anion Gap 10 (12-20); Aspartate Amino Transferase 130 U/L (5-37); Bilirubin Direct 0.6 mg/dL (0.0-0.5); Bilirubin Total 0.9 mg/dL (0.0-1.0); Blood Urea Nitrogen 7 mg/dL (9-16); Calcium 8.5 mg/dL (8.4-10.2); Carbon Dioxide 31 mmol/L (22-29); Chloride 97 mmol/L (96-108); Creatinine Clr Calc Pharmacy 111.9; Estimated Glomerular Filt Rate > 60; Glucose Fasting 98 mg/dL (60-99); Magnesium 1.6 mg/dL (1.6-2.6); Potassium 3.2 mmol/L (3.3-5.1); Sodium 135 mmol/L (135-145); Total Protein 6.4 g/dL (6.5-8.0)
[2021-07-27 08:00] VITALS: BP 143/91; PULSE 88; RESP 18; TEMP 36.1; O2SAT 98
[2021-07-27] MEDS: Atorvastatin Calcium 10 MG TABLET PO (09:28)
[2021-07-27] MEDS: Magnesium Oxide 400 MG TABLET PO (09:28)
[2021-07-27] MEDS: PHENobarbitaL 30 MG TABLET PO (09:29)
[2021-07-27] MEDS: Potassium Chloride ER 20 MEQ TAB.ER.PRT 40 MEQ PO (09:29)
--- NOTE | 2021-07-27 09:29 | MHC.SL.DTX ---
Pre-Treatment Diet: NDD2 ground solids, thin liquids Subjective: Pt was upright in bed with a bag in front of him upon this clinician's arrival. Pt was observed to place tobacco in his oral cavity. RN made aware. Pt reported that his tongue still felt painful, especially during mastication. Pt reported that he is being discharged home today. Discussed recommendation to avoid hard, crunchy, spicy foods until his tongue feels better. Changes made to current diet?: No Dysphasia Diet Status: No Change Liquid Consistency and Strategies: Liquid Intake Recommendation: Thin Compensatory Strategies for Safe Swallow: Small Sips No Straws Compensatory Strategies for Safe Swallow(b): Solid Food Consistency: Dietary Recommendations: NPO Additional Modifications to Solids: 1:1 supervision for PO intake, aspiration precautions Oral Medication Intake: NPO Strategies and Precautions to be Taken for Safe Swallow: Compensatory Swallowing Status: Supervision While Eating and/Drinking: Total Supervision (1:1) Foods to Avoid: Swallowing Recommended Treatments: Level of Impact on: Daily activities: Interpersonal interactions: Education: Employment: Community: Prognosis for Improvement: Recommendation for Speech: Inpatient Speech Therapy Comment: Continue with NDD2 ground solids and thin liquids. Change to intermittent supervision with PO inake given pt's significant increase in alertness. Additional Comments: Treatment: Assessment: Animal Pathologist Clinican/Clinical Fellow: No Supervisory Statement: I have reviewed and agree with the student/clinical fellow's documentation: N/A Speech Language Pathologist: Divya Calloway M.A. [facility]-WINDING INSPECTOR AND TE[employer]
--- NOTE | 2021-07-27 10:44 | MHC.CM.PN ---
PATIENT NOW REFUSING REHAB HE IS GOING HOME WITH NO SERVICES. RN AWARE OF PLAN.
--- NOTE | 2021-07-27 11:04 | PM.DS ---
DS: Providers Provider Date of Service: 07/27/21 Date of admission: 07/23/21 00:41 Primary care physician: Jone Aly MD Consults: 07/23/21 00:40 Consult to Neurology Routine Consulting Provider: [facility] Reason for consultation: seizure DS: Diagnosis Discharge Diagnosis (1) Seizure: Status: Acute (2) Alcohol withdrawal: Status: Acute (3) Hypomagnesemia: Status: Acute (4) Hypokalemia: Status: Acute (5) Alcoholic hepatitis: Status: Acute (6) Metabolic encephalopathy: Status: Acute DS: Summary Hospital Course Hospital Course: Patient was admitted for metabolic encephalopathy, alcohol dependence with withdrawal complicated by seizures. He was given phenobarbital. Eventually his withdrawal resolved. Did have some elevated transaminases likely due to mild acute alcoholic hepatitis. He has some hypokalemia and hypomagnesemia which was replaced. Initially plan was for short-term rehab at shelter facility, however, patient changes mind would like to be discharged home. He is feeling much better and no longer having withdrawal symptoms. He was educated on alcohol cessation. Time Spent with Patient Time attestation: Total time spent providing and/or coordinating discharge services: Discharge coordination time: Greater than 30 minutes Quality: Stroke Does the patient have a stroke diagnosis?: No Physical Exam Vital Signs: Vital Signs: Last Vital Signs Temp 97.0 F 07/27/21 08:00 Pulse 88 07/27/21 08:00 Resp 18 07/27/21 08:00 BP 143/91 H 07/27/21 08:00 Pulse Ox 98 07/27/21 08:00 Body Mass Index 28.1 General: AO X 3, no acute distress Resp: CTA bilateral CVS: S1,S2,RRR GI: soft, non tender, non distended Neuro: motor grossly intact Psych: appropriate affect DS: Data Data Completed and Pending Completed studies during hospitalization [Text1]: Procedures Detoxification Services for Substance Abuse Treatment (05/08/21) Labs on day of discharge: Laboratory Results - last 24 hr 07/27/21 06:02 Sodium 135 Potassium 3.2 L Chloride 97 Carbon Dioxide 31 H Anion Gap 10 L BUN 7 L Creatinine 0.75 Estim Creat Clear Calc 111.9 Estimated GFR > 60 Fasting Glucose 98 Calcium 8.5 Magnesium 1.6 Total Bilirubin 0.9 Direct Bilirubin 0.6 H AST 130 H ALT 94 H Alkaline Phosphatase 126 H Total Protein 6.4 L Albumin 3.0 L Discharge Plan Discharge Patient Disposition: Home, Self-Care Discharge Diagnosis: alcohol withdrawal Referrals: Jone Aly MD [Primary Care Provider] - 1 Week Discharge Medications: Continued atorvastatin 10 mg Tablet 10 mg PO DAILY RF: 0 thiamine HCl (vitamin B1) 100 mg Tablet 100 mg PO DAILY RF: 0 lorazepam 0.5 mg Tablet 0.5 mg PO TID PRN (Reason: Anxiety) RF: 0 Discharge Orders: Discharge Order (Routine); Ordered 07/27/21 Ordered By: Maykel Dacosta Diet: advance to usual diet Activity on Discharge: As tolerated Stand Alone Forms: Patient Portal Discharge page Care Plan Goals: recovery Health Concerns: alcohol Plan of Treatment: avoid alcohol Assessment: see above
[2021-07-27 11:23] VITALS: BP 143/91; PULSE 88; O2SAT 98
[2021-07-27 12:00] VITALS: BP 132/94; PULSE 88; RESP 18; TEMP 36.4; O2SAT 98
--- NOTE | 2021-07-27 12:33 | MHC.CM.PN ---
PATIENT IS AGREEABLE TO A REFERRAL TO [facility] FOR HOME P.T. AND HOME HEALTH AIDE. REFERRAL PLACED. HOSPITALIST IN AGREEMENT. REFERRAL ALSO PLACED TO [facility] IN [place] THAT THEY CAN OFFER SERVICES DESPITE PATIENT'S AGE. REFERRAL PLACED PER PATIENT AND (IN ROOM) REQUEST.
--- NOTE | 2021-07-27 12:40 | P.F2F_ITS ---
Service Date Service Date: 07/27/21 Reasons for Services Reason for senior care: medication management, medication treatment and teach disease management Reason for physical therapy: home safety and mobility, therapeutic exercises and gait/transfer training Homebound: Leaving the home is medically contraindicated at this time without the asist of a device and/or another person due th the listed conditions above and below. Certification: Based on the above findings, I certify that this patient is confined to the home and needs intermittent senior care care, physical therapy and/or speech therapy, or continues to need occupational therapy. The patient is under my care, and I have initiated the establishment of the plan of care. The patient will be followed by a physician who will periodically review the plan of care.
== END 2021-07-27 12:00 | disposition home health service (06) | DRG 280 ==
LOC: HO.ED 07-23 01:00 → HO.EDOVER 07-23 01:06 → HO.S3 07-23 11:35
PROVIDERS: Admitting Provider Hospitalist; Emergency Provider Emergency Medicine; PCP Internal Medicine; Visit Provider Internal Medicine
DX: K70.10 Alcoholic hepatitis without ascites (principal); R56.9 Unspecified convulsions; E83.42 Hypomagnesemia; K29.20 Alcoholic gastritis without bleeding; R13.10 Dysphagia, unspecified; F10.239 Alcohol dependence with withdrawal, unspecified; F17.210 Nicotine dependence, cigarettes, uncomplicated; R74.01 Elevation of levels of liver transaminase levels; E87.6 Hypokalemia; Z20.822 Contact with and (suspected) exposure to COVID-19; Z71.6 Tobacco abuse counseling; Z79.899 Other long term (current) drug therapy
CPT/HCPCS: 36415; 70450; 71045; 80048; 80076; 80184; 82077; 82947; 83690; 83735; 83880; 85025; 85027; 86704; 86706; 86709; 86803; 87340; 87635; 92610; 93005; 96365; 96366; 96372; 96375; 97162; 99285; J2060; J2560; J3411; J3475

== ENCOUNTER 2022-04-08 22:35 | Emergency (ER) | payer MEDICAID, SELFPAY ==
[2022-04-08 22:43] VITALS: BP 104/66; PULSE 84; O2SAT 97; BMI 25.8
[2022-04-08 22:46] VITALS: BP 104/60; PULSE 87; RESP 22; TEMP 36.4; O2SAT 96
--- NOTE | 2022-04-08 22:49 | ECG_ITS ---
Test Reason : Seizure Blood Pressure : / mmHG Vent. Rate : 083 BPM Atrial Rate : 083 BPM P-R Int : 158 ms QRS Dur : 098 ms QT Int : 408 ms P-R-T Axes : 065 077 079 degrees QTc Int : 479 ms Normal sinus rhythm Nonspecific ST abnormality Borderline ECG When compared with ECG of 22-JUL-2021 22:16, Vent. rate has decreased BY 56 BPM Referred By: Flavia Taylor Electronically Signed By:JAYA HAN
--- NOTE | 2022-04-08 22:50 | ED.GENADULT ---
HPI - General Adult General Chief complaint: ETOH/Substance Use Stated complaint: ETOH, with lightheaddedness Time Seen by Provider: 04/08/22 22:45 Source: patient and EMS Mode of arrival: EMS Limitations: no limitations History of Present Illness HPI narrative: Patient comes to the emergency room after patient's called EMS. Patient was complaining of lightheadedness, feeling that he was about to black out. Patient did not lose consciousness. Patient's got concerned that he was about to have a seizure which he has had in the past and takes medications for it. At this time, patient feels well, no dizziness, no chest pain or shortness of breath. Patient is known to have prior history of alcoholism, encephalopathy, hyponatremia, hypomagnesemia, COPD and delirium tremens. Related Data Home Medications Medication Instructions Recorded Confirmed atorvastatin 10 mg tablet 10 mg PO DAILY 07/22/21 07/22/21 lorazepam 0.5 mg tablet 0.5 mg PO TID PRN 07/22/21 07/22/21 thiamine HCl (vitamin B1) 100 mg 100 mg PO DAILY 07/22/21 07/22/21 tablet Allergies Allergy/AdvReac Type Severity Reaction Status Date / Time No Known Allergies Allergy Verified 01/14/21 15:54 Review of Systems Review of Systems: Constitutional : No Weight loss, No Fever, No Chills, No Night Sweats, No Fatigue, No Malaise ENT/Mouth : No Hearing loss, No Ear Pain, No Nasal Congestion, No Sinus Pain, No Hoarseness, No sore throat, No Rhinorrhea, No Swallowing Difficulty Eyes: No Eye Pain, No Swelling, No Redness, No Foreign Body, No Discharge, No Vision Changes Cardiovascular : No Chest Pain, No SOB, No Dyspnea on Exertion, No Orthopnea, No Edema, No Palpitations Respiratory : No Cough, No Sputum, No Wheezing, No Smoke Exposure, No Dyspnea Gastrointestinal : No Nausea, No Vomiting, No Diarrhea, No Constipation, No abdominal Pain, No Hematochezia, No Melena Genitourinary : no irregular bleeding, No Dysuria, No Urinary Frequency, No Hematuria, No Urinary Incontinence, No Urgency, No Flank Pain, No Urinary Flow Changes, No Hesitancy Musculoskeletal : No joint pain, No Myalgias, No Joint Swelling Skin : No Skin Lesions, No rash Neuro : No Weakness, No Numbness, No Paresthesias, No Loss of Consciousness, complaining of lightheadedness, no headache, no seizure activity Psych : No Anxiety/Panic, No Depression, No SI/HI/AH/VH, No Social Issues, Heme/Lymph: No Bruising, No Bleeding,No Lymphadenopathy Endocrine : No Polyuria, No Polydipsia, No Temperature Intolerance [facility] Past Medical History Medical History (Updated 04/09/22 @ 00:06 by Flavia Taylor MD) Alcohol abuse COPD (chronic obstructive pulmonary disease) DTs (delirium tremens) Elevated liver function tests Hypertension Surgical History Hx of colonoscopy No pertinent past surgical history Social History Social History Household Members: Spouse Housing: House Do you presently have visiting nurse or other home services: No Alcohol intake: current Alcohol intake frequency: 3 or more drinks per day Alcohol type: hard liquor Patient Tobacco Use Status: Current everyday Tobacco user Tobacco use type: Smokeless Tobacco Second Hand Smoke Exposure: No Advance Directives: Yes Advance Directives on File: Yes Advance Directives Date on File: 01/01/21 service: Yes Current occupational status: unemployed Physical Exam ED Vital Signs: Vital Signs - 24 hr 04/08/22 22:46 04/09/22 00:55 Temperature 97.6 F Pulse Rate 87 83 Respiratory Rate 22 H 14 Blood Pressure 104/60 117/74 Pulse Oximetry 96 98 BMI result Body Mass Index 25.8 Const Other: Appearance: Alert. Oriented X3. No acute distress. Eyes: Pupils equal, round and reactive to light. ENT: Pharynx normal. Neck: Normal inspection. Neck supple. No lymph nodes noted. No crepitus CVS: Normal heart rate and rhythm. Pulses normal. Normal S1 and S2 Respiratory: No respiratory distress. Breath sounds normal. No Wheezing. No rales Abdomen: Soft and nontender. No rigidity. No distention. Skin: Skin warm and dry. Normal skin color. Normal skin turgor. Extremities: No lower extremity edema. No Lacerations. No Rash Neuro: Oriented X 3. No motor deficit. No sensory deficit. Moving all extremities. No slurred speech. CN 2 through 12 grossly intact Psych: calm, cooperative, normal affect Course Course Course Narrative: At this time, patient has no complaints, patient states he is here because his got concerned about the dizziness. Patient is not feeling dizzy or lightheaded at this time. All the labs are pending. Patient states that he is compliant with all his medications Patient's creatinine is 2.29, patient's baseline is below 1. Patient is likely dehydrated, states he has been drinking plenty of bourbon but no fluids. Patient will be given IV fluids and then we will recheck a chemistry. Afterwards, patient may metabolize to freedom Sign out given to Dr. Smith Medical Decision Making Lab Data Result diagrams: 04/08/22 23:10 04/08/22 23:10 Labs: Lab Results 04/08/22 04/08/22 04/08/22 Range/Units 23:10 23:10 23:10 WBC 10.6 (4.8-10.8) X10*3/uL RBC 3.63 L (4.60-5.80) X10*6/uL Hgb 12.2 L (14.0-18.0) g/dl Hct 35.3 L (42.0-52.0) % MCV 97.2 (80.0-98.0) fL MCH 33.6 H (27.0-33.0) pg MCHC 34.6 (31.0-36.0) g/dl RDW 13.2 (11.0-16.0) % Plt Count Not Reportable MPV Not Reportable Immature Gran % (Auto) 2.4 H (0.0-0.4) % Neut % (Auto) 76.3 H (45-73) % Lymph % (Auto) 11.4 L (20-40) % [place] % (Auto) 7.9 (2-11) % Eos % (Auto) 1.4 (0-4) % Baso % (Auto) 0.6 (0-2) % Lymph # (Auto) 1.2 (1.2-4.9) X10*3/uL [place] # (Auto) 0.8 (0.1-1.2) X10*3/uL Eos # (Auto) 0.2 (0.0-0.4) X10*3/uL Baso # (Auto) 0.1 (0.0-0.2) X10*3/uL Abs Immat Gran (auto) 0.26 H (0.00-0.03) X10*3/uL Absolute Neuts (auto) 8.1 (2.0-8.3) x10*3/uL Absolute Nucleated RBC 0.000 (0.0-0.012) X10*3/uL Nucleated RBC % (auto) 0.0 (0.0-0.2) /100WBC Smear Tech's Comments VERIFIED PT (9.9-13.0) SEC INR (0.9-1.1) Sodium 132 L (135-145) mmol/L Potassium 3.4 (3.3-5.1) mmol/L Chloride 92 L (96-108) mmol/L Carbon Dioxide 24 (22-29) mmol/L Anion Gap 19 (12-20) BUN 47 H (9-16) mg/dL Creatinine 2.29 H (0.5-1.4) mg/dL Estim Creat Clear Calc 33.6 Estimated GFR 29 Random Glucose 200 H D (60-115) mg/dL Calcium 8.6 (8.4-10.2) mg/dL Magnesium 2.2 (1.6-2.6) mg/dL Total Bilirubin 0.7 (0.0-1.0) mg/dL Direct Bilirubin 0.5 (0.0-0.5) mg/dL AST 113 H (5-37) U/L ALT 44 H (0-40) U/L Alkaline Phosphatase 206 H D (39-117) U/L Troponin I High Sens (<3.5-35.0) ng/L Total Protein 7.3 (6.5-8.0) g/dL Albumin 3.2 L (3.5-5.0) g/dL Lipase 96 H (8-78) U/L Urine Color Urine Appearance Urine pH (5.0-8.0) Ur Specific [place] (1.005-1.025) Urine Protein (NEG-TRACE) MG/DL Urine Glucose (UA) (NEG) MG/DL Urine Ketones (NEG) MG/DL Urine Blood (NEG) Urine Nitrite (NEG) Ur Leukocyte Esterase (NEG) Ethyl Alcohol mg/dL COVID-19 (BRENDAN) Negative (Negative) COVID-19 Clin Com See Note 04/08/22 04/08/2204/08/22 Range/Units 23:10 23:10 23:10 WBC (4.8-10.8) X10*3/uL RBC (4.60-5.80) X10*6/uL Hgb (14.0-18.0) g/dl Hct (42.0-52.0) % MCV (80.0-98.0) fL MCH (27.0-33.0) pg MCHC (31.0-36.0) g/dl RDW (11.0-16.0) % Plt Count MPV Immature Gran % (Auto) (0.0-0.4) % Neut % (Auto) (45-73) % Lymph % (Auto) (20-40) % [place] % (Auto) (2-11) % Eos % (Auto) (0-4) % Baso % (Auto) (0-2) % Lymph # (Auto) (1.2-4.9) X10*3/uL [place] # (Auto) (0.1-1.2) X10*3/uL Eos # (Auto) (0.0-0.4) X10*3/uL Baso # (Auto) (0.0-0.2) X10*3/uL Abs Immat Gran (auto) (0.00-0.03) X10*3/uL Absolute Neuts (auto) (2.0-8.3) x10*3/uL Absolute Nucleated RBC (0.0-0.012) X10*3/uL Nucleated RBC % (auto) (0.0-0.2) /100WBC Smear Tech's Comments PT 10.6 (9.9-13.0) SEC INR 0.9 (0.9-1.1) Sodium (135-145) mmol/L Potassium (3.3-5.1) mmol/L Chloride (96-108) mmol/L Carbon Dioxide (22-29) mmol/L Anion Gap (12-20) BUN (9-16) mg/dL Creatinine (0.5-1.4) mg/dL Estim Creat Clear Calc Estimated GFR Random Glucose (60-115) mg/dL Calcium (8.4-10.2) mg/dL Magnesium (1.6-2.6) mg/dL Total Bilirubin (0.0-1.0) mg/dL Direct Bilirubin (0.0-0.5) mg/dL AST (5-37) U/L ALT (0-40) U/L Alkaline Phosphatase (39-117) U/L Troponin I High Sens 6.5 (<3.5-35.0) ng/L Total Protein (6.5-8.0) g/dL Albumin (3.5-5.0) g/dL Lipase (8-78) U/L Urine Color Urine Appearance Urine pH (5.0-8.0) Ur Specific [place] (1.005-1.025) Urine Protein (NEG-TRACE) MG/DL Urine Glucose (UA) (NEG) MG/DL Urine Ketones (NEG) MG/DL Urine Blood (NEG) Urine Nitrite (NEG) Ur Leukocyte Esterase (NEG) Ethyl Alcohol 161 mg/dL COVID-19 (BRENDAN) (Negative) COVID-19 Clin Com 04/09/22 Range/Units 00:45 WBC (4.8-10.8) X10*3/uL RBC (4.60-5.80) X10*6/uL Hgb (14.0-18.0) g/dl Hct (42.0-52.0) % MCV (80.0-98.0) fL MCH (27.0-33.0) pg MCHC (31.0-36.0) g/dl RDW (11.0-16.0) % Plt Count MPV Immature Gran % (Auto) (0.0-0.4) % Neut % (Auto) (45-73) % Lymph % (Auto) (20-40) % [place] % (Auto) (2-11) % Eos % (Auto) (0-4) % Baso % (Auto) (0-2) % Lymph # (Auto) (1.2-4.9) X10*3/uL [place] # (Auto) (0.1-1.2) X10*3/uL Eos # (Auto) (0.0-0.4) X10*3/uL Baso # (Auto) (0.0-0.2) X10*3/uL Abs Immat Gran (auto) (0.00-0.03) X10*3/uL Absolute Neuts (auto) (2.0-8.3) x10*3/uL Absolute Nucleated RBC (0.0-0.012) X10*3/uL Nucleated RBC % (auto) (0.0-0.2) /100WBC Smear Tech's Comments PT (9.9-13.0) SEC INR (0.9-1.1) Sodium (135-145) mmol/L Potassium (3.3-5.1) mmol/L Chloride (96-108) mmol/L Carbon Dioxide (22-29) mmol/L Anion Gap (12-20) BUN (9-16) mg/dL Creatinine (0.5-1.4) mg/dL Estim Creat Clear Calc Estimated GFR Random Glucose (60-115) mg/dL Calcium (8.4-10.2) mg/dL Magnesium (1.6-2.6) mg/dL Total Bilirubin (0.0-1.0) mg/dL Direct Bilirubin (0.0-0.5) mg/dL AST (5-37) U/L ALT (0-40) U/L Alkaline Phosphatase (39-117) U/L Troponin I High Sens (<3.5-35.0) ng/L Total Protein (6.5-8.0) g/dL Albumin (3.5-5.0) g/dL Lipase (8-78) U/L Urine Color YELLOW Urine Appearance CLEAR Urine pH 6.0 (5.0-8.0) Ur Specific [place] 1.020 (1.005-1.025) Urine Protein TRACE (NEG-TRACE) MG/DL Urine Glucose (UA) NEG (NEG) MG/DL Urine Ketones 5 (NEG) MG/DL Urine Blood NEG (NEG) Urine Nitrite NEG (NEG) Ur Leukocyte Esterase NEG (NEG) Ethyl Alcohol mg/dL COVID-19 (BRENDAN) (Negative) COVID-19 Clin Com Discharge Plan Discharge Clinical Impression: Alcohol intoxication, Acute kidney injury Patient Disposition: Still a Patient Prescriptions: No Action atorvastatin 10 mg Tablet 10 mg PO DAILY 0RF thiamine HCl (vitamin B1) 100 mg Tablet 100 mg PO DAILY 0RF lorazepam 0.5 mg Tablet 0.5 mg PO TID PRN (Reason: Anxiety) 0RF
[2022-04-08] MEDS: LORazepam 1 MG TABLET PO (23:12)
[2022-04-08 23:19] LABS: Hematocrit 35.3 % (42.0-52.0); PLT CLUMP 1; SCAN SMEAR FLAG 1
[2022-04-08 23:21] LABS: Basophils Absolute Auto 0.1 X10*3/uL (0.0-0.2); Basophils Percent Auto 0.6 % (0-2); Eosinophils Absolute Auto 0.2 X10*3/uL (0.0-0.4); Eosinophils Percent Auto 1.4 % (0-4); Hemoglobin 12.2 g/dl (14.0-18.0); Imm Gran Abs Auto 0.26 X10*3/uL (0.00-0.03); Imm Gran Pct Auto 2.4 % (0.0-0.4); Lymphocytes Absolute Auto 1.2 X10*3/uL (1.2-4.9); Lymphocytes Percent Auto 11.4 % (20-40); MANUAL DIFF FLAG SCAN; Mean Corpuscular HGB Conc 34.6 g/dl (31.0-36.0); Mean Corpuscular Hemoglobin 33.6 pg (27.0-33.0); Mean Corpuscular Volume 97.2 fL (80.0-98.0); Monocytes Absolute Auto 0.8 X10*3/uL (0.1-1.2); Monocytes Percent Auto 7.9 % (2-11); Neutrophils Absolute Auto 8.1 x10*3/uL (2.0-8.3); Neutrophils Percent Auto 76.3 % (45-73); Red Blood Count 3.63 X10*6/uL (4.60-5.80); Red Cell Distribution Width 13.2 % (11.0-16.0)
[2022-04-08 23:32] LABS: COVID-19 Test Negative (Negative); INTERNATIONAL NORM RATIO 0.9 (0.9-1.1); Prothrombin Time 10.6 SEC (9.9-13.0)
[2022-04-08 23:34] LABS: Ethanol 161 mg/dL
[2022-04-08 23:40] LABS: Alanine Aminotransferase 44 U/L (0-40); Albumin Level 3.2 g/dL (3.5-5.0); Alkaline Phosphatase 206 U/L (39-117); Anion Gap 19 (12-20); Aspartate Amino Transferase 113 U/L (5-37); Bilirubin Direct 0.5 mg/dL (0.0-0.5); Bilirubin Total 0.7 mg/dL (0.0-1.0); Blood Urea Nitrogen 47 mg/dL (9-16); Calcium 8.6 mg/dL (8.4-10.2); Carbon Dioxide 24 mmol/L (22-29); Chloride 92 mmol/L (96-108); Creatinine Clr Calc Pharmacy 33.6; Estimated Glomerular Filt Rate 29; Glucose Random 200 mg/dL (60-115); Lipase 96 U/L (8-78); Magnesium 2.2 mg/dL (1.6-2.6); Potassium 3.4 mmol/L (3.3-5.1); Sodium 132 mmol/L (135-145); Total Protein 7.3 g/dL (6.5-8.0)
[2022-04-08 23:42] LABS: SLIDE REVIEW VERIFIED; White Blood Count 10.6 X10*3/uL (4.8-10.8)
[2022-04-08 23:44] LABS: Troponin-I High Sensitivity 6.5 ng/L (<3.5-35.0)
[2022-04-09] MEDS: 0.9 % Sodium Chloride 2,000 ML 999 ML IVCONT (00:51)
[2022-04-09 00:55] VITALS: BP 117/74; PULSE 83; RESP 14; O2SAT 98
[2022-04-09 00:59] LABS: Appearance Urine CLEAR; Color Urine YELLOW; Glucose Urine UA NEG (NEG); Leukocyte Esterase Urine NEG (NEG); Nitrite Urine NEG (NEG); Urine Blood NEG (NEG); Urine Ketones 5 MG/DL (NEG); Urine Protein TRACE MG/DL (NEG-TRACE)
[2022-04-09 03:03] LABS: Amphetamine Screen Urine Not Detected (Not Detect); Barbiturates, Urine Not Detected (Not Detect); Benzodiazepines Screen Urine Not Detected (Not Detect); Cannabinoid Screen Urine POSITIVE (Not Detect); Cocaine Screen Urine Not Detected (Not Detect); Fentanyl, urine Not Detected (Not Detect); Opiate Screen Urine Not Detected (Not Detect); Phencyclidine Screen Urine Not Detected (Not Detect)
[2022-04-09 03:10] VITALS: BP 132/77; PULSE 81; RESP 14; O2SAT 97
[2022-04-09 04:33] LABS: Anion Gap 18 (12-20); Blood Urea Nitrogen 39 mg/dL (9-16); Calcium 7.7 mg/dL (8.4-10.2); Carbon Dioxide 20 mmol/L (22-29); Chloride 99 mmol/L (96-108); Creatinine Clr Calc Pharmacy 47.7; Estimated Glomerular Filt Rate 45; Glucose Random 89 mg/dL (60-115); Potassium 3.5 mmol/L (3.3-5.1); Sodium 133 mmol/L (135-145)
[2022-04-09 04:44] VITALS: BP 130/77; PULSE 84; RESP 14; O2SAT 94
[2022-04-09] MEDS: 0.9 % Sodium Chloride 1,000 ML 999 ML IV (04:47)
== END 2022-04-09 06:19 | disposition home or self-care (01) ==
PROVIDERS: Emergency Medicine; Emergency Provider Emergency Medicine; PCP Internal Medicine
DX: F10.129 Alcohol abuse with intoxication, unspecified (principal); Y90.5 Blood alcohol level of 100-119 mg/100 ml; N17.9 Acute kidney failure, unspecified; R42 Dizziness and giddiness; R06.02 Shortness of breath; Z20.822 Contact with and (suspected) exposure to COVID-19; F17.200 Nicotine dependence, unspecified, uncomplicated; Z71.6 Tobacco abuse counseling; Z79.899 Other long term (current) drug therapy
CPT/HCPCS: 36415; 80048; 80076; 80307; 81003; 82077; 83690; 83735; 83880; 84484; 85025; 85610; 87635; 93005; 96360; 96361; 99284; 99285

== ENCOUNTER → 2022-07-13 14:42 | Outpatient (BNVA) | payer MEDICAID, SELFPAY | PROVIDERS: PCP Internal Medicine; Visit Provider Surgery | DX: D18.01 Hemangioma of skin and subcutaneous tissue (principal); K40.90 Unilateral inguinal hernia, without obstruction or gangrene, not specified as recurrent | CPT/HCPCS: 99202 ==

== ENCOUNTER 2022-08-26 12:33 | Outpatient (REF) | payer MEDICAID, SELFPAY ==
[2022-08-26 12:40] VITALS: BMI 25.8
[2022-08-26 12:41] VITALS: BP 126/98; PULSE 69; RESP 16; TEMP 36.3; O2SAT 100
--- NOTE | 2022-08-26 13:26 | W.PM.OPN ---
Operative Note Operative Note Date of Service: 08/26/22 Narrative: Preoperative diagnosis: Hemangioma right upper lip Postoperative diagnosis: Same Procedure: Excision of hemangioma right upper lip Surgeon: David Vo MD Emergency Room Tech: TOMMY Mirza Anesthesia: Local lidocaine 2% with epinephrine Indications for procedure: 62-year-old male patient presenting with a raised red Abreu hemangioma of the right lip which has expanded and occasionally causes bleeding. He presents today for excision. Operative findings: 1 cm hemangioma right upper left Specimen: Hemangioma right upper lip Estimated blood loss: 2 mm Complications: None Procedure details: Patient was brought to the minor surgery suite placed in a sitting position. The site of surgery was confirmed by the patient in the right upper lip. After assuring informed consent the skin was prepped with Betadine and draped in a sterile fashion. Local anesthesia was then infiltrated around the lesion. The lesion was then grasped with a hemostat at its base. Scalpel was then used to excise lesion circumferentially down to the subcutaneous tissue. Pressure was held to maintain hemostasis. Skin was then closed using interrupted 5 0 nylon sutures. Bacitracin ointment was applied to the wound. The patient tolerated the procedure well. He was discharged to home in stable condition.
[2022-08-26 13:30] VITALS: BP 124/108; PULSE 68; RESP 16; O2SAT 99
== END 2022-08-26 12:34 | disposition home or self-care (01) ==
LOC: HO.MS 12:33
PROVIDERS: PCP Internal Medicine; Visit Provider Surgery
PROC: (CPT 11441; principal; 2022-08-26 13:00)
DX: D18.01 Hemangioma of skin and subcutaneous tissue (principal)
CPT/HCPCS: 11441; 88305

== ENCOUNTER 2023-07-15 07:40 | Outpatient (REF) | payer MEDICAID, SELFPAY ==
[2023-07-15 11:07] LABS: MANUAL DIFF FLAG NO
[2023-07-15 11:34] LABS: Basophils Absolute Auto 0.1 X10*3/uL (0.0-0.2); Eosinophils Absolute Auto 0.9 X10*3/uL (0.0-0.4); Eosinophils Percent Auto 10.4 % (0-4); Hematocrit 40.6 % (42.0-52.0); Hemoglobin 13.1 g/dl (14.0-18.0); Imm Gran Abs Auto 0.03 X10*3/uL (0.00-0.03); Imm Gran Pct Auto 0.3 % (0.0-0.4); Lymphocytes Absolute Auto 1.9 X10*3/uL (1.2-4.9); Mean Corpuscular HGB Conc 32.3 g/dl (31.0-36.0); Mean Corpuscular Hemoglobin 29.1 pg (27.0-33.0); Mean Corpuscular Volume 90.2 fL (80.0-98.0); Mean Platelet Volume 10.3 fL (9.4-12.4); Monocytes Absolute Auto 0.8 X10*3/uL (0.1-1.2); Monocytes Percent Auto 9.4 % (2-11); Neutrophils Percent Auto 56.9 % (45-73); Platelet Count 293 X10*3/uL (160-400); Red Cell Distribution Width 13.2 % (11.0-16.0); White Blood Count 8.8 X10*3/uL (4.8-10.8)
[2023-07-15 12:14] LABS: Alanine Aminotransferase 21 U/L (0-40); Albumin Level 4.1 g/dL (3.5-5.0); Alkaline Phosphatase 70 U/L (39-117); Anion Gap 12 (12-20); Aspartate Amino Transferase 22 U/L (5-37); Bilirubin Direct 0.1 mg/dL (0.0-0.5); Bilirubin Total 0.4 mg/dL (0.0-1.0); Blood Urea Nitrogen 17 mg/dL (9-16); Carbon Dioxide 27 mmol/L (22-29); Chloride 103 mmol/L (96-108); Cholesterol 158 mg/dL (<200); Estimated Glomerular Filt Rate 54; Glucose Fasting 108 mg/dL (60-99); HDL Cholesterol 45 mg/dL (>40); LDL Cholesterol Calculated 95 mg/dL (<100); Potassium 4.9 mmol/L (3.3-5.1); Sodium 137 mmol/L (135-145); Triglycerides 93 mg/dL (<150)
[2023-07-15 12:54] LABS: Prostate Specific Antigen 0.22 ng/mL (<0.05-4.0)
== END 2023-07-15 07:41 | disposition home or self-care (01) ==
LOC: HO.HMGCLDS 07:40
PROVIDERS: PCP Internal Medicine; Visit Provider Internal Medicine
DX: R53.83 Other fatigue (principal); E78.5 Hyperlipidemia, unspecified; Z12.5 Encounter for screening for malignant neoplasm of prostate
CPT/HCPCS: 36415; 80051; 80061; 80076; 82565; 82947; 84153; 84520; 85025